=== PATIENT | male | born 1960 | race Caucasian/White ===

== ENCOUNTER 2020-10-23 11:50 | Emergency (ER) | payer OTHER, SELFPAY ==
--- NOTE | ~2020-10-23 | CT_ITS ---
EXAMINATION: CT ABDOMEN AND PELVIS WITH CONTRAST CLINICAL INFORMATION: Left lower quadrant pain. Trouble urinating. COMPARISON: None TECHNIQUE: Multidetector volumetric images were obtained from the superior aspect of the liver through the pubic symphysis following administration 85 mL of Omnipaque 350 intravenous contrast. Sagittal and coronal reformatted images were obtained on the technologist's workstation. Oral contrast: Yes This CT examination was performed using dose optimization techniques as appropriate, variously including the following: *Automated exposure control *Adjustment of mA and/or kV according to patient size (this includes techniques or standardized protocols for targeted exams where dose is matched to indication/reason for exam; i.e. extremities or head) *Use of iterative reconstruction technique DLP: 550 mGy-cm FINDINGS: LUNG BASES: The visualized lung bases are unremarkable. LIVER, GALLBLADDER, AND BILIARY TREE: There is a 1.6 cm low-attenuation lesion in the periphery of the medial segment of the left lobe of the liver. The appearance following contrast measure 50 not compatible with a simple cyst. The liver is otherwise unremarkable. The gallbladder is unremarkable. There is no biliary duct dilatation. PANCREAS: Unremarkable. SPLEEN: Unremarkable. ADRENAL GLANDS: The left adrenal gland is enlarged and low in attenuation probably representing adenomatous change. The right adrenal gland is normal-appearing. KIDNEYS AND URETERS:The right kidney is small with areas of renal cortical thinning or scarring. There is a small 1 to 2 mm stone in the upper pole of the right kidney. The left kidney is normal. BLADDER: There is mild wall thickening along the left bladder wall adjacent to the diverticular disease. No air in the bladder is seen. GASTROINTESTINAL TRACT: There is diverticulosis of the colon. There is a wall thickening and low attenuation in the wall of the proximal sigmoid colon. There is stranding of the adjacent fat and trace amount of adjacent fluid.. Findings are suggestive of acute diverticulitis. This abuts the left lateral bladder wall and there is focal mild bladder wall thickening, likely reactive. Small and large bowel is otherwise unremarkable. The appendix is normal. The stomach is normal. ABDOMINAL WALL: No significant hernia is appreciated. LYMPH NODES: There are no enlarged lymph nodes. There is no ascites. VASCULAR: There is evidence of mild atherosclerotic disease. PELVIC VISCERA: The prostate gland appears to have been removed. OSSEOUS STRUCTURES: There are degenerative changes of the spine. CT/CT abdomen pelvis w con IMPRESSION: Sigmoid diverticulitis. This abuts the bladder and there is a focal bladder wall thickening. No air in the bladder to suggest fistula is seen. Small right kidney with areas of renal cortical thinning or scarring. Small right upper pole renal stone. Enlarged left adrenal gland probably representing adenomatous change. 1.6 cm liver lesion not compatible with a simple cyst. Comparison with old outside exams if available is recommended. Otherwise this could be further evaluated with ultrasound or MRI.
[2020-10-23 12:08] VITALS: BP 180/82; PULSE 82; RESP 16; TEMP 37; O2SAT 99; BMI 24.3
--- NOTE | 2020-10-23 12:34 | ED_ITS ---
HPI - Abdominal Pain General Chief Complaint: Abdominal Pain Stated Complaint: low abd pain Time Seen by Provider: 10/23/20 12:17 Source: patient Mode of arrival: ambulatory Limitations: no limitations History of Present Illness HPI narrative: 60 yo male with past medical history of prostate cancer s/p TURP in 2016 here with complaints of lower abdominal pain with decreased urination for the last 2 days. Patient told me that he is only able to dribble a small amount of urine. No dysuria, hematuria, fevers, chills, nausea, vomiting, constipation. Related Data Previous Rx's Medication Instructions Recorded levofloxacin 750 mg PO DAILY 10 Days #10 tab 10/23/20 metronidazole [Flagyl] 500 mg PO TID #21 tab 10/23/20 oxycodone 5 mg PO Q6H PRN #10 tab 10/23/20 tamsulosin [Flomax] 0.4 mg PO DAILY #20 cap 10/23/20 Allergies Allergy/AdvReac Type Severity Reaction Status Date / Time No Known Allergies Allergy Unverified 02/16/20 15:20 [No Known Allergies*] Review of Systems Review of Systems Yes all other systems are reviewed and are negative Constitutional: Reports no additional constitutional complaints, Denies body ache(s), Denies chills, Denies fever(s), Denies headache(s) and Denies weakness Eyes: Reports no additional eye complaints and Denies change in vision Reports system reviewed and no additional complaints, except as documented, Denies dizziness, Denies headache(s), Denies nasal congestion, Denies nasal discharge and Denies neck pain Cardiovascular: Reports no additional cardiovascular complaints, Denies chest pain, Denies leg edema and Denies dyspnea Respiratory: Reports no additional respiratory complaints, Denies cough and Denies dyspnea Gastrointestinal: Reports no additional gastrointestinal complaints, Reports abdominal pain, Denies diarrhea, Denies nausea and Denies vomiting Genitourinary: Reports oliguria, Denies dysuria, Denies flank pain, Denies testicular pain, Denies urinary frequency, Reports urinary hesitancy, Denies urinary incontinence and Denies urinary urgency Musculoskeletal: Reports no additional musculoskeletal complaints, Denies back pain, Denies arthralgias, Denies joint swelling, Denies neck pain, Denies numbness and Denies tingling Skin/Breast: Reports system reviewed and no additional complaints, except as docu and Denies rash Reports system reviewed and no additional complaints, except as documented, Denies Abnormal speech present, Denies dizziness, Denies headache(s), Denies numbness, Denies tingling and Denies weakness Physical Exam Vital Signs: Vital Signs: Last Vital Signs Temp 98.6 F 10/23/20 12:08 Pulse 70 10/23/20 16:01 Resp 16 10/23/20 16:01 BP 149/85 H 10/23/20 16:01 Pulse Ox 96 10/23/20 16:01 Body Mass Index 24.3 Const: General: cooperative, healthy appearing, comfortable and no acute distress Orientation/consciousness: patient oriented x3 Limitations: no limitations HENMT: Head: Yes normal to inspection Ears: hearing grossly normal bilaterally General nose exam: Normal external nose present Face and sinus: Yes normal facial exam Mouth: Normal oral and palatal mucosa present Throat: Yes posterior oropharynx normal Eyes: General: appearance normal, both eyes and all related structures Pupils: Equal, round and reactive pupils present Neck: Neck: Yes normal visual inspection Chest: Chest palpation & inspection: normal inspection of the chest Resp: Effort & Inspection: normal respiratory effort Auscultation: clear to auscultation bilaterally Cardio: Rate: regular rate Rhythm: regular rhythm Peripheral pulses: Peripheral pulses 2+ throughout GI: Inspection: Yes normal to inspection Palpation (GI): Soft to palpation and Tenderness to palpation present (GI) (Suprapubic and left lower quadrant with rebound) Auscultation: normal bowel sounds : Other: Deferred exam Back/Spine/Pelvis: Thoracic/Lumbar Spine: thoracic and lumbar spine normal to inspection Skin: General skin exam: no rashes or lesions noted Neuro: General: patient oriented x3, no focal motor deficits and normal sensation to monofilament Cranial nerves: Yes Equal, round and reactive pupils present Cognition (Neuro): normal cognition Speech: No Abnormal speech present Gait exam (Neuro): Normal gait present Motor exam (neuro): 5/5 motor strength present throughout Extrem: General: Yes normal to inspection Course Course Course Narrative: 60-year-old male here with urinary dribbling/voiding small amounts, lower abdominal pain for 2 days. Will need postvoid residual, UA, labs, CT A/P 1555-Labs unremarkable. PVR 70ml. CT c/w with sigmoid diverticulitis. This abuts the bladder and there is a focal bladder wall thickening area. No air in the bladder to suggest a fistula. UA pending. Pain well controlled. No vom iting. Patient can likely be discharged home. 1630-UA is negative. Pain well controlled. Reviewed worrisome signs and symptoms when to return to the emergency department. Comfortable discharge ho me. MDM - Abdominal Pain Differential Diagnosis Differential diagnosis: Likely calculus of kidney, diverticulitis and renal colic Medical Records Attestation: I reviewed the patient's medical records. Lab Data Attestation: I reviewed the patient's lab results. Result diagrams: 10/23/20 13:47 10/23/20 13:47 Labs: Lab Results 10/23/20 10/23/20 10/23/20 Range/Units 13:47 13:47 13:47 WBC 10.3 (4.8-10.8) X10*3/uL RBC 4.84 (4.60-5.80) X10*6/uL Hgb 15.5 (14.0-18.0) g/dl Hct 45.2 (42-52) % MCV 93.4 (80-98) fL MCH 32.0 (27.0-33.0) pg MCHC 34.3 (31.0-36.0) g/dl RDW 12.7 (11.0-16.0) % Plt Count 208 (160-400) X10*3/uL MPV 9.4 (9.4-12.4) fL Immature Gran % (Auto) 0.4 (0.0-0.4) % Neut % (Auto) 76.5 H (45-73) % Lymph % (Auto) 13.4 L (20-40) % [place] % (Auto) 7.1 (2-11) % Eos % (Auto) 2.0 (0-4) % Baso % (Auto) 0.6 (0-2) % Lymph # (Auto) 1.4 (1.2-4.9) X10*3/uL [place] # (Auto) 0.7 (0.1-1.2) X10*3/uL Eos # (Auto) 0.2 (0.0-0.4) X10*3/uL Baso # (Auto) 0.1 (0.0-0.2) X10*3/uL Abs Immat Gran (auto) 0.04 H (0.00-0.03) X10*3/uL Absolute Neuts (auto) 7.9 (2.0-8.3) X10*3/uL Absolute Nucleated RBC 0.000 (0.0-0.012) X10*3/uL Nucleated RBC % (auto) 0.0 (0.0-0.2) /100WBC Hold Blue Top SEE NOTE Sodium 138 (135-145) mmol/L Potassium 4.2 (3.3-5.1) mmol/L Chloride 104 (96-108) mmol/L Carbon Dioxide 25 (22-29) mmol/L Anion Gap 13 (12-20) BUN 11 (9-16) mg/dL Creatinine 0.89 (0.5-1.4) mg/dL Estim Creat Clear Calc 83.2 Estimated GFR > 60 Random Glucose 89 (60-115) mg/dL Calcium 9.0 (8.4-10.2) mg/dL Total Bilirubin 0.3 (0.0-1.0) mg/dL Direct Bilirubin 0.2 (0.0-0.5) mg/dL AST 17 (5-37) U/L ALT 23 (0-40) U/L Alkaline Phosphatase 88 (39-117) U/L Total Protein 6.9 (6.5-8.0) g/dL Albumin 4.2 (3.5-5.0) g/dL Urine Color Urine Appearance Urine pH (5.0-8.0) Ur Specific [place] (1.005-1.025) Urine Protein (NEG-TRACE) MG/DL Urine Glucose (UA) (NEG) MG/DL Urine Ketones (NEG) MG/DL Urine Blood (NEG) Urine Nitrite (NEG) Ur Leukocyte Esterase (NEG) Urine RBC (0) /HPF Urine WBC (0-4) /HPF Ur Squamous Epith Cells /LPF Urine Bacteria /LPF 10/23/20 Range/Units 15:56 WBC (4.8-10.8) X10*3/uL RBC (4.60-5.80) X10*6/uL Hgb (14.0-18.0) g/dl Hct (42-52) % MCV (80-98) fL MCH (27.0-33.0) pg MCHC (31.0-36.0) g/dl RDW (11.0-16.0) % Plt Count (160-400) X10*3/uL MPV (9.4-12.4) fL Immature Gran % (Auto) (0.0-0.4) % Neut % (Auto) (45-73) % Lymph % (Auto) (20-40) % [place] % (Auto) (2-11) % Eos % (Auto) (0-4) % Baso % (Auto) (0-2) % Lymph # (Auto) (1.2-4.9) X10*3/uL [place] # (Auto) (0.1-1.2) X10*3/uL Eos # (Auto) (0.0-0.4) X10*3/uL Baso # (Auto) (0.0-0.2) X10*3/uL Abs Immat Gran (auto) (0.00-0.03) X10*3/uL Absolute Neuts (auto) (2.0-8.3) X10*3/uL Absolute Nucleated RBC (0.0-0.012) X10*3/uL Nucleated RBC % (auto) (0.0-0.2) /100WBC Hold Blue Top Sodium (135-145) mmol/L Potassium (3.3-5.1) mmol/L Chloride (96-108) mmol/L Carbon Dioxide (22-29) mmol/L Anion Gap (12-20) BUN (9-16) mg/dL Creatinine (0.5-1.4) mg/dL Estim Creat Clear Calc Estimated GFR Random Glucose (60-115) mg/dL Calcium (8.4-10.2) mg/dL Total Bilirubin (0.0-1.0) mg/dL Direct Bilirubin (0.0-0.5) mg/dL AST (5-37) U/L ALT (0-40) U/L Alkaline Phosphatase (39-117) U/L Total Protein (6.5-8.0) g/dL Albumin (3.5-5.0) g/dL Urine Color YELLOW Urine Appearance CLEAR Urine pH 6.0 (5.0-8.0) Ur Specific [place] <= 1.005 (1.005-1.025) Urine Protein NEG (NEG-TRACE) MG/DL Urine Glucose (UA) NEG (NEG) MG/DL Urine Ketones NEG (NEG) MG/DL Urine Blood TRACE (NEG) Urine Nitrite NEG (NEG) Ur Leukocyte Esterase NEG (NEG) Urine RBC 0-2 (0) /HPF Urine WBC 0 (0-4) /HPF Ur Squamous Epith Cells TRACE /LPF Urine Bacteria NONE /LPF Imaging Data CT scan - abdomen: Attestation: I personally reviewed and interpreted this imaging study as follows: Radiologist's impression: [facility] [place] [id number] Scan ReportSigned Patient: Prieto Singh JMR#: [id number]: 8Acct:[id number]/Sex: 60 / MADM Date: 10/23/20Loc: EDAttending Dr: Ordering Physician: DAVE GRANT NP Date of Service: 10/23/20 Procedure(s): CT abdomen pelvis w con Accession Number(s): [id number] cc: DAVE GRANT NP~ EXAMINATION: CT ABDOMEN AND PELVIS WITH CONTRAST CLINICAL INFORMATION: Left lower quadrant pain. Trouble urinating. COMPARISON: None TECHNIQUE: Multidetector volumetric images were obtained from the superior aspect of the liver through the pubic symphysis following administration 85 mL of Omnipaque 350 intravenous contrast. Sagittal and coronal reformatted images were obtained on the technologist's workstation. Oral contrast: Yes This CT examination was performed using dose optimization techniques as appropriate, variously including the following: *Automated exposure control *Adjustment of mA and/or kV according to patient size (this includes techniques or standardized protocols for targeted exams where dose is matched to indication/reason for exam; i.e. extremities or head) *Use of iterative reconstruction technique DLP: 550 mGy-cm FINDINGS: LUNG BASES: The visualized lung bases are unremarkable. LIVER, GALLBLADDER, AND BILIARY TREE: There is a 1.6 cm low-attenuation lesion in the periphery of the medial segment of the left lobe of the liver. The appearance following contrast measure 50 not compatible with a simple cyst. The liver is otherwise unremarkable. The gallbladder is unremarkable. There is no biliary duct dilatation. PANCREAS: Unremarkable. SPLEEN: Unremarkable. ADRENAL GLANDS: The left adrenal gland is enlarged and low in attenuation probably representing adenomatous change. The right adrenal gland is normal-appearing. KIDNEYS AND URETERS:The right kidney is small with areas of renal cortical thinning or scarring. There is a small 1 to 2 mm stone in the upper pole of the right kidney. The left kidney is normal. BLADDER: There is mild wall thickening along the left bladder wall adjacent to the diverticular disease. No air in the bladder is seen. GASTROINTESTINAL TRACT: There is diverticulosis of the colon. There is a wall thickening and low attenuation in the wall of the proximal sigmoid colon. There is stranding of the adjacent fat and trace amount of adjacent fluid.. Findings are suggestive of acute diverticulitis. This abuts the left lateral bladder wall and there is focal mild bladder wall thickening, likely reactive. Small and large bowel is otherwise unremarkable. The appendix is normal. The stomach is normal. ABDOMINAL WALL: No significant hernia is appreciated. LYMPH NODES: There are no enlarged lymph nodes. There is no ascites. VASCULAR: There is evidence of mild atherosclerotic disease. PELVIC VISCERA: The prostate gland appears to have been removed. OSSEOUS STRUCTURES: There are degenerative changes of the spine. CT/CT abdomen pelvis w con IMPRESSION: Sigmoid diverticulitis. This abuts the bladder and there is a focal bladder wall thickening. No air in the bladder to suggest fistula is seen. Small right kidney with areas of renal cortical thinning or scarring. Small right upper pole renal stone. Enlarged left adrenal gland probably representing adenomatous change. 1.6 cm liver lesion not compatible with a simple cyst. Comparison with old outside exams if available is recommended. Otherwise this could be further evaluated with ultrasound or MRI. Discharge Plan Discharge Clinical Impression: Diverticulitis Patient Disposition: Home, Self-Care Instructions: Diverticulitis (ED) Additional Instructions: Low residue diet Start your antibiotics as soon as possible Pain medications Return for severe pain, vomiting, fever Your CT showed multiple incidental findings. You were given a copy of your report. You can follow-up with your primary care doctor for this Prescriptions: New metronidazole [Flagyl] 500 mg tablet 500 mg PO TID Qty: 21 RF: 0 levofloxacin 750 mg tablet 750 mg PO DAILY 10 Days Qty: 10 RF: 0 oxycodone 5 mg tablet 5 mg PO Q6H PRN (Reason: pain) Qty: 10 RF: 0 tamsulosin [Flomax] 0.4 mg capsule 0.4 mg PO DAILY Qty: 20 RF: 0 Referrals: Sherron Claros MD [Primary Care Provider] - 2 days Discharge Date/Time: 10/23/20 16:43 [facility] Past Medical History Attestation statement: The following information was validated with the patient. Source: old records reviewed and nursing notes reviewed Medical History Myocardial infarct Prostate CA Social History Social History Alcohol intake: never Smoking Status: Current every day smoker Use of substances other than those prescribed or required for medical reasons: No Advance Directives: No Advance Directives Information Provided: No
[2020-10-23 13:51] LABS: MANUAL DIFF FLAG NO
[2020-10-23 13:54] LABS: Basophils Absolute Auto 0.1 X10*3/uL (0.0-0.2); Basophils Percent Auto 0.6 % (0-2); Eosinophils Absolute Auto 0.2 X10*3/uL (0.0-0.4); Hematocrit 45.2 % (42-52); Hemoglobin 15.5 g/dl (14.0-18.0); Imm Gran Abs Auto 0.04 X10*3/uL (0.00-0.03); Imm Gran Pct Auto 0.4 % (0.0-0.4); Lymphocytes Absolute Auto 1.4 X10*3/uL (1.2-4.9); Lymphocytes Percent Auto 13.4 % (20-40); Mean Corpuscular HGB Conc 34.3 g/dl (31.0-36.0); Mean Corpuscular Volume 93.4 fL (80-98); Mean Platelet Volume 9.4 fL (9.4-12.4); Monocytes Absolute Auto 0.7 X10*3/uL (0.1-1.2); Monocytes Percent Auto 7.1 % (2-11); Neutrophils Absolute Auto 7.9 X10*3/uL (2.0-8.3); Neutrophils Percent Auto 76.5 % (45-73); Platelet Count 208 X10*3/uL (160-400); Red Blood Count 4.84 X10*6/uL (4.60-5.80); Red Cell Distribution Width 12.7 % (11.0-16.0); White Blood Count 10.3 X10*3/uL (4.8-10.8)
[2020-10-23 14:21] LABS: Alanine Aminotransferase 23 U/L (0-40); Albumin Level 4.2 g/dL (3.5-5.0); Alkaline Phosphatase 88 U/L (39-117); Anion Gap 13 (12-20); Aspartate Amino Transferase 17 U/L (5-37); Bilirubin Direct 0.2 mg/dL (0.0-0.5); Bilirubin Total 0.3 mg/dL (0.0-1.0); Blood Urea Nitrogen 11 mg/dL (9-16); Carbon Dioxide 25 mmol/L (22-29); Chloride 104 mmol/L (96-108); Creatinine Clr Calc Pharmacy 83.2; Estimated Glomerular Filt Rate > 60; Glucose Random 89 mg/dL (60-115); Potassium 4.2 mmol/L (3.3-5.1); Sodium 138 mmol/L (135-145); Total Protein 6.9 g/dL (6.5-8.0)
[2020-10-23 16:01] VITALS: BP 149/85; PULSE 70; RESP 16; O2SAT 96
[2020-10-23 16:06] LABS: Glucose Urine UA NEG (NEG); Leukocyte Esterase Urine NEG (NEG); Nitrite Urine NEG (NEG); Specific Gravity - Urine <= 1.005 (1.005-1.025); Urine Blood TRACE (NEG); Urine Ketones NEG (NEG); Urine Protein NEG (NEG-TRACE)
[2020-10-23 16:07] LABS: Appearance Urine CLEAR; Color Urine YELLOW
[2020-10-23 16:14] LABS: RBC Urine 0-2 /HPF (0); Squamous Epithelial Cell Urine TRACE /LPF; WBC Urine 0 /HPF (0-4)
== END 2020-10-23 16:43 | disposition home or self-care (01) ==
PROVIDERS: Nurse Practitioner Family; Emergency Provider Emergency Medicine; PCP Internal Medicine Pulmonary Disease
DX: K57.32 Diverticulitis of large intestine without perforation or abscess without bleeding (principal); R10.30 Lower abdominal pain, unspecified; Z85.46 Personal history of malignant neoplasm of prostate; R93.2 Abnormal findings on diagnostic imaging of liver and biliary tract; K76.9 Liver disease, unspecified
CPT/HCPCS: 36415; 51798; 74177; 80048; 80076; 81001; 85025; 99284; 99285

== ENCOUNTER 2021-01-03 07:18 | Outpatient (REF) | payer OTHER, SELFPAY ==
[2021-01-03 08:31] LABS: MANUAL DIFF FLAG NO
[2021-01-03 08:34] LABS: Basophils Absolute Auto 0.1 X10*3/uL (0.0-0.2); Basophils Percent Auto 0.8 % (0-2); Eosinophils Absolute Auto 0.2 X10*3/uL (0.0-0.4); Eosinophils Percent Auto 3.1 % (0-4); Hematocrit 47.4 % (42-52); Hemoglobin 15.5 g/dl (14.0-18.0); Imm Gran Abs Auto 0.03 X10*3/uL (0.00-0.03); Imm Gran Pct Auto 0.4 % (0.0-0.4); Lymphocytes Absolute Auto 1.5 X10*3/uL (1.2-4.9); Lymphocytes Percent Auto 20.6 % (20-40); Mean Corpuscular HGB Conc 32.7 g/dl (31.0-36.0); Mean Corpuscular Hemoglobin 31.4 pg (27.0-33.0); Mean Platelet Volume 9.7 fL (9.4-12.4); Monocytes Absolute Auto 0.5 X10*3/uL (0.1-1.2); Monocytes Percent Auto 6.2 % (2-11); Neutrophils Absolute Auto 5.1 X10*3/uL (2.0-8.3); Neutrophils Percent Auto 68.9 % (45-73); Platelet Count 267 X10*3/uL (160-400); Red Blood Count 4.94 X10*6/uL (4.60-5.80); White Blood Count 7.5 X10*3/uL (4.8-10.8)
[2021-01-03 08:52] LABS: Glucose Urine UA NEG (NEG); Leukocyte Esterase Urine NEG (NEG); Nitrite Urine NEG (NEG); Specific Gravity - Urine 1.025 (1.005-1.025); Urine Blood 1+ (NEG); Urine Ketones NEG (NEG); Urine Protein NEG (NEG-TRACE)
[2021-01-03 08:54] LABS: Appearance Urine CLEAR; Color Urine YELLOW
[2021-01-03 09:28] LABS: Alanine Aminotransferase 32 U/L (0-40); Albumin Level 4.1 g/dL (3.5-5.0); Alkaline Phosphatase 91 U/L (39-117); Anion Gap 14 (12-20); Aspartate Amino Transferase 26 U/L (5-37); Bilirubin Total 0.3 mg/dL (0.0-1.0); Blood Urea Nitrogen 14 mg/dL (9-16); Calcium 9.1 mg/dL (8.4-10.2); Carbon Dioxide 27 mmol/L (22-29); Chloride 106 mmol/L (96-108); Cholesterol 183 mg/dL; Estimated Glomerular Filt Rate > 60; Glucose Random 89 mg/dL (60-115); HDL Cholesterol 39 mg/dL; LDL Cholesterol Calculated 120 mg/dl; Potassium 4.5 mmol/L (3.3-5.1); Sodium 142 mmol/L (135-145); Total Protein 6.6 g/dL (6.5-8.0); Triglycerides 120 mg/dL; Uric Acid 6.6 mg/dL (3.4-7.0)
[2021-01-03 09:35] LABS: Mucus Urine TRACE /LPF; Squamous Epithelial Cell Urine TRACE /LPF; WBC Urine 0 /HPF (0-4)
[2021-01-03 09:49] LABS: Free T4 (Free Thyroxine) 0.98 ng/dL (0.71-1.85); Prostate Specific Antigen < 0.05 ng/mL (<0.05-4.0); Thyroid Stimulating Hormone 1.32 uIU/mL (0.32-4.0); Vitamin D 25-OH Total 12.2 ng/mL (>30)
[2021-01-08 17:27] LABS: Testosterone, Total 339 ng/dL (250-1100)
== END 2021-01-03 07:19 | disposition home or self-care (01) ==
LOC: HO.LAB 07:18
PROVIDERS: PCP Internal Medicine Pulmonary Disease; Visit Provider Internal Medicine Pulmonary Disease
DX: C61 Malignant neoplasm of prostate (principal); I21.3 ST elevation (STEMI) myocardial infarction of unspecified site; E55.9 Vitamin D deficiency, unspecified; F17.200 Nicotine dependence, unspecified, uncomplicated; Z12.5 Encounter for screening for malignant neoplasm of prostate
CPT/HCPCS: 36415; 80053; 80061; 81001; 82306; 84153; 84402; 84403; 84439; 84443; 84550; 85025

== ENCOUNTER 2021-03-20 09:07 | Outpatient (REF) | payer OTHER, SELFPAY ==
--- NOTE | ~2021-03-20 | US_ITS ---
EXAMINATION: US ABDOMEN COMPLETE CLINICAL INFORMATION: Lesion of left lobe of liver. COMPARISON: CT abdomen and pelvis 10/23/2020. TECHNIQUE: Real-time imaging of the abdominal viscera. FINDINGS: PANCREAS: Normal. ABDOMINAL AORTA: The proximal, mid, and distal segments are normal in caliber. INFERIOR VENA CAVA: Visualized portions are normal. LIVER: The liver is normal in size. The liver contour is normal. Parenchymal echogenicity is normal. There are 2 adjacent cysts in the left lobe of the liver or a bilobed cyst. Measured as 2 adjacent cysts, these measure 2.2 x 1.8 x 1.8 cm and 1.1 x 0.7 x 1.3 cm. No other focal liver lesion is seen. There is no intrahepatic biliary duct dilatation seen. GALLBLADDER: Normal. The gallbladder is physiologically distended without evidence of stones, polyps, wall thickening or pericholecystic fluid. COMMON BILE DUCT: Normal in caliber measuring 0.3 cm in diameter. RIGHT KIDNEY: Normal. No hydronephrosis. No renal calculi or focal parenchymal lesions. The kidney measures 8.5 cm in maximum dimension. LEFT KIDNEY: Normal. No hydronephrosis. No renal calculi or focal parenchymal lesions. The kidney measures 11.3 cm in maximum dimension. SPLEEN: Normal. The spleen measures 9.4 cm in maximum dimension. FREE FLUID: None. US/US abdomen complete IMPRESSION: 2 adjacent cysts in the left lobe of the liver or a bilobed cyst accounting for abnormality on CT scan. By ultrasound, these appear to represent simple cysts.
== END 2021-03-20 09:08 | disposition home or self-care (01) ==
LOC: HO.US 09:07
PROVIDERS: PCP Internal Medicine; Visit Provider Internal Medicine
DX: K76.89 Other specified diseases of liver (principal)
CPT/HCPCS: 76700

== ENCOUNTER 2021-05-31 11:09 | Outpatient (REF) | payer OTHER, SELFPAY ==
[2021-05-31 11:22] LABS: MANUAL DIFF FLAG NO
[2021-05-31 11:48] LABS: Basophils Absolute Auto 0.1 X10*3/uL (0.0-0.2); Basophils Percent Auto 0.9 % (0-2); Eosinophils Absolute Auto 0.3 X10*3/uL (0.0-0.4); Eosinophils Percent Auto 3.2 % (0-4); Hematocrit 47.4 % (42.0-52.0); Hemoglobin 15.8 g/dl (14.0-18.0); Imm Gran Abs Auto 0.05 X10*3/uL (0.00-0.03); Imm Gran Pct Auto 0.6 % (0.0-0.4); Lymphocytes Absolute Auto 2.5 X10*3/uL (1.2-4.9); Lymphocytes Percent Auto 28.1 % (20-40); Mean Corpuscular HGB Conc 33.3 g/dl (31.0-36.0); Mean Corpuscular Hemoglobin 31.5 pg (27.0-33.0); Mean Corpuscular Volume 94.6 fL (80.0-98.0); Mean Platelet Volume 9.4 fL (9.4-12.4); Monocytes Absolute Auto 0.6 X10*3/uL (0.1-1.2); Monocytes Percent Auto 7.3 % (2-11); Neutrophils Absolute Auto 5.3 x10*3/uL (2.0-8.3); Neutrophils Percent Auto 59.9 % (45-73); Platelet Count 269 X10*3/uL (160-400); Red Blood Count 5.01 X10*6/uL (4.60-5.80); Red Cell Distribution Width 12.9 % (11.0-16.0); White Blood Count 8.8 X10*3/uL (4.8-10.8)
[2021-05-31 12:11] LABS: Alanine Aminotransferase 55 U/L (0-40); Albumin Level 4.3 g/dL (3.5-5.0); Alkaline Phosphatase 109 U/L (39-117); Anion Gap 10 (12-20); Aspartate Amino Transferase 38 U/L (5-37); Bilirubin Total 0.6 mg/dL (0.0-1.0); Blood Urea Nitrogen 10 mg/dL (9-16); Calcium 9.6 mg/dL (8.4-10.2); Carbon Dioxide 33 mmol/L (22-29); Chloride 102 mmol/L (96-108); Estimated Glomerular Filt Rate > 60; Glucose Random 88 mg/dL (60-115); Sodium 141 mmol/L (135-145); Total Protein 7.2 g/dL (6.5-8.0)
== END 2021-05-31 11:10 | disposition home or self-care (01) ==
LOC: HO.LAB 11:09
PROVIDERS: PCP Internal Medicine; Visit Provider Internal Medicine
DX: E78.00 Pure hypercholesterolemia, unspecified (principal); J44.9 Chronic obstructive pulmonary disease, unspecified
CPT/HCPCS: 36415; 80053; 85025

== ENCOUNTER 2021-06-20 15:00 | Outpatient (RCR) | payer OTHER, SELFPAY | END 2021-06-27 10:26 | disposition home or self-care (01) | LOC: HO.PT 15:00 | PROVIDERS: PCP Internal Medicine; Visit Provider Internal Medicine | DX: M46.1 Sacroiliitis, not elsewhere classified (principal) | CPT/HCPCS: 97110; 97162 ==

== ENCOUNTER 2021-11-18 10:25 | Outpatient (REF) | payer OTHER, SELFPAY ==
[2021-11-18 10:30] LABS: MANUAL DIFF FLAG NO
[2021-11-18 10:58] LABS: Basophils Absolute Auto 0.1 X10*3/uL (0.0-0.2); Basophils Percent Auto 1.2 % (0-2); Eosinophils Absolute Auto 0.2 X10*3/uL (0.0-0.4); Eosinophils Percent Auto 3.1 % (0-4); Hematocrit 46.7 % (42.0-52.0); Hemoglobin 15.4 g/dl (14.0-18.0); Imm Gran Abs Auto 0.03 X10*3/uL (0.00-0.03); Imm Gran Pct Auto 0.4 % (0.0-0.4); Lymphocytes Absolute Auto 1.9 X10*3/uL (1.2-4.9); Lymphocytes Percent Auto 24.4 % (20-40); Mean Corpuscular Hemoglobin 30.4 pg (27.0-33.0); Mean Corpuscular Volume 92.3 fL (80.0-98.0); Mean Platelet Volume 9.5 fL (9.4-12.4); Monocytes Absolute Auto 0.6 X10*3/uL (0.1-1.2); Neutrophils Percent Auto 63.9 % (45-73); Platelet Count 271 X10*3/uL (160-400); Red Blood Count 5.06 X10*6/uL (4.60-5.80); Red Cell Distribution Width 13.3 % (11.0-16.0); White Blood Count 7.8 X10*3/uL (4.8-10.8)
[2021-11-18 11:46] LABS: Alanine Aminotransferase 49 U/L (0-40); Albumin Level 4.4 g/dL (3.5-5.0); Alkaline Phosphatase 108 U/L (39-117); Anion Gap 13 (12-20); Aspartate Amino Transferase 28 U/L (5-37); Bilirubin Total 0.6 mg/dL (0.0-1.0); Blood Urea Nitrogen 12 mg/dL (9-16); Calcium 8.9 mg/dL (8.4-10.2); Carbon Dioxide 26 mmol/L (22-29); Chloride 106 mmol/L (96-108); Estimated Glomerular Filt Rate > 60; Glucose Random 84 mg/dL (60-115); Potassium 4.2 mmol/L (3.3-5.1); Sodium 141 mmol/L (135-145); Total Protein 7.1 g/dL (6.5-8.0)
[2021-11-18 12:09] LABS: Vitamin D 25-OH Total 12.8 ng/mL (>30)
== END 2021-11-18 10:26 | disposition home or self-care (01) ==
LOC: HO.LAB 10:25
PROVIDERS: PCP Internal Medicine; Visit Provider Internal Medicine
DX: E55.9 Vitamin D deficiency, unspecified (principal); E78.00 Pure hypercholesterolemia, unspecified; J44.9 Chronic obstructive pulmonary disease, unspecified; I10 Essential (primary) hypertension; I25.10 Atherosclerotic heart disease of native coronary artery without angina pectoris
CPT/HCPCS: 36415; 80053; 82306; 85025

== ENCOUNTER 2022-02-07 07:31 | Outpatient (REF) | payer OTHER, SELFPAY ==
[2022-02-07 07:40] LABS: MANUAL DIFF FLAG NO
[2022-02-07 07:50] LABS: Basophils Absolute Auto 0.1 X10*3/uL (0.0-0.2); Basophils Percent Auto 1.2 % (0-2); Eosinophils Absolute Auto 0.3 X10*3/uL (0.0-0.4); Eosinophils Percent Auto 3.3 % (0-4); Hematocrit 46.5 % (42.0-52.0); Hemoglobin 15.5 g/dl (14.0-18.0); Imm Gran Abs Auto 0.04 X10*3/uL (0.00-0.03); Imm Gran Pct Auto 0.5 % (0.0-0.4); Lymphocytes Absolute Auto 1.8 X10*3/uL (1.2-4.9); Lymphocytes Percent Auto 22.1 % (20-40); Mean Corpuscular HGB Conc 33.3 g/dl (31.0-36.0); Monocytes Absolute Auto 0.5 X10*3/uL (0.1-1.2); Monocytes Percent Auto 6.5 % (2-11); Neutrophils Absolute Auto 5.4 x10*3/uL (2.0-8.3); Neutrophils Percent Auto 66.4 % (45-73); Platelet Count 242 X10*3/uL (160-400); Red Cell Distribution Width 13.4 % (11.0-16.0); White Blood Count 8.1 X10*3/uL (4.8-10.8)
[2022-02-07 08:14] LABS: Alanine Aminotransferase 29 U/L (0-40); Albumin Level 4.3 g/dL (3.5-5.0); Alkaline Phosphatase 110 U/L (39-117); Anion Gap 16 (12-20); Aspartate Amino Transferase 20 U/L (5-37); Bilirubin Total 0.4 mg/dL (0.0-1.0); Blood Urea Nitrogen 10 mg/dL (9-16); Carbon Dioxide 25 mmol/L (22-29); Chloride 106 mmol/L (96-108); Cholesterol 146 mg/dL; Estimated Glomerular Filt Rate > 60; Glucose Random 90 mg/dL (60-115); HDL Cholesterol 38 mg/dL; LDL Cholesterol Calculated 82 mg/dl; Potassium 4.3 mmol/L (3.3-5.1); Sodium 143 mmol/L (135-145); Triglycerides 132 mg/dL
[2022-02-07 08:36] LABS: Vitamin D 25-OH Total 24.6 ng/mL (>30)
== END 2022-02-07 07:32 | disposition home or self-care (01) ==
LOC: HO.LAB 07:31
PROVIDERS: PCP Internal Medicine; Visit Provider Internal Medicine
DX: I25.10 Atherosclerotic heart disease of native coronary artery without angina pectoris (principal); E78.00 Pure hypercholesterolemia, unspecified; J44.9 Chronic obstructive pulmonary disease, unspecified; E55.9 Vitamin D deficiency, unspecified
CPT/HCPCS: 36415; 80053; 80061; 82306; 85025

== ENCOUNTER 2022-09-08 10:39 | Outpatient (REF) | payer OTHER, SELFPAY ==
[2022-09-08 10:49] LABS: MANUAL DIFF FLAG NO
[2022-09-08 11:44] LABS: Basophils Absolute Auto 0.1 X10*3/uL (0.0-0.2); Basophils Percent Auto 1.1 % (0-2); Eosinophils Absolute Auto 0.3 X10*3/uL (0.0-0.4); Eosinophils Percent Auto 3.4 % (0-4); Hematocrit 48.5 % (42.0-52.0); Hemoglobin 16.2 g/dl (14.0-18.0); Imm Gran Abs Auto 0.03 X10*3/uL (0.00-0.03); Imm Gran Pct Auto 0.4 % (0.0-0.4); Lymphocytes Absolute Auto 1.8 X10*3/uL (1.2-4.9); Lymphocytes Percent Auto 21.5 % (20-40); Mean Corpuscular HGB Conc 33.4 g/dl (31.0-36.0); Mean Corpuscular Hemoglobin 31.2 pg (27.0-33.0); Mean Corpuscular Volume 93.4 fL (80.0-98.0); Monocytes Absolute Auto 0.5 X10*3/uL (0.1-1.2); Monocytes Percent Auto 6.6 % (2-11); Neutrophils Absolute Auto 5.5 x10*3/uL (2.0-8.3); Platelet Count 286 X10*3/uL (160-400); Red Blood Count 5.19 X10*6/uL (4.60-5.80); Red Cell Distribution Width 13.1 % (11.0-16.0); White Blood Count 8.2 X10*3/uL (4.8-10.8)
[2022-09-08 12:18] LABS: Alanine Aminotransferase 22 U/L (0-40); Albumin Level 4.1 g/dL (3.5-5.0); Alkaline Phosphatase 102 U/L (39-117); Anion Gap 13 (12-20); Aspartate Amino Transferase 18 U/L (5-37); Bilirubin Total 0.5 mg/dL (0.0-1.0); Blood Urea Nitrogen 11 mg/dL (9-16); Calcium 9.2 mg/dL (8.4-10.2); Carbon Dioxide 27 mmol/L (22-29); Chloride 107 mmol/L (96-108); Estimated Glomerular Filt Rate > 60; Glucose Random 99 mg/dL (60-115); Potassium 4.3 mmol/L (3.3-5.1); Sodium 143 mmol/L (135-145); Total Protein 6.4 g/dL (6.5-8.0)
[2022-09-08 12:35] LABS: Vitamin D 25-OH Total 36.1 ng/mL (>30)
== END 2022-09-08 10:40 | disposition home or self-care (01) ==
LOC: HO.LAB 10:39
PROVIDERS: PCP Internal Medicine; Visit Provider Internal Medicine
DX: I25.10 Atherosclerotic heart disease of native coronary artery without angina pectoris (principal); I10 Essential (primary) hypertension; E55.9 Vitamin D deficiency, unspecified
CPT/HCPCS: 36415; 80053; 82306; 85025

== ENCOUNTER 2022-09-26 12:59 | Outpatient (REF) | payer OTHER, SELFPAY ==
--- NOTE | ~2022-09-26 | CT_ITS ---
EXAMINATION: CT CHEST SCREENING CLINICAL INFORMATION: Nicotine dependence. COMPARISON: None available. TECHNIQUE: Multidetector volumetric CT imaging of the chest is performed without contrast using low dose technique. Additional 2D coronal and sagittal reformatted images and axial 3D maximum intensity projection (MIP) images are generated on the CT workstation. This CT examination was performed using dose optimization techniques as appropriate, variously including the following: *Automated exposure control *Adjustment of mA and/or kV according to patient size (this includes techniques or standardized protocols for targeted exams where dose is matched to indication/reason for exam; i.e. extremities or head) *Use of iterative reconstruction technique DLP: 49 mGy-cm FINDINGS: LUNGS: The lungs are clear with no evidence of inflammation or nodules. MEDIASTINUM: The thyroid lobes are symmetric and normal. The central trachea and bronchi are widely patent. Heart size and the great vessels are normal caliber. There is no pericardial effusion. No abnormal-size mediastinal or hilar lymph nodes seen. CORONARY ARTERY CALCIFICATION: None visualized on this study. PLEURA: There is no pleural effusion. No pleural mass or thickening. AXILLA: No lymphadenopathy. UPPER ABDOMEN: Visualized liver, spleen, pancreas and bilateral adrenal glands are unremarkable. OSSEOUS STRUCTURES: There is moderate spondylosis mid dorsal spine. No aggressive lytic or sclerotic process seen. CT/CT lung screening IMPRESSION: No pulmonary nodule, mass or lymphadenopathy. ASSESSMENT: Lung-RADS category 1, benign. RECOMMENDATION: Low-dose annual CT chest.
== END 2022-09-26 13:00 | disposition home or self-care (01) ==
LOC: HO.CT 12:59
PROVIDERS: PCP Internal Medicine; Visit Provider Physician Assistant Medical
DX: Z12.2 Encounter for screening for malignant neoplasm of respiratory organs (principal); F17.210 Nicotine dependence, cigarettes, uncomplicated
CPT/HCPCS: 71271; G0296

== ENCOUNTER 2023-03-20 07:02 | Outpatient (REF) | payer MEDICARE, SELFPAY | END 2023-03-20 07:03 | disposition home or self-care (01) | LOC: HO.LAB 07:02 | PROVIDERS: PCP Internal Medicine; Visit Provider Internal Medicine | DX: Z13.89 Encounter for screening for other disorder (principal) ==

== ENCOUNTER 2023-04-27 14:26 | Outpatient (REF) | payer MEDICARE, OTHER, SELFPAY ==
--- NOTE | ~2023-04-27 | US_ITS ---
EXAMINATION: NONINVASIVE ASSESSMENT OF THE ARTERIES OF BOTH LOWER EXTREMITIES Harry Mcgee MD CLINICAL INFORMATION: PVD with leg pain. TECHNIQUE: Bilateral lower extremity duplex ultrasound was performed with velocity measurements and waveform analysis in the common femoral arteries, profunda femoris arteries, proximal mid and distal superficial femoral arteries, popliteal arteries and tibial vessels. This study was performed only at rest. COMPARISON: None available. FINDINGS: Velocities in cm/sec and phasicity as well as the presence of plaque are reported below. RIGHT LEG: Minimal plaque is seen and multiphasic flow is noted throughout. Common Femoral: 118 Profunda Femoris: 61 Proximal SFA: 104 Mid SFA: 96 Distal SFA: 83 Popliteal: 85 Posterior tibial: 92 Peroneal: 64 Anterior tibial: 52 Dorsalis pedis: 63 LEFT LEG: Minimal plaque is seen and multiphasic flow is noted throughout. Common Femoral: 79 Profunda Femoris: 50 Proximal SFA: 98 Mid SFA: 102 Distal SFA: 91 Popliteal: 74 Posterior tibial: 68 Peroneal: 49 Anterior tibial: 48 Dorsalis pedis: 42 US/US arterial duplex LE BI IMPRESSION: There is no evidence of any hemodynamically significant lower extremity arterial disease by pressure, waveform or duplex Doppler criteria at rest.
== END 2023-04-27 14:27 | disposition home or self-care (01) ==
LOC: HO.US 14:26
PROVIDERS: PCP Internal Medicine; Visit Provider Internal Medicine
DX: I73.9 Peripheral vascular disease, unspecified (principal); M79.604 Pain in right leg; M79.605 Pain in left leg
CPT/HCPCS: 93925

== ENCOUNTER 2023-05-11 07:25 | Outpatient (REF) | payer MEDICARE, SELFPAY ==
[2023-05-11 07:45] LABS: MANUAL DIFF FLAG NO
[2023-05-11 08:16] LABS: Appearance Urine Clear; Color Urine Yellow; Glucose Urine UA Negative (Negative); Leukocyte Esterase Urine Negative (Negative); Nitrite Urine Negative (Negative); PH 5.5 (5.0-9.0); UMIC TRIGGER UA YES; Urine Blood Moderate (2+) (Negative); Urine Ketones Negative (Negative); Urine Protein Negative (Neg-Trace)
[2023-05-11 08:19] LABS: Basophils Absolute Auto 0.1 X10*3/uL (0.0-0.2); Basophils Percent Auto 0.7 % (0-2); Eosinophils Absolute Auto 0.3 X10*3/uL (0.0-0.4); Eosinophils Percent Auto 3.1 % (0-4); Hematocrit 47.3 % (42.0-52.0); Hemoglobin 15.7 g/dl (14.0-18.0); Imm Gran Abs Auto 0.04 X10*3/uL (0.00-0.03); Imm Gran Pct Auto 0.5 % (0.0-0.4); Lymphocytes Absolute Auto 1.7 X10*3/uL (1.2-4.9); Lymphocytes Percent Auto 21.4 % (20-40); Mean Corpuscular HGB Conc 33.2 g/dl (31.0-36.0); Mean Corpuscular Hemoglobin 31.5 pg (27.0-33.0); Mean Corpuscular Volume 94.8 fL (80.0-98.0); Mean Platelet Volume 9.8 fL (9.4-12.4); Monocytes Absolute Auto 0.5 X10*3/uL (0.1-1.2); Monocytes Percent Auto 5.5 % (2-11); Neutrophils Absolute Auto 5.6 x10*3/uL (2.0-8.3); Neutrophils Percent Auto 68.8 % (45-73); Platelet Count 251 X10*3/uL (160-400); Red Blood Count 4.99 X10*6/uL (4.60-5.80); Red Cell Distribution Width 12.7 % (11.0-16.0); White Blood Count 8.1 X10*3/uL (4.8-10.8)
[2023-05-11 08:28] LABS: Bacteria Urine None Seen (None Seen); Hyaline Casts Urine 0-2 /LPF (0-2); Squamous Epithelial Cell Urine 0-2 /HPF (0-2); WBC Urine 0-5 /HPF (0-5)
[2023-05-11 08:50] LABS: Alanine Aminotransferase 19 U/L (0-40); Albumin Level 3.9 g/dL (3.5-5.0); Alkaline Phosphatase 91 U/L (39-117); Anion Gap 14 (12-20); Aspartate Amino Transferase 19 U/L (5-37); Bilirubin Total 0.4 mg/dL (0.0-1.0); Blood Urea Nitrogen 10 mg/dL (9-16); Calcium 9.1 mg/dL (8.4-10.2); Carbon Dioxide 27 mmol/L (22-29); Chloride 107 mmol/L (96-108); Cholesterol 147 mg/dL (<200); Estimated Glomerular Filt Rate > 60; Glucose Fasting 86 mg/dL (60-99); HDL Cholesterol 37 mg/dL (>40); LDL Cholesterol Calculated 73 mg/dL (<100); Sodium 144 mmol/L (135-145); Total Protein 6.7 g/dL (6.5-8.0); Triglycerides 189 mg/dL (<150)
== END 2023-05-11 07:26 | disposition home or self-care (01) ==
LOC: HO.LAB 07:25
PROVIDERS: PCP Internal Medicine; Visit Provider Internal Medicine
DX: I25.10 Atherosclerotic heart disease of native coronary artery without angina pectoris (principal); J44.9 Chronic obstructive pulmonary disease, unspecified; I10 Essential (primary) hypertension; E78.00 Pure hypercholesterolemia, unspecified
CPT/HCPCS: 36415; 80053; 80061; 81001; 85025

== ENCOUNTER 2023-08-06 09:10 | Outpatient (AMB) | payer MEDICARE, MEDICAID, SELFPAY ==
--- NOTE | 2023-08-06 09:14 | MHC.OFFVIS ---
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 It seems that he underwent cardiac catheterization around 2015 and possible PCI but details are not very clear. Then saw [facility] but nothing recently. Currently, he is describing some random chest pains on the right side of the chest but nothing clear-cut exertional angina. Chronic smoker and still smokes. Blood pressure also seems to be running on the higher side. He is here for cardiac evaluation. [facility] Medical History (Updated 08/06/23 @ 10:24 by Candelario Bal MD) Essential hypertension Atherosclerotic cardiovascular disease Liver cyst CAD (coronary artery disease) History of prostate cancer (~2015) History of [place] (myocardial infarction) (~2015) Nicotine dependence, cigarettes, uncomplicated Surgical History History of heart artery stent History of transurethral resection of prostate Family History (Updated 08/06/23 @ 09:57 by Candelario Bal MD) Father No problems noted. Mother No problems noted. Social History Alcohol intake: current Alcohol intake frequency: a few times a month Patient Tobacco Use Status: Current everyday Tobacco user Tobacco use type: Cigarette Cigarettes Per Day: 10 Years Smoked: (current smoker - onset 11yo, 1ppd x 51yrs, now 1/2ppd - 45+PYH) Review of Systems Const Denies weakness ENT Denies dizziness Card Reports chest pain, Denies syncope, Denies rapid heart rate, Denies pedal edema, Denies edema, Denies leg edema, Denies lightheadedness, Denies palpitations, Denies dyspnea, Denies dyspnea on exertion and Denies orthopnea Resp Denies cough, Denies dyspnea and Denies dyspnea on exertion GI Denies hematochezia and Denies change in stool character Musc Denies abnormal gait, Denies muscle cramps, Denies muscle weakness, Denies numbness, Denies radiating pain into limb and Denies tingling Neuro Denies abnormal gait, Denies dizziness, Denies syncope, Denies numbness, Denies tingling and Denies weakness Endo Denies palpitations Physical Exam Vital Signs: Last Vital Signs Pulse 62 08/06/23 09:16 BP 150/82 H 08/06/23 09:16 BMI result Body Mass Index 26.1 Const General: comfortable and no acute distress Orientation/consciousness: patient oriented x3 HEENT Other: Unremarkable Head: Yes normal to inspection Neck Neck: Yes normal visual inspection Chest Chest palpation & inspection: normal inspection of the chest Resp Auscultation: clear to auscultation bilaterally Cardio Palpation: normal PMI Heart sounds: S1 normal heart sound present, S2 normal heart sound present, no gallops, no murmurs and no rubs GI Palpation (GI): Soft to palpation Back/Spine/Pelvis Other: unremarkable Skin General skin exam: no rashes or lesions noted Neuro General: patient oriented x3 Extrem General: Yes normal to inspection Psych Mental Status: mental status grossly normal Office Procedures EKG Details: EKG with sinus rhythm at 62/Min; no significant ST-T changes; [place] [id number], Complete Assessment & Plan Assessment & Plan (1) Atherosclerotic cardiovascular disease: Code(s): I25.10 - Atherosclerotic heart disease of [place] coronary artery without angina pectoris (2) Precordial chest pain: Code(s): R07.2 - Precordial pain (3) Essential hypertension: Code(s): I10 - Essential (primary) hypertension Plan History of coronary disease and possible PCI 2015 but no details. Will need to get records of cardiac catheterization as well as any prior notes from [facility]. With regard to medications, not clear why he is on dual antiplatelet therapy. Once the above records reviewed, probably stop the Plavix and just keep him on aspirin. He is only on a small dose of beta-gregory and blood pressure is on the higher side. Again need to review records. We will start with an echocardiogram and exercise stress perfusion imaging study for further evaluation of underlying coronary disease/ischemia burden. Will follow-up in a few weeks' time. Orders: Orders CA echo transthoracic complete Today I25.10 - Atherosclerotic heart disease of [place] coronary artery without angina pectoris CA stress test Today I25.10 - Atherosclerotic heart disease of [place] coronary artery without angina pectoris, R07.2 - Precordial pain NM cardiolite stress test Today I25.10 - Atherosclerotic heart disease of [place] coronary artery without angina pectoris, R07.2 - Precordial pain Coding Level of Care Code New Pt Level 4 (93068) Diagnoses Atherosclerotic cardiovascular disease I25.10 Precordial chest pain R07.2 Essential hypertension I10 CPT Codes EKG - CPT: 57670-[id number], Complete ([id number])
[2023-08-06 09:16] VITALS: BP 150/82; PULSE 62; BMI 26.1
== END 2023-08-06 09:36 | disposition home or self-care (01) ==
PROVIDERS: PCP Internal Medicine; Visit Provider Internal Medicine
DX: I25.10 Atherosclerotic heart disease of native coronary artery without angina pectoris (principal); R07.2 Precordial pain; I10 Essential (primary) hypertension
CPT/HCPCS: 93010; 99204

== ENCOUNTER → 2023-08-06 09:10 | Outpatient (BNVA) | payer MEDICARE, MEDICAID, SELFPAY | PROVIDERS: PCP Internal Medicine; Visit Provider Internal Medicine | DX: I25.10 Atherosclerotic heart disease of native coronary artery without angina pectoris (principal); I10 Essential (primary) hypertension; R07.2 Precordial pain | CPT/HCPCS: 93005; 99202 ==

== ENCOUNTER 2023-09-09 16:45 | Inpatient (IN) | payer MEDICARE, SELFPAY ==
--- NOTE | ~2023-09-09 | CT_ITS ---
EXAMINATION: CT ABDOMEN AND PELVIS WITHOUT CONTRAST CLINICAL INFORMATION: Hematuria with question of renal calculus COMPARISON: Abdominal ultrasound 03/20/[address] abdomen pelvis 10/23/2020 TECHNIQUE: Multidetector volumetric imaging was performed from the superior aspect of the liver through the pubic symphysis. Sagittal and coronal reformatted images were obtained on the technologist's workstation. This CT examination was performed using dose optimization techniques as appropriate, variously including the following: *Automated exposure control *Adjustment of mA and/or kV according to patient size (this includes techniques or standardized protocols for targeted exams where dose is matched to indication/reason for exam; i.e. extremities or head) *Use of iterative reconstruction technique DLP: 525 mGy-cm FINDINGS: LUNG BASES: The visualized lung bases are unremarkable. LIVER, GALLBLADDER, AND BILIARY TREE: The liver is normal in size, shape, and attenuation. There is a 2.7 cm subcapsular mass in the liver which bulges the capsule and is not a simple cyst. This was similar in size on the 10/23/2020 study almost 3 years ago. No worrisome focal hepatic lesion or biliary ductal dilatation is present. The gallbladder is contracted. At the time of the prior study, a 8 mm nodular density at the fundus can be seen but a follow-up ultrasound on 03/20/2021 showed no abnormality in the gallbladder. PANCREAS: Unremarkable. SPLEEN: Unremarkable. ADRENAL GLANDS: Both adrenals are lobular with nodular densities, left greater than right. These measure fat density and are consistent with benign adenomas. Similar findings were present on the 10/23/2020 study. A worrisome adrenal mass is not seen. KIDNEYS AND URETERS: The right kidney is atrophic compared to the left with cortical thinning and areas of scarring. Right upper pole nonobstructing 3 mm calculus is present (6:61). Left kidney appears unremarkable. Calcification near the renal grace most likely is vascular BLADDER AND PROSTATE: Patient is status post prostatectomy. The bladder is only partially filled and contains a hyperdense 3.7 x 3.8 x 3.2. Cm dependent mass consistent with a large blood clot. Cystoscopy is recommended to exclude any underlying mass lesion. Bladder calculi seen. GASTROINTESTINAL TRACT: Extensive sigmoid diverticulosis is present without evidence of diverticulitis. The small and large bowel are otherwise unremarkable. The appendix is unremarkable. ABDOMINAL WALL: No significant hernia is appreciated. LYMPH NODES: No retroperitoneal lymphadenopathy. VASCULAR: Calcific atherosclerotic changes are present in the aorta and iliofemoral vessels. There is no evidence of an abdominal aortic aneurysm. PELVIC VISCERA: Status post prostatectomy as described above. An abnormal pelvic mass or free fluid is not seen. OSSEOUS STRUCTURES: Mild degenerative changes are present throughout the spine. CT/CT abdomen pelvis wo IV con IMPRESSION: 1. Small punctate nonobstructing right renal calculus.. 2. The bladder is only partially filled and contains a large blood clot. Cystoscopy is recommended to exclude any underlying mass lesion. 3. Non-water density liver mass is unchanged when compared with study from almost 3 years ago. On prior ultrasound this was shown to represent cysts, hence complicated. No further follow-up should be necessary. 4. Incidental note made of bilateral adrenal adenomatous enlargement begin (no follow-up needed), sigmoid diverticulosis and degenerative changes in the spine. Fleischner guidelines were followed.
[2023-09-09 17:00] VITALS: BP 158/84; PULSE 88; RESP 18; TEMP 37.1; O2SAT 96; BMI 26.3
--- NOTE | 2023-09-09 17:00 | ED_ITS ---
HPI - Male Genitourinary General Chief complaint: Urogenital-Male Stated complaint: hematuria Time Seen by Provider: 09/09/23 21:16 Source: patient Mode of arrival: ambulatory Limitations: no limitations History of Present Illness HPI Narrative: Patient is status post prostate surgery in 2016 was doing good for last 3 days noticed small amount of blood in the urine and today noticed blood clots and with intermittent urinary retention no fever no chills no nausea no vomiting no flank pain no recent prostate surgery or procedure no history of kidney stones Related Data Home Medications ?Medication ?Instructions ?Recorded ?Confirmed aspirin 81 mg tablet,delayed 81 mg PO DAILY 08/06/23 08/06/23 release (Adult Aspirin Regimen) atorvastatin 40 mg tablet 40 mg PO DAILY 08/06/23 08/06/23 cholecalciferol (vitamin D3) 25 25 mcg PO DAILY 08/06/23 08/06/23 mcg (1,000 unit) capsule clopidogrel 75 mg tablet 75 mg PO DAILY 08/06/23 08/06/23 metoprolol succinate 25 mg 12.5 mg PO DAILY 08/06/23 08/06/23 tablet,extended release 24 hr Allergies Allergy/AdvReac Type Severity Reaction Status Date / Time No Known Allergies Allergy Verified 09/09/23 17:04 [No Known Allergies*] Review of Systems 2 Review of Systems: Yes all other systems are reviewed and are negative [facility] Past Medical History Medical History Essential hypertension Atherosclerotic cardiovascular disease Liver cyst CAD (coronary artery disease) History of prostate cancer (~2015) History of [place] (myocardial infarction) (~2015) Nicotine dependence, cigarettes, uncomplicated Surgical History History of heart artery stent History of transurethral resection of prostate Family History Family History Father No problems noted. Mother No problems noted. Social History Social History Alcohol intake: current Alcohol intake frequency: a few times a month Patient Tobacco Use Status: Former Tobacco user Tobacco use type: Cigarette Cigarettes Per Day: 10 Years Smoked: (current smoker - onset 11yo, 1ppd x 51yrs, now 1/2ppd - 45+PYH) Smoked in Last 30 Days: Yes Advance Directives: No Advance Directives Information Provided: No Nutrition Risks: No Nutritional Risk Physical Exam 2 Vital Signs: Vital Signs: Last Vital Signs Temp 98.5 F 09/09/23 21:16 Pulse 74 09/09/23 21:16 Resp 18 09/09/23 21:16 BP 136/82 09/09/23 21:16 Pulse Ox 96 09/09/23 21:16 O2 Del Method Room Air 09/09/23 21:16 BMI result Body Mass Index 26.3 Appearance: Alert. Oriented X3. No acute distress. Eyes: PERRLA, No Nystagmus ENT: Pharynx normal. Oral Mucosa moist Neck: Normal inspection. Neck supple. CVS: Normal heart rate and rhythm. Pulses normal. Respiratory: No respiratory distress. Equal air entry bilateral, no wheezing/rales/rhonchi Abdomen: Soft , suprapubic discomfort++. Bowel sounds are present, no mass palpable, no CVA tenderness Skin: Skin warm and dry. Normal skin color. Normal skin turgor. Extremities: No lower extremity edema. No calf tenderness Neuro: Oriented X 3. No motor deficit. Course Course Course Narrative: RME:?63 yo male hx of HTN, [place], prostate cancer s/p prostatectomy in 2016 here w/ hematuria that began on Thursday, worsening today. endorses increased urinary frequency. current tobacco smoker, less than 1 pack a day. no hx of renal stones. hx of bladder leakage since 2016, wears adult diapers. denies abd pain, dysuria, flank pain, fever, n/v. labs, ua, ct scan ordered. Full HPI, ROS and PE to be performed by the primary ED provider. Medications Administered Discontinued Medications Generic Name Dose Route Start Last Admin Trade Name Freq PRN Reason Stop Dose Admin Sodium Chloride 1,000 mls @ 999 mls/hr 09/09/23 21:24 09/09/23 22:53 Ns IV 09/09/23 22:24 Infused .Q1H1M ONE Infusion Ceftriaxone Sodium 1 gm/ 50 mls @ 100 mls/hr 09/09/23 21:26 09/09/23 22:22 Sodium Chloride IV 09/09/23 21:55 Infused ONCE ONE Infusion Lidocaine HCl 10 ml 09/09/23 21:30 09/09/23 21:52 Lidocaine Hcl 2 % Urojet 10 Ml Jel.Pf.Rich TOPICAL 09/09/23 21:31 10 ml ONCE ONE Administration Medical Decision Making Medical Decision Making [facility] Narrative: Patient with gross hematuria UA showed nitrite positive but without any WBCs or bacteria in the urine likely hemorrhagic cystitis/bladder cancer CT scan showed possible bladder mass with blood will place [address] Bocanegra catheter bladder irrigation Three-week 22 Hebrew Bocanegra catheter was placed using the guidewire blood clots were removed by manual irrigation bladder irrigation started will admit patient for urologist evaluation start patient on Rocephin Differential Diagnosis Differential Diagnoses: The differential diagnosis associated with the presentation includes Hemorrhagic cystitis/bladder mass Admission/Observation Consideration of admission/observation: Escalation of care including admission/observation considered Consult Healthcare Provider Management of the patient was discussed with: Hospitalist Lab Data [facility] Lab Attestation statement: I reviewed the patient's lab results. 09/09/23 17:31 09/09/23 17:31 Labs: Lab Results 09/09/23 09/09/23 Range/Units 17:31 21:40 WBC 9.2 (4.8-10.8) X10*3/uL RBC 4.85 (4.60-5.80) X10*6/uL Hgb 15.4 (14.0-18.0) g/dl Hct 45.5 (42.0-52.0) % MCV 93.8 (80.0-98.0) fL MCH 31.8 (27.0-33.0) pg MCHC 33.8 (31.0-36.0) g/dl RDW 13.1 (11.0-16.0) % Plt Count 400 D (160-400) X10*3/uL MPV 9.3 L (9.4-12.4) fL Immature Gran % (Auto) 0.5 H (0.0-0.4) % Neut % (Auto) 63.6 (45-73) % Lymph % (Auto) 25.6 (20-40) % [place] % (Auto) 6.8 (2-11) % Eos % (Auto) 2.6 (0-4) % Baso % (Auto) 0.9 (0-2) % Lymph # (Auto) 2.4 (1.2-4.9) X10*3/uL [place] # (Auto) 0.6 (0.1-1.2) X10*3/uL Eos # (Auto) 0.2 (0.0-0.4) X10*3/uL Baso # (Auto) 0.1 (0.0-0.2) X10*3/uL Abs Immat Gran (auto) 0.05 H (0.00-0.03) X10*3/uL Absolute Neuts (auto) 5.9 (2.0-8.3) x10*3/uL Absolute Nucleated RBC 0.000 (0.0-0.012) X10*3/uL Nucleated RBC % (auto) 0.0 (0.0-0.2) /100WBC Sodium 144 (135-145) mmol/L Potassium 4.0 (3.3-5.1) mmol/L Chloride 107 (96-108) mmol/L Carbon Dioxide 26 (22-29) mmol/L Anion Gap 15 (12-20) BUN 9 (9-16) mg/dL Creatinine 0.85 (0.5-1.4) mg/dL Estim Creat Clear Calc 83.8 Estimated GFR > 60 Random Glucose 151 H (60-115) mg/dL Lactic Acid 2.3 H* (0.5-2.0) mmol/L Calcium 9.1 (8.4-10.2) mg/dL Magnesium 2.1 (1.6-2.6) mg/dL Total Bilirubin 0.3 (0.0-1.0) mg/dL AST 21 (5-37) U/L ALT 25 (0-40) U/L Alkaline Phosphatase 97 (39-117) U/L Total Protein 7.4 (6.5-8.0) g/dL Albumin 4.0 (3.5-5.0) g/dL Urine Color RED Urine Appearance Turbid Urine pH 7.5 (5.0-9.0) Ur Specific [place] 1.020 (1.005-1.025) Urine Protein 300 (3+) H (Neg-Trace) mg/dL Urine Glucose (UA) 250 H (Negative) mg/dL Urine Ketones 15 (Negative) mg/dL Urine Blood Large (3+) H (Negative) Urine Nitrite Positive H (Negative) Ur Leukocyte Esterase Moderate (2+) H (Negative) Urine RBC >20 H (0-2) /HPF Urine WBC 0-5 (0-5) /HPF Ur Squamous Epith Cells 0-2 (0-2) /HPF Urine Bacteria None Seen (None Seen) Hyaline Casts 0-2 (0-2) /LPF Discharge Plan Discharge Clinical Impression: Hematuria, Urinary tract infection Patient Disposition: Admitted As Inpatient
[2023-09-09 17:36] LABS: MANUAL DIFF FLAG NO
[2023-09-09 17:48] LABS: Appearance Urine Turbid; Glucose Urine UA 250 mg/dL (Negative); Leukocyte Esterase Urine Moderate (2+) (Negative); Nitrite Urine Positive (Negative); PH 7.5 (5.0-9.0); UMIC TRIGGER UACC YES; Urine Blood Large (3+) (Negative); Urine Ketones 15 mg/dL (Negative); Urine Protein 300 (3+) mg/dL (Neg-Trace)
[2023-09-09 17:49] LABS: Color Urine RED
[2023-09-09 17:51] LABS: Bacteria Urine None Seen (None Seen); Hyaline Casts Urine 0-2 /LPF (0-2); RBC Urine >20 /HPF (0-2); Squamous Epithelial Cell Urine 0-2 /HPF (0-2); UACC Culture Trigger YES; WBC Urine 0-5 /HPF (0-5)
[2023-09-09 17:52] LABS: Basophils Absolute Auto 0.1 X10*3/uL (0.0-0.2); Basophils Percent Auto 0.9 % (0-2); Eosinophils Absolute Auto 0.2 X10*3/uL (0.0-0.4); Eosinophils Percent Auto 2.6 % (0-4); Hematocrit 45.5 % (42.0-52.0); Hemoglobin 15.4 g/dl (14.0-18.0); Imm Gran Abs Auto 0.05 X10*3/uL (0.00-0.03); Imm Gran Pct Auto 0.5 % (0.0-0.4); Lymphocytes Absolute Auto 2.4 X10*3/uL (1.2-4.9); Lymphocytes Percent Auto 25.6 % (20-40); Mean Corpuscular HGB Conc 33.8 g/dl (31.0-36.0); Mean Corpuscular Hemoglobin 31.8 pg (27.0-33.0); Mean Corpuscular Volume 93.8 fL (80.0-98.0); Mean Platelet Volume 9.3 fL (9.4-12.4); Monocytes Absolute Auto 0.6 X10*3/uL (0.1-1.2); Monocytes Percent Auto 6.8 % (2-11); Neutrophils Absolute Auto 5.9 x10*3/uL (2.0-8.3); Neutrophils Percent Auto 63.6 % (45-73); Platelet Count 400 X10*3/uL (160-400); Red Blood Count 4.85 X10*6/uL (4.60-5.80); Red Cell Distribution Width 13.1 % (11.0-16.0); White Blood Count 9.2 X10*3/uL (4.8-10.8)
[2023-09-09 18:08] LABS: Alanine Aminotransferase 25 U/L (0-40); Alkaline Phosphatase 97 U/L (39-117); Anion Gap 15 (12-20); Aspartate Amino Transferase 21 U/L (5-37); Bilirubin Total 0.3 mg/dL (0.0-1.0); Blood Urea Nitrogen 9 mg/dL (9-16); Calcium 9.1 mg/dL (8.4-10.2); Carbon Dioxide 26 mmol/L (22-29); Chloride 107 mmol/L (96-108); Creatinine Clr Calc Pharmacy 83.8; Estimated Glomerular Filt Rate > 60; Glucose Random 151 mg/dL (60-115); Magnesium 2.1 mg/dL (1.6-2.6); Sodium 144 mmol/L (135-145); Total Protein 7.4 g/dL (6.5-8.0)
[2023-09-09 21:16] VITALS: BP 136/82; PULSE 74; RESP 18; TEMP 36.9; O2SAT 96
[2023-09-09] MEDS: 0.9 % Sodium Chloride 1,000 ML 999 ML IV (21:52)
[2023-09-09] MEDS: cefTRIAXone sodium 1 GM in 0.9 % Sodium Chloride 50 ML IV (21:52)
[2023-09-09] MEDS: Lidocaine HCl 2 % Urojet 10 ML JEL.PF.APP TOPICAL (21:52)
[2023-09-09 22:01] LABS: Lactic Acid 2.3 mmol/L (0.5-2.0)
[2023-09-09 23:44] LABS: Reflex Lactate? Lactic Acid Added
--- NOTE | 2023-09-10 00:21 | P.HPHOSP_ITS ---
History of Present Illness Date of Service: 09/10/23 Chief Complaint: Hematuria This is a 63-year-old male with pertinent history of CAD status post stent, tobacco use disorder, history of prostate cancer status post prostatectomy who presents to the emergency department for evaluation of blood in urine. Patient states he 1st noticed blood in urine 2 days prior to presentation. It initially stopped but returned on the day of presentation. It is painless and he is also passing blood clots. No abdominal discomfort. No fever, chills. He continues to smoke cigarettes. Patient is on aspirin and Plavix for CAD. Not on anticoagulation. No chest discomfort, palpitations, shortness of breath, changes in bowel habits. In the emergency department, imaging with large blood clot within the bladder. Patient was initiated on CBI Review of Systems 2 Constitutional: Constitutional: Reports no additional constitutional complaints Cardiovascular: Cardiovascular: Reports no additional cardiovascular complaints Respiratory: Respiratory: Reports no additional respiratory complaints Gastrointestinal: Gastrointestinal: Reports no additional gastrointestinal complaints Genitourinary: Genitourinary: Reports hematuria [facility] Medical History Essential hypertension Atherosclerotic cardiovascular disease Liver cyst CAD (coronary artery disease) History of prostate cancer (~2015) History of [place] (myocardial infarction) (~2015) Nicotine dependence, cigarettes, uncomplicated Family History Father No problems noted. Mother No problems noted. Surgical History History of heart artery stent History of transurethral resection of prostate Social History Alcohol intake: current Alcohol intake frequency: a few times a month Patient Tobacco Use Status: Current everyday Tobacco user Tobacco use type: Cigarette Cigarettes Per Day: 10 Years Smoked: (current smoker - onset 11yo, 1ppd x 51yrs, now 1/2ppd - 45+PYH) Smoked in Last 30 Days: Yes Advance Directives: No Advance Directives Information Provided: No Meds Allergies Allergy/AdvReac Type Severity Reaction Status Date / Time No Known Allergies Allergy Verified 09/09/23 17:04 [No Known Allergies*] Home Medications ?Medication ?Instructions ?Recorded ?Confirmed ?Last Taken ?Type aspirin 81 mg tablet,delayed 81 mg PO DAILY 08/06/23 08/06/23 Unknown History release (Adult Aspirin Regimen) atorvastatin 40 mg tablet 40 mg PO DAILY 08/06/23 08/06/23 Unknown History cholecalciferol (vitamin D3) 25 25 mcg PO DAILY 08/06/23 08/06/23 Unknown History mcg (1,000 unit) capsule clopidogrel 75 mg tablet 75 mg PO DAILY 08/06/23 08/06/23 Unknown History metoprolol succinate 25 mg 12.5 mg PO DAILY 08/06/23 08/06/23 Unknown History tablet,extended release 24 hr Physical Exam 2 Vital Signs and Narrative: Vital Signs: Last Vital Signs Temp 98.5 F 09/09/23 21:16 Pulse 74 09/09/23 21:16 Resp 18 09/09/23 21:16 BP 136/82 09/09/23 21:16 Pulse Ox 96 09/09/23 21:16 O2 Del Method Room Air 09/09/23 21:16 BMI result Body Mass Index 26.3 Middle-aged male lying in bed in no distress Neck supple, no JVD Regular rate and rhythm, S1-S2 heard Regular breath sounds bilaterally, no wheezing or crackles appreciated Abdomen soft nontender, no guarding, no rigidity, Bocanegra catheter in place Patient is awake, alert and oriented to self, place, time and person ; no focal motor deficit Psych: Normal mood No pedal edema Results Labs 09/09/23 17:31 09/09/23 17:31 Labs: Laboratory Results - last 24 hr 09/09/23 09/09/23 17:31 21:40 MCV 93.8 MCH 31.8 MCHC 33.8 RDW 13.1 Plt Count 400 D MPV 9.3 L Immature Gran % (Auto) 0.5 H Neut % (Auto) 63.6 Lymph % (Auto) 25.6 [place] % (Auto) 6.8 Eos % (Auto) 2.6 Baso % (Auto) 0.9 Lymph # (Auto) 2.4 [place] # (Auto) 0.6 Eos # (Auto) 0.2 Baso # (Auto) 0.1 Abs Immat Gran (auto) 0.05 H Absolute Neuts (auto) 5.9 Absolute Nucleated RBC 0.000 Nucleated RBC % (auto) 0.0 Anion Gap 15 Estim Creat Clear Calc 83.8 Estimated GFR > 60 Random Glucose 151 H Lactic Acid 2.3 H* Calcium 9.1 Magnesium 2.1 Total Bilirubin 0.3 AST 21 ALT 25 Alkaline Phosphatase 97 Total Protein 7.4 Albumin 4.0 Urine Color RED Urine Appearance Turbid Urine pH 7.5 Ur Specific [place] 1.020 Urine Protein 300 (3+) H Urine Glucose (UA) 250 H Urine Ketones 15 Urine Blood Large (3+) H Urine Nitrite Positive H Ur Leukocyte Esterase Moderate (2+) H Urine RBC >20 H Urine WBC 0-5 Ur Squamous Epith Cells 0-2 Urine Bacteria None Seen Hyaline Casts 0-2 Imaging Radiologist's Impressions: Impressions Abdomen/Pelvis CT 09/09/23 17:58 IMPRESSION: 1. Small punctate nonobstructing right renal calculus.. 2. The bladder is only partially filled and contains a large blood clot. Cystoscopy is recommended to exclude any underlying mass lesion. 3. Non-water density liver mass is unchanged when compared with study from almost 3 years ago. On prior ultrasound this was shown to represent cysts, hence complicated. No further follow-up should be necessary. 4. Incidental note made of bilateral adrenal adenomatous enlargement begin (no follow-up needed), sigmoid diverticulosis and degenerative changes in the spine. Fleischner guidelines were followed. Assessment and Plan (1) Hematuria: Status: Acute Plan This is a 63-year-old male with pertinent history of CAD status post stent, tobacco use disorder, history of prostate cancer status post prostatectomy who presents to the emergency department for evaluation of blood in urine. #. Hematuria, painless: Will admit patient and continue CBI. Consulted Urology, appreciate assistance. Hold aspirin and Plavix. Will keep patient NPO for possible urological procedure. Close monitoring of H&H #. Coronary artery disease status post stent: Hold antiplatelet agents in the setting of above. Continue beta-gregory and high-intensity statin #. Tobacco use disorder: Counseled regarding cessation. Refused nicotine patch Med rec pending DVT prophylaxis: Mechanical Full code Admit as inpatient and will require two night minimum hospital stay for evaluation of hematuria, close monitoring of H&H (as above), which is not possible in a lesser acute setting. Specialist consult pending Quality Stroke Does the patient have a stroke diagnosis?: No VTE Prior VTE?: No VTE Risk Level:: Medical - moderate - high VTE Device Contraindication: N/A - Device Ordered VTE Drug Contraindication: Treatment Not Indicated
[2023-09-10 00:48] LABS: ~Lactic Acid-LAB USE ONLY 1.9 mmol/L (0.5-2.0)
--- NOTE | 2023-09-10 02:09 | PC.NURSE ---
CBI inititated @ 7076. hematuria w/ clots noted. after 2 bags of irrigation fluid (5L) urine is now pinkish red w/ no clots noted. @ 0145 CBI slowed down. pt tolerating well. denies any discomfort.
[2023-09-10 02:12] VITALS: BP 150/93; PULSE 69; RESP 18; TEMP 36.8; O2SAT 97
[2023-09-10 05:08] LABS: MANUAL DIFF FLAG NO
[2023-09-10 05:12] LABS: Basophils Absolute Auto 0.1 X10*3/uL (0.0-0.2); Basophils Percent Auto 0.6 % (0-2); Eosinophils Absolute Auto 0.2 X10*3/uL (0.0-0.4); Eosinophils Percent Auto 2.7 % (0-4); Hematocrit 38.9 % (42.0-52.0); Hemoglobin 12.7 g/dl (14.0-18.0); Imm Gran Abs Auto 0.05 X10*3/uL (0.00-0.03); Imm Gran Pct Auto 0.6 % (0.0-0.4); Lymphocytes Absolute Auto 1.6 X10*3/uL (1.2-4.9); Lymphocytes Percent Auto 21.1 % (20-40); Mean Corpuscular HGB Conc 32.6 g/dl (31.0-36.0); Mean Corpuscular Volume 94.9 fL (80.0-98.0); Mean Platelet Volume 9.4 fL (9.4-12.4); Monocytes Absolute Auto 0.5 X10*3/uL (0.1-1.2); Monocytes Percent Auto 6.7 % (2-11); Neutrophils Absolute Auto 5.3 x10*3/uL (2.0-8.3); Neutrophils Percent Auto 68.3 % (45-73); Platelet Count 297 X10*3/uL (160-400); Red Cell Distribution Width 13.2 % (11.0-16.0); White Blood Count 7.8 X10*3/uL (4.8-10.8)
[2023-09-10 05:22] LABS: Anion Gap 10 (12-20); Blood Urea Nitrogen 8 mg/dL (9-16); Calcium 8.2 mg/dL (8.4-10.2); Carbon Dioxide 25 mmol/L (22-29); Chloride 113 mmol/L (96-108); Creatinine Clr Calc Pharmacy 91.3; Estimated Glomerular Filt Rate > 60; Glucose Random 90 mg/dL (60-115); Sodium 144 mmol/L (135-145)
[2023-09-10 06:20] VITALS: BP 126/69; PULSE 55; RESP 16; TEMP 36.6; O2SAT 95
[2023-09-10 08:11] VITALS: BP 127/63; PULSE 53; RESP 18; TEMP 36.7; O2SAT 95
--- NOTE | 2023-09-10 08:44 | PHA.MEDREC ---
Pharmacy Consult ? Medication Reconciliation Pharmacy has completed the medication reconciliation. Spoke to patient and confirmed medication list. Patient said he takes all of his medications daily at 1900.
[2023-09-10 08:47] VITALS: BMI 27.0
[2023-09-10 09:07] VITALS: BP 148/82; PULSE 60; RESP 17; TEMP 36.5; O2SAT 93
[2023-09-10] MEDS: 0.9 % Sodium Chloride Flush 3 ML SYRINGE IVFLUSH ×3 (09:14→23:49)
[2023-09-10 09:55] LABS: Hematocrit 39.7 % (42.0-52.0); Hemoglobin 13.1 g/dl (14.0-18.0)
--- NOTE | 2023-09-10 14:20 | P.EN_ITS ---
Event Note Date of Service: 09/10/23 Event Note: Patient seen and examined. Has hematuria-getting clearing most pinkish urine, no blood clots. Has CBI H&H:13.1 physical: similar as in h&p Assessment plan as inh&P moniter h/h, hold asa/plavix for now(patient has hx of cad& stent in 2016- currently denies any chest pain )until seen by urology. urology consult for hematuria Time Spent With Patient Time: Total time managing care of this patient today ____ minutes.
--- NOTE | 2023-09-10 14:24 | PM.UROCN ---
History of Present Illness Consult details Consult date: 09/10/23 Narrative: CC: Hematuria 63-year-old male Prior history of prostate procedure Presents through emergency room for hematuria Prior history of CAD with stent On aspirin and Plavix CT scan shows large blood clot within bladder Recommend conservative therapy. Hold Plavix until clear from hematuria for 48 hours. Follow outpatient cystoscopy Review of Systems Constitutional: Constitutional: Denies chills and Denies fever(s) Cardiovascular: Cardiovascular: Reports no additional cardiovascular complaints and Denies syncope Respiratory: Respiratory: Denies cough Gastrointestinal: Gastrointestinal: Denies abdominal pain and Denies heartburn Genitourinary: Genitourinary: Reports as per HPI and Denies change in libido Neurologic: Denies syncope Psychiatric: Psychiatric: Denies change in libido Endocrine: Endocrine: Denies change in libido [facility] Past Medical History Medical History Essential hypertension Atherosclerotic cardiovascular disease Liver cyst CAD (coronary artery disease) History of prostate cancer (~2015) History of SC (myocardial infarction) (~2015) Nicotine dependence, cigarettes, uncomplicated Family History Family History Father No problems noted. Mother No problems noted. Surgical History Surgical History History of heart artery stent History of transurethral resection of prostate Social History Social History Household Members: Spouse Do you presently have visiting nurse or other home services: No Alcohol intake: current Alcohol intake frequency: a few times a month Patient Tobacco Use Status: Current everyday Tobacco user Tobacco use type: Cigarette Cigarettes Per Day: 15 Years Smoked: (current smoker - onset 11yo, 1ppd x 51yrs, now 1/2ppd - 45+PYH) Meds Allergies Allergy/AdvReac Type Severity Reaction Status Date / Time No Known Allergies Allergy Verified 09/09/23 17:04 [No Known Allergies*] Active Medications: Current Medications Acetaminophen (Acetaminophen 325 Mg Tablet) 650 mg PO Q6H PRN PRN Reason: Pain, Mild (Pain Scale 1-3) Acetaminophen (Acetaminophen Supp 650 Mg Supp.Rect) 650 mg [place] Q6H PRN PRN Reason: Pain, Mild (Pain Scale 1-3) Melatonin (Melatonin 3 Mg Tablet) 6 mg PO BEDTIME PRN PRN Reason: Insomnia Ondansetron HCl (Ondansetron Hcl 4 Mg/2 Ml Vial) 4 mg IVPUSH Q8H PRN PRN Reason: Nausea and Vomiting Sodium Chloride (0.9 % Sodium Chloride Flush 3 Ml Syringe) [facility] Last Admin: 09/10/23 09:14 Dose: 3 ml Home Medications ?Medication ?Instructions ?Recorded ?Confirmed ?Last Taken ?Type aspirin 81 mg tablet,delayed 81 mg PO DAILY@189908/06/23 09/10/23 09/08/23 History release (Adult Aspirin Regimen) atorvastatin 40 mg tablet 40 mg PO DAILY@189908/06/23 09/10/23 09/08/23 History cholecalciferol (vitamin D3) 25 25 mcg PO DAILY@189908/06/23 09/10/23 09/08/23 History mcg (1,000 unit) capsule clopidogrel 75 mg tablet 75 mg PO DAILY@189908/06/23 09/10/23 09/08/23 History metoprolol succinate 25 mg 12.5 mg PO DAILY@189908/06/23 09/10/23 09/08/23 History tablet,extended release 24 hr Physical Exam Vital Signs: Vital Signs: Last Vital Signs Temp 97.7 F 09/10/23 09:07 Pulse 60 09/10/23 09:07 Resp 17 09/10/23 09:07 BP 148/82 H 09/10/23 09:07 Pulse Ox 93 09/10/23 09:07 O2 Del Method Room Air 09/10/23 09:07 BMI result Body Mass Index 27.0 Const: General: cooperative, healthy appearing, comfortable and no acute distress Orientation/consciousness: patient oriented x3 HEENT: Face and sinus: Yes normal facial exam Mouth: moist mucous membranes Neck: Neck: Yes normal visual inspection, Yes full ROM and Yes trachea midline Chest: Chest palpation & inspection: normal inspection of the chest Resp: Effort & Inspection: normal respiratory effort, able to speak in complete sentences and no respiratory distress GI: Inspection: Yes normal to inspection Back/Spine/Pelvis: Cervical Spine: normal cervical lordosis Thoracic/Lumbar Spine: thoracic and lumbar spine normal to inspection Skin: General skin exam: no rashes or lesions noted Neuro: General: patient oriented x3, gait normal, tone normal and moves all extremities Extrem: General: Yes normal to inspection and Yes capillary refill normal Results Labs 09/10/23 09:32 09/10/23 04:25 Labs: Abnormal lab results 09/09/23 09/09/23 09/10/23 Range/Units 17:31 21:40 04:25 RBC 4.10 L (4.60-5.80) X10*6/uL Hgb 12.7 L (14.0-18.0) g/dl Hct 38.9 L (42.0-52.0) % MPV 9.3 L (9.4-12.4) fL Immature Gran % (Auto) 0.5 H 0.6 H (0.0-0.4) % Abs Immat Gran (auto) 0.05 H 0.05 H (0.00-0.03) X10*3/uL Chloride 113 H (96-108) mmol/L Anion Gap 10 L (12-20) BUN 8 L (9-16) mg/dL Random Glucose 151 H (60-115) mg/dL Lactic Acid 2.3 H* (0.5-2.0) mmol/L Calcium 8.2 L D (8.4-10.2) mg/dL Urine Protein 300 (3+) H (Neg-Trace) mg/dL Urine Glucose (UA) 250 H (Negative) mg/dL Urine Blood Large (3+) H (Negative) Urine Nitrite Positive H (Negative) Ur Leukocyte Esterase Moderate (2+) H (Negative) Urine RBC >20 H (0-2) /HPF 09/10/23 Range/Units 09:32 RBC (4.60-5.80) X10*6/uL Hgb 13.1 L (14.0-18.0) g/dl Hct 39.7 L (42.0-52.0) % MPV (9.4-12.4) fL Immature Gran % (Auto) (0.0-0.4) % Abs Immat Gran (auto) (0.00-0.03) X10*3/uL Chloride (96-108) mmol/L Anion Gap (12-20) BUN (9-16) mg/dL Random Glucose (60-115) mg/dL Lactic Acid (0.5-2.0) mmol/L Calcium (8.4-10.2) mg/dL Urine Protein (Neg-Trace) mg/dL Urine Glucose (UA) (Negative) mg/dL Urine Blood (Negative) Urine Nitrite (Negative) Ur Leukocyte Esterase (Negative) Urine RBC (0-2) /HPF Short CBC 09/09/23 09/10/23 09/10/23 Range/Units 17:31 04:25 09:32 WBC 9.2 7.8 (4.8-10.8) X10*3/uL Hgb 15.4 12.7 L 13.1 L (14.0-18.0) g/dl Hct 45.5 38.9 L 39.7 L (42.0-52.0) % Plt Count 400 D 297 D (160-400) X10*3/uL BMP 09/09/23 09/10/23 17:31 04:25 Sodium 144 144 Potassium 4.0 4.0 Chloride 107 113 H Carbon Dioxide 26 25 BUN 9 8 L Creatinine 0.85 0.78 Calcium 9.1 8.2 L D Liver Function 09/09/23 Range/Units 17:31 Total Bilirubin 0.3 (0.0-1.0) mg/dL AST 21 (5-37) U/L ALT 25 (0-40) U/L Alkaline Phosphatase 97 (39-117) U/L Albumin 4.0 (3.5-5.0) g/dL Urine 09/09/23 Range/Units 17:31 Urine Color RED Urine Appearance Turbid Urine pH 7.5 (5.0-9.0) Ur Specific [place] 1.020 (1.005-1.025) Urine Protein 300 (3+) H (Neg-Trace) mg/dL Urine Glucose (UA) 250 H (Negative) mg/dL All other labs normal. Assessment and Plan (1) Gross hematuria: Status: Acute Plan Hold Plavix and aspirin Outpatient follow-up cystoscopy Procedures Date of Service Date of Service: 09/10/23
[2023-09-10 15:01] VITALS: BP 136/79; PULSE 62; RESP 16; TEMP 36.4; O2SAT 96
--- NOTE | 2023-09-10 16:25 | MHC.CM.PN ---
PT REPORTS HE LIVES WITH HIS AND IS INDEPENDENT WITH CARE HE HAS NO DME AND NO SERVICES HE REPORTS HIS IS HIS HCP, COPY REQUESTED PCP: SHILOH CESAR IMM DELIVERED DCP: HOME NO SERVICES VIA PRIVATE TRANSPORT
[2023-09-10 19:27] VITALS: BP 119/65; PULSE 66; RESP 20; TEMP 36; O2SAT 92
[2023-09-10] MEDS: Metoprolol Succinate ER 12.5 MG HALFTAB.ER.24H PO (19:44)
[2023-09-10] MEDS: Cholecalciferol (Vitamin D3) 25 MCG TABLET PO (19:44)
[2023-09-10] MEDS: Atorvastatin Calcium 40 MG TABLET PO (19:44)
--- NOTE | 2023-09-10 22:56 | PC.NURSE ---
patient developed pain,CBI draining but leakage noted around catheter,hand irrigated marcial muliple times ,small clots obtained,patient comfortable at present,CBI draining clear ,CBI wide open,will monitor
--- NOTE | 2023-09-11 02:56 | PC.NURSE ---
Around 02:30AM pt. noticed that he was feeling wet. Some leaking noted at marcial site. Hand irrigated and multiple small clots came out. CBI running wide open with red/punch colored urine draining. Pt. has no complaints of pain. He did however ask for his sequentials to be removed as he felt that it was keeping him awake. Educated on reason for sequentials. Pt. understands. Will continue to monitor.
[2023-09-11 03:07] VITALS: BP 132/72; PULSE 60; RESP 16; TEMP 36.7; O2SAT 93
[2023-09-11] MEDS: Acetaminophen 325 MG TABLET 650 MG PO (03:48)
[2023-09-11 07:41] VITALS: BP 139/79; PULSE 68; RESP 12; TEMP 36.3; O2SAT 94
[2023-09-11] MEDS: 0.9 % Sodium Chloride Flush 3 ML SYRINGE IVFLUSH ×2 (10:38→16:07)
--- NOTE | 2023-09-11 11:30 | HO.PM.IMPN ---
Subjective Subjective Date of Service: 09/11/23 Interval History: Intermittently having urinary clots that are then irrigated out. When this happens, he has bladder pain. Tolerating diet. No chest pain. Review of Systems Review of Systems: Yes all other systems are reviewed and are negative Physical Exam Vital Signs: Vital Signs: Last Vital Signs Temp 97.4 F 09/11/23 07:41 Pulse 68 09/11/23 07:41 Resp 12 09/11/23 07:41 BP 139/79 09/11/23 07:41 Pulse Ox 94 09/11/23 07:41 O2 Del Method Room Air 09/11/23 07:41 BMI result Body Mass Index 27.0 Gen: in no acute distress HEENT: sclera anicteric, moist mucus membranes Neck: supple Lungs: clear to auscultation bilaterally Heart: regular rate and rhythm, no murmurs Abd: soft, non-tender, non-distended : CBI currently clear Ext: no edema Skin: warm/well-perfused Neuro: alert and oriented x3, no focal findings Psych: appropriate affect Objective Data Active Medications Acetaminophen (Acetaminophen 325 Mg Tablet) 650 mg PO Q6H PRN PRN Reason: Pain, Mild (Pain Scale 1-3) Last Admin: 09/11/23 03:48 Dose: 650 mg Documented By: ANTOIC Acetaminophen (Acetaminophen Supp 650 Mg Supp.Rect) 650 mg [place] Q6H PRN PRN Reason: Pain, Mild (Pain Scale 1-3) Atorvastatin Calcium (Atorvastatin Calcium 40 Mg Tablet) 40 mg PO DAILY@1900 [facility] Last Admin: 09/10/23 19:44 Dose: 40 mg Documented By: EDISON Melatonin (Melatonin 3 Mg Tablet) 6 mg PO BEDTIME PRN PRN Reason: Insomnia Metoprolol Succinate (Metoprolol Succinate Er 12.5 Mg Halftab.Er.24h) 12.5 mg PO DAILY@1900 [facility]; Protocol Last Admin: 09/10/23 19:44 Dose: 12.5 mg Documented By: EDISON Ondansetron HCl (Ondansetron Hcl 4 Mg/2 Ml Vial) 4 mg IVPUSH Q8H PRN PRN Reason: Nausea and Vomiting Sodium Chloride (0.9 % Sodium Chloride Flush 3 Ml Syringe) 3 ml IVFLUSH [facility] Last Admin: 09/11/23 10:38 Dose: 3 ml Documented By: MIRELLA Vitamin D (Cholecalciferol (Vitamin D3) 25 Mcg Tablet) 25 mcg PO DAILY@1900 [facility] Last Admin: 09/10/23 19:44 Dose: 25 mcg Documented By: EDISON Labs 09/10/23 09:32 09/10/23 04:25 Microbiology Microbiology Results: Microbiology 09/09/23 17:51 Urine Culture - Final Urine clean catch - Urine conti top 09/09/23 21:40 Blood Culture - Preliminary Blood - Venous No growth after 24 hours. 09/09/23 21:30 Blood Culture - Preliminary Blood - Venous No growth after 24 hours. Assessment and Plan (1) Gross hematuria: Status: Acute Plan d2 63yo M with CAD on DAPT s/p PCI, tobacco abuse disorder, hx prostate CA s/p prostatectomy presenting with painless hematuria hematuria - continue CBI, hold DAPT, Urology consulted and recommends outpt cystoscopy CAD - hold DAPT until OK with Urology; continue atorvastatin + metoprolol succinate tobacco abuse - refused NRT; counseling VTE ppx - SCDs dispo - eventually home In my clinical judgment, the patient requires continued inpatient hospitalization for the following reasons: CBI Total time managing care of this patient today: 35 minutes. Quality Stroke Does the patient have a stroke diagnosis?: No VTE Prior VTE?: No VTE Risk Level:: Medical - moderate - high VTE Device Contraindication: N/A - Device Ordered VTE Drug Contraindication: Treatment Not Indicated
[2023-09-11 15:12] VITALS: BP 122/62; PULSE 59; RESP 12; TEMP 36.4; O2SAT 95
--- NOTE | 2023-09-11 15:54 | PC.NURSE ---
Patient reporting leaking around catheter and burning and pain. Cath manually irrigated for large amount of clots. CBI running clear through day. @2pm reporting a little leaking and burning again. Manually irrigated for specks of clots and reattached to CBI. Very pale pink urine returned.
--- NOTE | 2023-09-11 16:00 | MHC.CM.NN ---
pt getting cbi possible dc home sat with no servies
[2023-09-11] MEDS: Atorvastatin Calcium 40 MG TABLET PO (18:24)
[2023-09-11] MEDS: Cholecalciferol (Vitamin D3) 25 MCG TABLET PO (18:24)
[2023-09-11] MEDS: Metoprolol Succinate ER 12.5 MG HALFTAB.ER.24H PO (18:24)
[2023-09-11 19:09] VITALS: BP 108/68; PULSE 63; RESP 17; TEMP 36.7; O2SAT 94
[2023-09-12] MEDS: 0.9 % Sodium Chloride Flush 3 ML SYRINGE IVFLUSH ×3 (01:41→19:42)
[2023-09-12 03:31] VITALS: BP 101/56; PULSE 54; RESP 17; TEMP 36.4; O2SAT 94
[2023-09-12 07:13] VITALS: BP 111/56; PULSE 52; RESP 14; TEMP 36.6; O2SAT 93
--- NOTE | 2023-09-12 11:45 | HO.PM.IMPN ---
Subjective Subjective Date of Service: 09/12/23 Interval History: No acute issues overnight. Continues with CBI ... urine clear Review of Systems Denies chest pain Denies shortness of breath Denies nausea vomiting diarrhea Denies fever chills Physical Exam Vital Signs: Vital Signs: Last Vital Signs Temp 97.8 F 09/12/23 07:13 Pulse 52 09/12/23 07:13 Resp 14 09/12/23 07:13 BP 111/56 L 09/12/23 07:13 Pulse Ox 93 09/12/23 07:13 O2 Del Method Room Air 09/12/23 07:13 BMI result Body Mass Index 27.0 Const: Other: Awake alert oriented x3 no acute distress Resp: Other: Clear to auscultation bilaterally no rales rhonchi or wheezes Cardio: Other: No S4; positive S1-S2; no S3 murmurs rubs or gallops GI: Other: Soft nontender nondistended normoactive bowel sounds : Other: 3 way catheter in place Extrem: Other: No edema bilaterally Objective Data Active Medications Acetaminophen (Acetaminophen 325 Mg Tablet) 650 mg PO Q6H PRN PRN Reason: Pain, Mild (Pain Scale 1-3) Last Admin: 09/11/23 03:48 Dose: 650 mg Documented By: ANTOIC Acetaminophen (Acetaminophen Supp 650 Mg Supp.Rect) 650 mg [place] Q6H PRN PRN Reason: Pain, Mild (Pain Scale 1-3) Atorvastatin Calcium (Atorvastatin Calcium 40 Mg Tablet) 40 mg PO DAILY@1900 [facility] Last Admin: 09/11/23 18:24 Dose: 40 mg Documented By: HOMER Melatonin (Melatonin 3 Mg Tablet) 6 mg PO BEDTIME PRN PRN Reason: Insomnia Metoprolol Succinate (Metoprolol Succinate Er 12.5 Mg Halftab.Er.24h) 12.5 mg PO DAILY@1900 [facility]; Protocol Last Admin: 09/11/23 18:24 Dose: 12.5 mg Documented By: HOMER Ondansetron HCl (Ondansetron Hcl 4 Mg/2 Ml Vial) 4 mg IVPUSH Q8H PRN PRN Reason: Nausea and Vomiting Sodium Chloride (0.9 % Sodium Chloride Flush 3 Ml Syringe) [facility] Last Admin: 09/12/23 09:09 Dose: Not Given Documented By: BRANDON Non-Admin Reason: Previously Administered Vitamin D (Cholecalciferol (Vitamin D3) 25 Mcg Tablet) 25 mcg PO DAILY@1900 [facility] Last Admin: 09/11/23 18:24 Dose: 25 mcg Documented By: HOMER Labs 09/10/23 09:32 09/10/23 04:25 Microbiology Microbiology Results: Microbiology 09/09/23 21:40 Blood Culture - Preliminary Blood - Venous No growth after 48 hours. 09/09/23 21:30 Blood Culture - Preliminary Blood - Venous No growth after 48 hours. 09/09/23 17:51 Urine Culture - Final Urine clean catch - Urine conti top Assessment and Plan (1) Gross hematuria: Status: Acute (2) CAD (coronary artery disease): Status: Acute Plan 63yo M with CAD on DAPT s/p PCI, tobacco abuse disorder, hx prostate CA s/p prostatectomy presenting with painless hematuria. Has responded well to continuous bladder irrigation. Urine now clear 1.Hematuria -CBI now clear. -DC Bocanegra and follow clinically -restart DA PT as outpatient 2.CAD -hold DAPT until OK with Urology -continue statin/beta-gregory 3.Tobacco abuse - refused NRT; counseling SCDs Full code Patient requires ongoing hospitalization to observe for [address] catheter removed to assess that hematuria has resolved. High risk for outpatient failure Quality Stroke Does the patient have a stroke diagnosis?: No VTE Prior VTE?: No VTE Risk Level:: Medical - moderate - high VTE Device Contraindication: N/A - Device Ordered VTE Drug Contraindication: Treatment Not Indicated
--- NOTE | 2023-09-12 12:45 | PC.NURSE ---
3-way indwelling urinary catheter used for CBI removed at 1220. Device intact. Patient tolerated well with moderate amount of discomfort upon removal. Per protocol- patient due to void by 1820. Patient voided into toilet within 5 minutes of removal. Unable to measure first void. Patient given urinal for next void. Patient verbalizes understanding.
[2023-09-12 16:00] VITALS: BP 110/60; PULSE 62; RESP 18; TEMP 36.7; O2SAT 96
[2023-09-12] MEDS: Cholecalciferol (Vitamin D3) 25 MCG TABLET PO (18:22)
[2023-09-12] MEDS: Atorvastatin Calcium 40 MG TABLET PO (18:23)
[2023-09-12 19:31] VITALS: BP 124/58; PULSE 68; RESP 20; TEMP 36.8; O2SAT 96
[2023-09-12] MEDS: Metoprolol Succinate ER 12.5 MG HALFTAB.ER.24H PO (19:41)
[2023-09-13 03:24] VITALS: BP 108/60; PULSE 63; RESP 16; TEMP 36.1; O2SAT 94
[2023-09-13 06:04] LABS: MANUAL DIFF FLAG NO
[2023-09-13 06:16] LABS: Basophils Absolute Auto 0.1 X10*3/uL (0.0-0.2); Basophils Percent Auto 0.7 % (0-2); Eosinophils Absolute Auto 0.2 X10*3/uL (0.0-0.4); Eosinophils Percent Auto 2.3 % (0-4); Hematocrit 37.4 % (42.0-52.0); Hemoglobin 12.6 g/dl (14.0-18.0); Imm Gran Abs Auto 0.01 X10*3/uL (0.00-0.03); Imm Gran Pct Auto 0.1 % (0.0-0.4); Lymphocytes Absolute Auto 1.5 X10*3/uL (1.2-4.9); Lymphocytes Percent Auto 21.8 % (20-40); Mean Corpuscular HGB Conc 33.7 g/dl (31.0-36.0); Mean Corpuscular Hemoglobin 31.8 pg (27.0-33.0); Mean Corpuscular Volume 94.4 fL (80.0-98.0); Mean Platelet Volume 9.8 fL (9.4-12.4); Monocytes Absolute Auto 0.5 X10*3/uL (0.1-1.2); Monocytes Percent Auto 7.6 % (2-11); Neutrophils Absolute Auto 4.7 x10*3/uL (2.0-8.3); Neutrophils Percent Auto 67.5 % (45-73); Platelet Count 251 X10*3/uL (160-400); Red Blood Count 3.96 X10*6/uL (4.60-5.80)
[2023-09-13 06:46] LABS: Alanine Aminotransferase 16 U/L (0-40); Albumin Level 3.4 g/dL (3.5-5.0); Alkaline Phosphatase 72 U/L (39-117); Anion Gap 11 (12-20); Aspartate Amino Transferase 16 U/L (5-37); Bilirubin Total 0.5 mg/dL (0.0-1.0); Blood Urea Nitrogen 12 mg/dL (9-16); Calcium 8.7 mg/dL (8.4-10.2); Carbon Dioxide 27 mmol/L (22-29); Chloride 108 mmol/L (96-108); Creatinine Clr Calc Pharmacy 84.8; Estimated Glomerular Filt Rate > 60; Glucose Fasting 84 mg/dL (60-99); Potassium 3.9 mmol/L (3.3-5.1); Sodium 142 mmol/L (135-145); Total Protein 5.8 g/dL (6.5-8.0)
[2023-09-13 07:28] VITALS: BP 108/56; PULSE 62; RESP 20; TEMP 36.4; O2SAT 95
--- NOTE | 2023-09-13 09:56 | PM.DS ---
DS: Providers Provider Date of Service: 09/13/23 Date of admission: 09/10/23 00:20 Date of discharge: 09/13/23 Primary care physician: Simon Varela MD Consults: 09/10/23 00:20 Consult to Urology Routine Consulting Provider: David Cornell Reason for consultation: hematuria DS: Diagnosis Discharge Diagnosis (1) Gross hematuria: Status: Acute (2) CAD (coronary artery disease): Status: Acute DS: Summary Hospital Course Hospital Course: 63-year-old male with pertinent history of CAD status post stent, tobacco use disorder, history of prostate cancer status post prostatectomy who presents to the emergency department for evaluation of blood in urine. Patient states he 1st noticed blood in urine 2 days prior to presentation. It initially stopped but returned on the day of presentation. It is painless and he is also passing blood clots. No abdominal discomfort. No fever, chills. He continues to smoke cigarettes. Patient is on aspirin and Plavix for CAD. Not on anticoagulation. No chest discomfort, palpitations, shortness of breath, changes in bowel habits. Initial CT of abdomen pelvis done in the emergency room demonstrated partially filled bladder with large blood clot. Patient was seen in consultation by Urology who recommended implementation of a 3 way Bocanegra with continuous bladder irrigation. Over the next 72 hours his urine cleared with irrigation. Urine culture has remained negative as well as blood cultures. On the day before discharge Bocanegra was removed and patient has been able to void without signs of hematuria over the last 24 hours. At this point in time, he is medically acceptable to be discharged and resume his Plavix and aspirin and all meds taken prior to hospital. He states he has a follow up with Dr. Varela in the near future and will keep it. Dr. Llamas's office will call and arrange outpatient cystoscopy Time Attestation Discharge Coordination Time (in mins): 35 Quality: Safe Use of Opioids Does Pt have an Active Cancer Diagnosis on the Problem List?: No Quality: Stroke Does the patient have a stroke diagnosis?: No Physical Exam Vital Signs: Vital Signs: Last Vital Signs Temp 97.6 F 09/13/23 07:28 Pulse 62 09/13/23 07:28 Resp 20 09/13/23 07:28 BP 108/56 L 09/13/23 07:28 Pulse Ox 95 09/13/23 07:28 O2 Del Method Room Air 09/13/23 07:28 BMI result Body Mass Index 27.0 Const: Other: Awake alert oriented x3 no acute distress Resp: Other: Clear to auscultation bilaterally no rales rhonchi or wheezes Cardio: Other: No S4; positive S1-S2; no S3 murmurs rubs or gallops GI: Other: Soft nontender nondistended normoactive bowel sounds : Other: 3 way catheter in place Extrem: Other: No edema bilaterally DS: Data Data Completed and Pending Labs on day of discharge: Laboratory Results - last 24 hr 09/13/23 05:28 WBC 7.0 RBC 3.96 L Hgb 12.6 L Hct 37.4 L MCV 94.4 MCH 31.8 MCHC 33.7 RDW 13.0 Plt Count 251 MPV 9.8 Immature Gran % (Auto) 0.1 Neut % (Auto) 67.5 Lymph % (Auto) 21.8 [place] % (Auto) 7.6 Eos % (Auto) 2.3 Baso % (Auto) 0.7 Lymph # (Auto) 1.5 [place] # (Auto) 0.5 Eos # (Auto) 0.2 Baso # (Auto) 0.1 Abs Immat Gran (auto) 0.01 Absolute Neuts (auto) 4.7 Absolute Nucleated RBC 0.000 Nucleated RBC % (auto) 0.0 Sodium 142 Potassium 3.9 Chloride 108 Carbon Dioxide 27 Anion Gap 11 L BUN 12 Creatinine 0.84 Estim Creat Clear Calc 84.8 Estimated GFR > 60 Fasting Glucose 84 Calcium 8.7 D Total Bilirubin 0.5 AST 16 ALT 16 Alkaline Phosphatase 72 Total Protein 5.8 L Albumin 3.4 L Preliminary micro results at discharge 09/09/23 21:40 Blood Culture - Preliminary Blood - Venous No growth after 48 hours. 09/09/23 21:30 Blood Culture - Preliminary Blood - Venous No growth after 48 hours. Discharge Plan Discharge Anticipated Discharge Date/Time: 09/13/23 09:54 Patient Disposition: Home, Self-Care Discharge Diagnosis: Gross hematuria Referrals: Simon Varela MD [Primary Care Provider] - 1 Week Discharge Medications: Continued metoprolol succinate 25 mg tablet extended release 24 hr 12.5 mg PO DAILY@1900 clopidogrel 75 mg tablet 75 mg PO DAILY@1900 atorvastatin 40 mg tablet 40 mg PO DAILY@1900 aspirin [Adult Aspirin Regimen] 81 mg tablet,delayed release (DR/EC) 81 mg PO DAILY@1900 cholecalciferol (vitamin D3) 25 mcg (1,000 unit) capsule 25 mcg PO DAILY@1900 Discharge Orders: Discharge Order (Routine); Ordered 09/13/23 Ordered By: Ozzy Bonilla Diet: Advance to usual diet Activity on Discharge: As tolerated Stand Alone Forms: Patient Portal Discharge page Print Language: [place] Care Plan Goals: Resume all medicines as taken before hospitalization Health Concerns: Dr. Llamas (urologist)'s office will call you with an appointment. You will need a cystoscopy as an outpatient Plan of Treatment: Follow-up with Dr. Varela as scheduled Assessment: See discharge summary
--- NOTE | 2023-09-13 11:06 | MHC.CM.PN ---
PT WILL DC HOME TODAY WITH NO SERVICES VIA PRIVATE TRANSPORT
== END 2023-09-13 10:40 | disposition home or self-care (01) | DRG 696 ==
LOC: HO.ED 21:50 → HO.EDOVER 09-10 00:24 → HO.S3 09-10 07:31
PROVIDERS: Internal Medicine; Physician Assistant Medical; Admitting Provider Student in an Organized Health Care Education/Training Program; Emergency Provider Internal Medicine; PCP Internal Medicine; Visit Provider Hospitalist
DX: R31.0 Gross hematuria (principal); I25.10 Atherosclerotic heart disease of native coronary artery without angina pectoris; F17.210 Nicotine dependence, cigarettes, uncomplicated; Z71.6 Tobacco abuse counseling; Z95.5 Presence of coronary angioplasty implant and graft; Z85.46 Personal history of malignant neoplasm of prostate; Z90.79 Acquired absence of other genital organ(s); Z79.02 Long term (current) use of antithrombotics/antiplatelets; Z79.82 Long term (current) use of aspirin; Z79.899 Other long term (current) drug therapy
CPT/HCPCS: 36415; 74176; 80048; 80053; 81001; 83605; 83735; 85014; 85018; 85025; 87040; 87086; 99285; C1758; J0696

== ENCOUNTER → 2023-09-10 00:20 | Outpatient (BNV) | payer MEDICARE, SELFPAY | PROVIDERS: Admitting Provider Student in an Organized Health Care Education/Training Program; Emergency Provider Internal Medicine; PCP Internal Medicine; Visit Provider Urology | DX: R31.0 Gross hematuria (principal) | CPT/HCPCS: 99222 ==

== ENCOUNTER → 2023-09-10 00:20 | Outpatient (BNV) | payer MEDICARE, SELFPAY | PROVIDERS: Admitting Provider Student in an Organized Health Care Education/Training Program; Emergency Provider Internal Medicine; PCP Internal Medicine; Visit Provider Student in an Organized Health Care Education/Training Program | DX: R31.0 Gross hematuria (principal); I25.10 Atherosclerotic heart disease of native coronary artery without angina pectoris | CPT/HCPCS: 99222; 99232; 99233; 99239; 99499 ==

== ENCOUNTER 2023-09-23 10:33 | Outpatient (AMB) | payer MEDICARE, SELFPAY ==
--- NOTE | 2023-09-23 10:47 | A.OFFVIS_ITS ---
Intake Visit Reasons: cysto Intake Note: Patient is Present for Cystoscopy Urology Med: Antibiotic Allergy: None Blood Thinner: Aspirin, Clopidogrel URO- G Disposable Cystoscope lot: [id number] exp:04/09/2026 Allergies No Known Allergies [No Known Allergies*] Allergy (Verified 09/23/23 10:52) HPI Comments Details: Prieto is a pleasant male. He is a patient of Dr. Varela. He is seen for the following urologic conditions - gross hematuria - radiation cystitis - prostate cancer Here for office cystoscopy Cystoscopy shows radiation cystitis 12 month follow-up PSA Gross hematuria On aspirin and clopidogrel Episode of gross hematuria in hospital CT scan with large blood clot versus mass in bladder Prostate cancer Robotic prostatectomy 2016 [facility] Urology Salvage radiation [facility] Medical History Essential hypertension Atherosclerotic cardiovascular disease Liver cyst CAD (coronary artery disease) History of prostate cancer (~2015) History of [place] (myocardial infarction) (~2015) Nicotine dependence, cigarettes, uncomplicated Surgical History History of heart artery stent History of transurethral resection of prostate Family History Father No problems noted. Mother No problems noted. Social History Household Members: Spouse Do you presently have visiting nurse or other home services: No Alcohol intake: current Alcohol intake frequency: a few times a month Patient Tobacco Use Status: Current everyday Tobacco user Tobacco use type: Cigarette Cigarettes Per Day: 15 Years Smoked: (current smoker - onset 11yo, 1ppd x 51yrs, now 1/2ppd - 45+PYH) service: Yes Review of Systems Const Denies chills and Denies fever(s) Card Reports no additional complaints and Denies syncope Resp Denies cough GI Denies abdominal pain and Denies heartburn Reports as per HPI and Denies change in libido Neuro Denies syncope Psych Denies change in libido Endo Denies change in libido Physical Exam Const General: cooperative, healthy appearing, comfortable and no acute distress Orientation/consciousness: patient oriented x3 HEENT Face and sinus: Yes normal facial exam Mouth: moist mucous membranes Neck Neck: Yes normal visual inspection, Yes full ROM and Yes trachea midline Chest Chest palpation & inspection: normal inspection of the chest Resp Effort & Inspection: normal respiratory effort, able to speak in complete sentences and no respiratory distress GI Inspection: Yes normal to inspection Back/Spine/Pelvis Cervical Spine: normal cervical lordosis Thoracic/Lumbar Spine: thoracic and lumbar spine normal to inspection Skin General skin exam: no rashes or lesions noted Neuro General: patient oriented x3, gait normal, tone normal and moves all extremities Extrem General: Yes normal to inspection and Yes capillary refill normal Office Procedures Cystoscopy Consent Discussed risk and benefit or proposed procedure with the patient. Information consent for procedure given to the patient. Discussed technical aspects, risks, benefits and alternatives in full. Addressed all of the patient's questions and concerns regarding the procedure. The patient demonstrated knowledge and understanding. They wish to proceed with this procedure. Preparation The patient was prepped in the usual manner. A ferryboat operator helper was present and in the room. Genitalia was prepped with betadine solution in a sterile manner. Lidocaine Jelly 2% was placed into the urethra and 16Fr flexible Olympus cystoscope was inserted into the meatus after adequate lubrication. Procedure Cystoscopy performed using a disposable Urovue digital 16 Barbadian cystoscope. Meatus circumcised Urethra anterior and posterior urethra normal Prostatic Urethra absent prostate Bladder examination with retroflexion of cystoscope Bladder Orifices normal shape and position Bladder Capacity normal Trabeculations grade 2 Cellule Formation yes Diverticulum Formation - Mucosal Erythema radiation cystitis Bladder Tumor - 69720-[id number] DISPOSABLE SCOPE URO-G FLEXIBLE SCOPE Procedure code (CPT) selection complete Office Meds lidocaine HCl 2 % mucosal jelly in applicator Performing Provider: David Cornell MD [facility] Administered by: Karis Diehl RN on 09/23/23 11:05 Dose Route Admin Location Dispensed Lot Number Expiration Date [facility] Safety Admin Assistant 10 mL intra-urethral 10 mL nitrofurantoin monohydrate/macrocrystals 100 mg capsule Performing Provider: David Cornell MD Performing Location[facility] Administered by: Karis Diehl RN on 09/23/23 11:05 Dose Route Admin Location Dispensed Lot Number Expiration Date [facility] Safety Admin Assistant 100 mg PO 1 cap naproxen 500 mg tablet Performing Provider: David Cornell MD Performing Location[facility] Administered by: Karis Diehl RN on 09/23/23 11:05 Dose Route Admin Location Dispensed Lot Number Expiration Date [facility] Safety Admin Assistant 500 mg PO 1 tab Results AMB Urinalysis, Automated UA Leukoctes 0 Yahaira/uL Last Edit by Rhonda Feldman A on 09/23/23 11:00 UA Nitrite Negative Last Edit by Rhonda Feldman A on 09/23/23 11:00 UA Urobilinogen 0.2 mg/dL Last Edit by Rhonda Feldman A on 09/23/23 11:0 0 UA Protein 0 mg/dL Last Edit by Rhonda Feldman A on 09/23/23 11:00 UA pH 6.0 Last Edit by Rhonda Feldman A on 09/23/23 11:00 UA Blood 0 Tomas/uL Last Edit by Rhonda Feldman A on 09/23/23 11:00 UA Specific Crawford 1.015 Last Edit by Rhonda Feldman A on 09/23/23 11: 00 UA Ketone Negative Last Edit by Rhonda Feldman A on 09/23/23 11:00 UA Bilirubin 0 mg/dL Last Edit by Rhonda Feldman A on 09/23/23 11:00 UA Glucose 0 mg/dL Last Edit by Rhonda Feldman A on 09/23/23 11:00 Results Reviewed Results Reviewed: Laboratory Last Values Urine pH (Auto) 6.0 09/23/23 10:53 Specific Crawford (Auto) 1.015 09/23/23 10:53 Urine Protein (Auto) 0 mg/dL 09/23/23 10:53 Glucose (UA)(Auto) 0 mg/dL 09/23/23 10:53 Urine Ketones (Auto) Negative 09/23/23 10:53 Urine Blood (Auto) 0 Tomas/uL 09/23/23 10:53 Urine Nitrite (Auto) Negative 09/23/23 10:53 Urine Bilirubin (Auto) 0 mg/dL 09/23/23 10:53 Urine Urobilinogen (Auto) 0.2 mg/dL 09/23/23 10:53 Leukocyte Esterase (Auto) 0 Yahaira/uL 09/23/23 10:53 Assessment & Plan Assessment & Plan (1) Gross hematuria: Code(s): R31.0 - Gross hematuria Category: Medical (2) Prostate cancer: Code(s): C61 - Malignant neoplasm of prostate Category: Medical (3) Radiation cystitis: Code(s): N30.40 - Irradiation cystitis without hematuria Category: Medical Plan Twelve month follow-up PSA Orders: Orders AMB Cystoscopy Today R31.29 - Other microscopic hematuria AMB Urinalysis Automated Today R31.29 - Other microscopic hematuria, Z13.9 - Encounter for screening, unspecified Prostate Specific Antigen 364 Days C61 - Malignant neoplasm of prostate Patient Instructions: Imaging studies, laboratory and physical exam results were discussed and reviewed in detail. No major barriers to patient understanding were identified. An opportunity to ask questions regarding the treatment plan was provided. All questions were answered. The patient expressed understanding and agreement with the above treatment plan. The patient is aware they should contact our office by phone for worsening of their current condition or the appearance of new urologic symptoms. Compliance is encouraged with any medications and followup testing that is ordered. It is a privilege to participate in the urologic care of your patient. If you have any questions or concerns regarding treatment for the above conditions, or other urologic issues, please do not hesitate to contact me. The office telephone contact is [phone]. This note is constructed using voice recognition software. While every effort has been made to ensure accuracy pump oiler errors may have been included. Yours sincerely, Dr David Cornell MD, [facility] - Urology Providers of Expert, Compassionate Care for the Genitourinary System Coding Level of Care Code Est Pt Level 4 (90963) Diagnoses Gross hematuria R31.0 Prostate cancer C61 Radiation cystitis N30.40 CPT Codes Cystoscopy - CPT: 85963-[id number] ([id number])
== END 2023-09-23 11:19 | disposition home or self-care (01) ==
PROVIDERS: PCP Internal Medicine; Visit Provider Urology
DX: R31.0 Gross hematuria (principal); C61 Malignant neoplasm of prostate; N30.40 Irradiation cystitis without hematuria; Z13.9 Encounter for screening, unspecified; R31.29 Other microscopic hematuria
CPT/HCPCS: 52000; 99214

== ENCOUNTER → 2023-09-23 10:33 | Outpatient (BNVA) | payer MEDICARE, SELFPAY | PROVIDERS: PCP Internal Medicine; Visit Provider Urology | DX: R31.0 Gross hematuria (principal); N30.40 Irradiation cystitis without hematuria; C61 Malignant neoplasm of prostate | CPT/HCPCS: 52000; 81003; 99212 ==

== ENCOUNTER 2023-09-29 15:54 | Outpatient (REF) | payer MEDICARE, MEDICAID, SELFPAY ==
--- NOTE | ~2023-09-29 | CT_ITS ---
EXAMINATION: CT CHEST SCREENING CLINICAL INFORMATION: Nicotine dependence, cigarettes, uncomplicated. The patient is a current smoker with a 50 pack-year history of smoking. COMPARISON: CT chest 09/26/2022. TECHNIQUE: Multidetector volumetric CT imaging of the chest is performed on a Siemens SOMATOM Definition scanner without contrast using low dose technique. Additional 2D coronal and sagittal reformatted images and axial 3D maximum intensity projection (MIP) images are generated on the CT workstation. This CT examination was performed using dose optimization techniques as appropriate, variously including the following: *Automated exposure control *Adjustment of mA and/or kV according to patient size (this includes techniques or standardized protocols for targeted exams where dose is matched to indication/reason for exam; i.e. extremities or head) *Use of iterative reconstruction technique DLP: 49 mGy-cm FINDINGS: LUNGS: Mild emphysematous changes and bronchial thickening are noted. A 2 mm nodule is present in the right lower lobe in the azygoesophageal recess abutting the pleura and is unchanged (5:201 compare prior 5:10). There is a new 3 mm nodule seen in the left lower lobe (5:212). MEDIASTINUM: The mediastinum is normal. CORONARY ARTERY CALCIFICATION: [id number]. PLEURA: There is no pleural effusion. No pleural mass or thickening. AXILLA: No lymphadenopathy. UPPER ABDOMEN: There is an unchanged 1.8 cm left adrenal nodule measuring -15 Hounsfield units consistent with a benign adenoma. The right kidney is atrophic as seen in the past. OSSEOUS STRUCTURES: Unremarkable. CT/CT lung screening IMPRESSION: There is a new 3 mm left lower lobe pulmonary nodule. There is no evidence of malignancy. Incidental findings as described above. ASSESSMENT: Lung-RADS category 3: Probably Benign. RECOMMENDATION: Routine annual low-dose CT screening in 12 months.
== END 2023-09-29 15:55 | disposition home or self-care (01) ==
LOC: HO.CT 15:54
PROVIDERS: PCP Internal Medicine; Visit Provider Nurse Practitioner Family
DX: Z12.2 Encounter for screening for malignant neoplasm of respiratory organs (principal); F17.210 Nicotine dependence, cigarettes, uncomplicated
CPT/HCPCS: 71271

== ENCOUNTER → 2023-10-22 07:36 | Outpatient (REF) | payer MEDICARE, OTHER, SELFPAY ==
--- NOTE | ~2023-10-22 | NM_ITS ---
EXERCISE MYOCARDIAL PERFUSION STUDY INDICATION: Chest pain, assess for coronary disease and ischemia TECHNIQUE: The patient was brought in for an exercise perfusion study on 10/21/2022. Patient performed exercise as per Jeffrey protocol and was injected 25 mCi of sestamibi once target heart rate was achieved. Images were obtained using the SPECT gamma camera interlaced with the gating device. Images were obtained in supine position. Resting perfusion study was performed on 10/27/2023. Patient was administered 25 mCi of sestamibi intravenously at rest. Images were then obtained in supine position. Images were processed with the software and compared side to side in short axis, horizontal long axis and vertical long axis views. Total DLP 73mGy-cm. FINDINGS: Raw images were reviewed. The stress perfusion study showed diminished tracer uptake along the inferior wall. Absent tracer uptake in the apex. With CT attenuation correction, there is improvement in inferior wall uptake. However, inferior apex still with absent tracer uptake. The gated study shows normal LV systolic function with calculated LVEF of 55%. LV cavity is normal in size. The gated study shows absent contractility at the inferior apex. Resting study shows reduced tracer uptake along the inferior wall. Absent tracer uptake in the inferior apex. Gating at rest reveals mostly normal contractility except at the inferior apex] is reduced. Gated LVEF 52%. The findings are consistent with fixed apical inferior defect with absent uptake. Fixed reduced uptake along the inferior wall elsewhere, related to diaphragmatic attenuation artifact. NM/NM cardiolite stress test IMPRESSION: 1. Myocardial perfusion imaging study shows apical inferior infarction without any ischemia. 2. Gated LVEF is 55% during stress and 52% during rest but visually appears normal. Both. 3. Transient ischemic dilatation not present. EKG component of the test reported separately.
--- NOTE | 2023-10-22 07:41 | CA_ITS ---
Acquisition Time: 2023-10-22 09:11:20 Total Exercise Time: 00:07:00 Test Indications: CP Medications: SEE H Protocol: SERENA Max HR: 144 BPM 92% of Pred: 155 BPM Max BP: 158/072 mmHG Max Work Load: 8.5 METS Exercise stress test exercise 7 min of Serena protocol achieving 92% MPHR, without chest discomforts, with mild SOB, with isolated PVCs, and venticular cuplets, with normotensive resposne to exercise, without EKG changes. Nuclear images pending. Test reviewed with Dr. Flowers. Referred By: Candelario Bal Overread By: Christi Edmond
--- NOTE | 2023-10-22 07:41 | CA_ITS ---
Transthoracic Echocardiogram Patient (Last, First, Middle): Prieto Singh J Gender: Male Date of : 1960 Age: 63 Procedure Date: 10/22/2023 Procedure Type: Transthoracic Echocardiogram Location: OP Height: 172.72 cm Weight: 77.11 kg BSA: 1.91 m2 Heart Rate: 67 bpm BP: 120 / 68 mmHg Char Conveyor Tender Cellar: SB Referring MD: Candelario Bal MD Sr. Logistics Analyst: Carlos Garcia MD Symptoms: I25.10 - Atherosclerotic heart disease of [place] coronary artery without... Study Quality: Fair apical window despite contrast ECG Rhythm: Sinus Conclusions: - 1. Low normal LV ejection fraction 50-55% with underlying wall motion abnormality consistent with coronary artery disease with impaired relaxation filling pattern 2. Cardiac valvular Dopplers within normal limits 3. No gross pericardial effusion Findings Procedure Information Contrast agent, definity, is being given per protocol without apparent complications. The quality of the study was technically difficult. The study quality is limited by lung artifact. Left Ventricle Normal left ventricular cavity size. There is normal left ventricular wall thickness. The left ventricular systolic function is low normal. The visually estimated ejection fraction is between 50-55%. There is evidence of regional wall motion abnormalities. Spectral Doppler is indicative of an impaired relaxation filling pattern. E/E prime ratio is between 8 and 15 consistent with indeterminate filling pressures. Wall Motion Rest Echo Findings The apex and apical inferior segments are dyskinetic. All other scored wall segments showed normal motion. Right Ventricle Normal right ventricular cavity size and systolic function. Atria The left atrium is normal in size. Interatrial shunt cannot be excluded. The right atrium was not well visualized. Aortic Valve There is mild calcification of the aortic valve. There is mild thickening of the aortic valve. There is no aortic valve stenosis. There is no aortic valve regurgitation. Mitral Valve Likely normal mitral valve structure and function. There is trace mitral valve regurgitation. There is no mitral valve stenosis. Pulmonic Valve The pulmonic valve was not well visualized. Tricuspid Valve The tricuspid valve was not well visualized. Tricuspid regurgitation envelope is inadequate for calculation of right ventricular systolic pressure. Normal right atrial pressure. Great Vessels The pulmonary artery was not well visualized. There is no dilatation of the ascending aorta measuring 3.40 cm. Venous The inferior vena cava is normal in size and collapses greater than 50% with inspiration. Pericardium/Pleural There is no evidence of pericardial effusion. Prior Study Comparison No prior study available for comparison. Measurements 2D Linear Measurements IVSd: 1.09 0.6-0.9/0.6-1.0 cm LVIDd: 4.52 3.9-5.3/4.2-5.9 cm LVIDd Index: 2.37 2.4-3.2/2.2-3.1 cm/m2 LVIDs: 3.42 2.0-3.6 cm LVPWd: 0.68 0.7-1.1 cm LA Diam: 3.30 2.7-3.8/3.0-4.0 cm LAIDs Index: 1.73 1.5-2.3 cm/m2 LV Mass: 162.28 67-162/88-224 g LV Mass Index: 84.96 43-95/49-115 g/m2 LVOT Diam: 1.90 3.0+(-)1.3 cm 2D Systolic Function EF 4C: 57.00 >55% EF 2C: 48.50 >55% EF BiP: 50.30 >55% Mitral Valve MV Pk E: 0.71 MV PK A: 0.69 MV Decel Time: 186.00 E/A: 1.00 E'Lateral: 9.03 E'Medial: 7.40 E/E' Med: 9.60 E/E' Lat: 7.90 PHT: 55.00 MVA PHT: 4.00 Decel [place]: 3.81 Aortic Valve AoV Pk Gurmeet: 1.23 AoV Pk Grad: 6.00 EVAN: 3.00 LVOT LVOT Pk Gurmeet: 1.20 LVOT Mn Gurmeet: 0.77 LVOT VTI: 0.26 LVOT Pk Grad: 6.00 LVOT Mn Grad: 3.00 LVOT Diam: 1.90 LVOT Area: 2.84 Diastolic Function MV Pk E: 0.71 MV Pk A: 0.69 E/A: 1.00 E'Medial: 7.40 E/E' Med: 9.60 E' Laterial: 9.03 E/E' Lat: 7.90 Right Ventricle TAPSE (mm): 15.10 TVS' Gurmeet: 8.92 Tricuspid Valve RA Press: 3.00 Great Vessels Aorta Sinus of Valsalva: 3.00 2.0-3.5 cm Ao Asc: 3.40 2.1-3.4 cm Pulmonary Valve PV Pk Gurmeet: 0.72 Peak PV Grad: 2.00 Updated in Other Vendor System with Status of Final Carlos Garcia MD electronically signed on 10/22/2023 1:57:00 PM with status of Final
== END ==
LOC: HO.CARD 07:36
PROVIDERS: PCP Internal Medicine; Visit Provider Internal Medicine
DX: R07.2 Precordial pain (principal); I25.10 Atherosclerotic heart disease of native coronary artery without angina pectoris
CPT/HCPCS: 78452; 93017; 93306; A9500; Q9957

== ENCOUNTER → 2023-10-22 07:41 | Outpatient (BNV) | payer MEDICARE, MEDICAID, SELFPAY | PROVIDERS: PCP Internal Medicine; Visit Provider Internal Medicine Cardiovascular Disease | DX: R07.9 Chest pain, unspecified (principal) | CPT/HCPCS: 78452; 93016; 93018; 93320; 93325; 93350; 93352 ==

== ENCOUNTER 2023-11-17 08:04 | Outpatient (AMB) | payer MEDICARE, SELFPAY ==
[2023-11-17 08:18] VITALS: BP 104/62; PULSE 60; BMI 25.4
--- NOTE | 2023-11-17 08:18 | A.OFFVIS_ITS ---
Vital Signs 11/17/23 08:18 Height 5 ft 8 in Weight 167 lb 1.766 oz BMI 25.4 BP 104/62 Blood Pressure Location Rt brachial Position Sitting Pulse 60 Pulse Source Pulse Oximeter Intake Visit Reasons: r/s 09/21/23 6 wks f/u after echo/mibi [employer] Teacher Required: No Allergies No Known Allergies [No Known Allergies*] Allergy (Verified 11/17/23 08:19) Medication List - Last Reconciled 11/17/23 by Candelario Bal MD aspirin (Adult Aspirin Regimen) 81 mg PO DAILY@1900 atorvastatin 40 mg PO DAILY@1900 cholecalciferol (vitamin D3) 25 mcg PO DAILY@1900 metoprolol succinate ER 12.5 mg PO DAILY@1900 HPI Comments Details: Prieto returns for follow-up. Recently seen in consultation regarding coronary disease. He underwent cardiac catheterization in 2016 and LAD PCI. Has seen [facility] according to him but nothing recently. No clear-cut anginal-type complaints. Chronic smoker and still smokes. Otherwise, feels okay. [facility] Medical History (Updated 10/08/23 @ 15:16 by Liss Pelaez PA-C) CAD (coronary artery disease) Atherosclerotic cardiovascular disease History of [place] (myocardial infarction) (~2015) Essential hypertension Liver cyst History of prostate cancer (~2015) Radiation cystitis Nicotine dependence, cigarettes, uncomplicated Surgical History History of heart artery stent History of transurethral resection of prostate Family History Father No problems noted. Mother No problems noted. Social History Household Members: Spouse Do you presently have visiting nurse or other home services: No Alcohol intake: current Alcohol intake frequency: a few times a month Patient Tobacco Use Status: Current everyday Tobacco user Tobacco use type: Cigarette Cigarettes Per Day: 15 Years Smoked: (current smoker - onset 11yo, 1ppd x 51yrs, now 1/2ppd - 45+PYH) service: Yes Review of Systems ENT Reports dizziness Card Denies chest pain, Denies chest pain at rest, Denies chest pain with activity, Denies rapid heart rate, Denies pedal edema, Denies edema, Denies leg edema, D enies lightheadedness, Denies palpitations, Denies dyspnea, Denies dyspnea on exertion and Denies orthopnea Resp Denies cough, Denies dyspnea and Denies dyspnea on exertion GI Denies hematochezia and Denies change in stool character Musc Denies abnormal gait, Reports limited range of motion, Reports muscle cramps, Denies muscle weakness, Denies numbness, Denies radiating pain into limb, Denies stiffness and Denies tingling Neuro Denies abnormal gait, Reports dizziness, Denies numbness and Denies tingling Endo Denies palpitations Physical Exam Vital Signs: Last Vital Signs Pulse 60 11/17/23 08:18 BP 104/62 11/17/23 08:18 BMI result Body Mass Index 25.4 Const General: comfortable and no acute distress Orientation/consciousness: patient oriented x3 HEENT Other: Unremarkable Head: Yes normal to inspection Neck Neck: Yes normal visual inspection Chest Chest palpation & inspection: normal inspection of the chest Resp Auscultation: clear to auscultation bilaterally Cardio Palpation: normal PMI Heart sounds: S1 normal heart sound present, S2 normal heart sound present, no gallops, no murmurs and no rubs GI Palpation (GI): Soft to palpation Back/Spine/Pelvis Other: unremarkable Skin General skin exam: no rashes or lesions noted Neuro General: patient oriented x3 Extrem General: Yes normal to inspection Psych Mental Status: mental status grossly normal Assessment & Plan Assessment & Plan (1) Atherosclerotic cardiovascular disease: Code(s): I25.10 - Atherosclerotic heart disease of [place] coronary artery without angina pectoris Category: Medical (2) Essential hypertension: Code(s): I10 - Essential (primary) hypertension Category: Medical (3) Smoking: Code(s): F17.200 - Nicotine dependence, unspecified, uncomplicated Category: Social Hx Plan Cardiac studies reviewed. Cardiac catheterization 2016-underwent LAD PCI. Moderate disease in the circumflex and RCA. In the recent echocardiogram, LVEF is 50-55%. Apical inferior/apex dyskinetic. In the perfusion imaging, apical inferior infarction without any ischemia. In the exercise stress test part, attained 8.5 METS, no chest discomfort and no EKG evidence of ischemia. Overall, treat for stable CAD. Clinically, no overt symptoms. Continue aspirin. Stop Plavix. He is on small dose of beta-blockers and can be continued. Continue statins. Discussed about smoking cessation but not clear if he actually stopped. Follow-up in 6 months. Coding Level of Care Code Est Pt Level 4 (06553) Diagnoses Atherosclerotic cardiovascular disease I25.10 Essential hypertension I10 Smoking F17.200
== END 2023-11-17 08:29 | disposition home or self-care (01) ==
PROVIDERS: PCP Internal Medicine; Visit Provider Internal Medicine
DX: I25.10 Atherosclerotic heart disease of native coronary artery without angina pectoris (principal); I10 Essential (primary) hypertension; F17.200 Nicotine dependence, unspecified, uncomplicated
CPT/HCPCS: 99214

== ENCOUNTER → 2023-11-17 08:04 | Outpatient (BNVA) | payer MEDICARE, SELFPAY | PROVIDERS: PCP Internal Medicine; Visit Provider Internal Medicine | DX: I25.10 Atherosclerotic heart disease of native coronary artery without angina pectoris (principal); I10 Essential (primary) hypertension; F17.200 Nicotine dependence, unspecified, uncomplicated; Z79.82 Long term (current) use of aspirin; Z79.899 Other long term (current) drug therapy | CPT/HCPCS: 99212 ==

== ENCOUNTER 2024-04-22 07:00 | Outpatient (REF) | payer MEDICARE, SELFPAY ==
[2024-04-22 07:12] LABS: MANUAL DIFF FLAG NO
[2024-04-22 07:38] LABS: Basophils Absolute Auto 0.1 X10*3/uL (0.0-0.2); Basophils Percent Auto 1.3 % (0-2); Eosinophils Absolute Auto 0.2 X10*3/uL (0.0-0.4); Eosinophils Percent Auto 3.3 % (0-4); Hematocrit 46.9 % (42.0-52.0); Hemoglobin 15.7 g/dl (14.0-18.0); Imm Gran Abs Auto 0.03 X10*3/uL (0.00-0.03); Imm Gran Pct Auto 0.5 % (0.0-0.4); Lymphocytes Absolute Auto 1.5 X10*3/uL (1.2-4.9); Lymphocytes Percent Auto 24.4 % (20-40); Mean Corpuscular HGB Conc 33.5 g/dl (31.0-36.0); Mean Corpuscular Hemoglobin 31.8 pg (27.0-33.0); Mean Corpuscular Volume 94.9 fL (80.0-98.0); Mean Platelet Volume 9.7 fL (9.4-12.4); Monocytes Absolute Auto 0.6 X10*3/uL (0.1-1.2); Neutrophils Absolute Auto 3.7 x10*3/uL (2.0-8.3); Neutrophils Percent Auto 60.5 % (45-73); Platelet Count 231 X10*3/uL (160-400); Red Blood Count 4.94 X10*6/uL (4.60-5.80); Red Cell Distribution Width 13.2 % (11.0-16.0); White Blood Count 6.1 X10*3/uL (4.8-10.8)
[2024-04-22 08:09] LABS: Alanine Aminotransferase 22 U/L (0-40); Albumin Level 4.1 g/dL (3.5-5.0); Alkaline Phosphatase 108 U/L (39-117); Anion Gap 14 (12-20); Aspartate Amino Transferase 25 U/L (5-37); Bilirubin Total 0.5 mg/dL (0.0-1.0); Blood Urea Nitrogen 11 mg/dL (9-16); Calcium 9.4 mg/dL (8.4-10.2); Carbon Dioxide 25 mmol/L (22-29); Chloride 106 mmol/L (96-108); Cholesterol 143 mg/dL (<200); Estimated Glomerular Filt Rate > 60; Glucose Fasting 86 mg/dL (60-99); HDL Cholesterol 40 mg/dL (>40); LDL Cholesterol Calculated 75 mg/dL (<100); Sodium 141 mmol/L (135-145); Triglycerides 142 mg/dL (<150)
[2024-04-22 08:35] LABS: Prostate Specific Antigen < 0.10 ng/mL (<0.05-4.0)
[2024-04-22 09:06] LABS: Appearance Urine Clear; Color Urine Yellow; Glucose Urine UA Negative (Negative); Leukocyte Esterase Urine Negative (Negative); Nitrite Urine Negative (Negative); PH 5.5 (5.0-9.0); UMIC TRIGGER UA YES; Urine Blood Small (1+) (Negative); Urine Ketones Negative (Negative); Urine Protein Negative (Neg-Trace)
[2024-04-22 09:19] LABS: Bacteria Urine None Seen (None Seen); Hyaline Casts Urine 0-2 /LPF (0-2); RBC Urine 0-2 /HPF (0-2); Squamous Epithelial Cell Urine 0-2 /HPF (0-2); WBC Urine 0-5 /HPF (0-5)
== END 2024-04-22 07:01 | disposition home or self-care (01) ==
LOC: HO.LAB 07:00
PROVIDERS: PCP Internal Medicine; Visit Provider Internal Medicine
DX: J44.9 Chronic obstructive pulmonary disease, unspecified (principal); I25.10 Atherosclerotic heart disease of native coronary artery without angina pectoris; I10 Essential (primary) hypertension; E78.00 Pure hypercholesterolemia, unspecified; Z87.442 Personal history of urinary calculi; Z12.5 Encounter for screening for malignant neoplasm of prostate
CPT/HCPCS: 36415; 80053; 80061; 81001; 81003; 84153; 85025

== ENCOUNTER 2024-05-23 09:46 | Outpatient (REF) | payer MEDICARE, MEDICAID, SELFPAY ==
[2024-05-23 11:15] LABS: Hemoglobin 16.3 g/dl (14.0-18.0); Mean Corpuscular HGB Conc 33.3 g/dl (31.0-36.0); Mean Corpuscular Hemoglobin 31.5 pg (27.0-33.0); Mean Corpuscular Volume 94.8 fL (80.0-98.0); Mean Platelet Volume 9.8 fL (9.4-12.4); Platelet Count 255 X10*3/uL (160-400); Red Blood Count 5.17 X10*6/uL (4.60-5.80)
[2024-05-23 11:24] LABS: Prothrombin Time 11.3 SEC (10.9-12.4)
[2024-05-23 11:51] LABS: Anion Gap 10 (12-20); Blood Urea Nitrogen 10 mg/dL (9-16); Calcium 9.1 mg/dL (8.4-10.2); Carbon Dioxide 31 mmol/L (22-29); Chloride 105 mmol/L (96-108); Estimated Glomerular Filt Rate > 60; Glucose Random 87 mg/dL (60-115); Potassium 4.3 mmol/L (3.3-5.1); Sodium 142 mmol/L (135-145); Troponin-I High Sensitivity 3.6 ng/L (<3.5-35.0)
== END 2024-05-23 09:47 | disposition home or self-care (01) ==
LOC: HO.LAB 09:46
PROVIDERS: PCP Internal Medicine; Visit Provider Internal Medicine
DX: R07.2 Precordial pain (principal); I25.10 Atherosclerotic heart disease of native coronary artery without angina pectoris
CPT/HCPCS: 36415; 80048; 84484; 85027; 85610; 93005; 99212

== ENCOUNTER 2024-05-23 09:46 | Outpatient (AMB) | payer MEDICARE, SELFPAY ==
--- OUTSIDE RECORDS SUMMARY | 2024-05-23 09:49 | XMS_ITS ---
Author Organization [facility] Address [address] [facility] [address] [place] [phone] Care Team Providers Care Store Consultant Name Role Phone Simon Varela MD Primary Care Provider Ivan Walsh [phone] MEDICATIONS Medication SIG (Take, Route, Frequency, Duration) Notes Start Date End Date Status Dulcolax (colon prep) 5 MG take at 3:00 p.m and 7:00p.m. Orally two tablets twice a day for one day for 1 day 08/02/2023 Active MiraLax (colon prep) 17 GM/SCOOP 1 238 Gm bottle mixed with Gatorade or Crystal Light Orally begin at 5:00 p.m. the day before the procedure for 1 day 08/02/2023 Active Encounters Encounter Location Date Provider Diagnosis [facility] [address] [address] 07/29/2023 Ivan Roberto PLAN OF TREATMENT Medication Medication Name Sig Start Date Stop Date Notes Dulcolax (colon prep) 5 MG take at 3:00 p.m and 7:00p.m. Orally two tablets twice a day for one day for 1 day 08/02/2023 MiraLax (colon prep) 17 GM/SCOOP 1 238 Gm bottle mixed with Gatorade or Crystal Light Orally begin at 5:00 p.m. the day before the procedure for 1 day 08/02/2023
--- OUTSIDE RECORDS SUMMARY | 2024-05-23 09:49 | XMS_ITS ---
Author Organization [facility] Address [address] [place] [address] Care Team Providers Care Ground Instructor Basic Name Role Phone Simon Varela MD Primary Care Provider Ivan Walsh [phone] REASON FOR VISIT colon screening Encounters Encounter Location Date Provider Diagnosis [facility] [address] [place], [place] [phone] 10/28/2023 Ivan Roberto PLAN OF TREATMENT No Information
--- OUTSIDE RECORDS SUMMARY | 2024-05-23 09:49 | XMS_ITS ---
Author Organization [facility] Address [address] [place] [phone] Care Team Providers Care Shell Trim Operator Name Role Phone Simon Varela MD Primary Care Provider Ivan Walsh [phone] REASON FOR VISIT cardiac clearance Encounters Encounter Location Date Provider Diagnosis [facility] [address] [place] [phone] 08/17/2023 Ivan Roberto PLAN OF TREATMENT No Information
--- OUTSIDE RECORDS SUMMARY | 2024-05-23 09:50 | XMS_ITS | Patient Health Record ---
Author Organization [facility] Address [address] [place] [address] Care Team Providers Care Treating Engineer Helper Name Role Phone Simon Varela MD Primary Care Provider Ivan Walsh [phone] ALLERGIES No Known Allergies REASON FOR REFERRAL No Information MEDICATIONS Medication SIG (Take, Route, Frequency, Duration) Notes Start Date End Date Status Metoprolol Succinate ER 25 MG TAKE 1/2 TABLET BY MOUTH EVERY DAY Oral for 90 Active Clopidogrel Bisulfate 75 MG TAKE 1 TABLE T BY MOUTH EVERY DAY Oral for 90 Active Atorvastatin Calcium 40 MG TAKE 1 TABLET BY MOUTH EVERY NIGHT Oral for 90 Active Dulcolax (colon prep) 5 MG take at 3:00 p.m and 7:00p.m. Orally two tablets twice a day for one day for 1 day 08/02/2023 Active Aspirin 81 81 MG 1 tablet Orally Once a day for 30 day(s) Active Vitamin D-3 125 MCG (5000 UT) 1 tablet Orally Once a day for 30 day(s) Active MiraLax (colon prep) 17 GM/SCOOP 1 238 Gm bottle mixed with Gatorade or Crystal Light Orally begin at 5:00 p.m. the day before the procedure for 1 day 08/02/2023 Active IMMUNIZATIONS Vaccine Route Administration Date Status Comme nts Influenza Unknown 02/17/2023 Administered SOCIAL HISTORY Tobacco Use: Social History Observation Description Date Details (start date - stop date) Current Smoker NA - NA Sex Assigned At : Social History Observation Description Sex Assigned At Unknown Tobacco Use/Smoking Question Answer Notes Patient is a current smoker Alcohol Screen Question Answer Notes Did you have a drink contain ing alcohol in the past year? Yes How often did you have a dri nk containing alcohol in the past year? 2 to 4 times a month (2 points) How many drinks did you have on a typical day when you were drinking in the past year? 3 or 4 drinks (1 point) How often did you have 6 or more drinks on one occasion in the past year? 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 (Z79.02) Active confirmed Long-term current use of antiplatelet drug (situation) (796671516266274 ) VITAL SIGNS Temperature 98.9 degrees Fahrenheit 07/29/2023 Blood pressure diastolic 00 mm Hg 07/29/2023 Height 5 ft 8 in in 07/29/2023 Blood pressure systolic 000 mm Hg 07/29/2023 Weight 176 lb 4 oz lbs 07/29/2023 BMI 26.80 kg/m2 07/29/2023 Encounters Encounter Location Date Provider Diagnosis [facility] [place] [address] [place] [id number] 10/28/2023 Ivan Roberto [facility] [address] [place] [phone] 07/29/2023 Ivan Roberto Colon cancer screeni ng Z12.11 and 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 antiplatelet drug Z79.02 [facility] [address] [place] [phone] 06/08/2023 Ivan Roberto [facility] [address] [place] [phone] 07/29/2023 Ivan Roberto [facility] [address] [place] [phone] 08/17/2023 Ivan Roberto ASSESSMENTS Encounter Date Diagnosis Assessment Notes Treatment Notes Treatment Clinical Notes 07/29/2023 Colon cancer screening (ICD-10 - Z12.11) Do not take the aspirin on the morning of the colonoscopy Stop Clopidogrel for 5 days before the colonoscopy We will get a clearance letter from [facility] [place] after your 08/06/23 appointment 07/29/2023 Encounter for current residential use of antiplatelet drug (ICD-10 - Z79.02) PLAN OF TREATMENT Future Test Test Name Order Date COLONOSCOPY 07/29/2023 Insurance Providers Payer Name Payer Address Payer Phone Subscriber Number Group Number Insured Name Patient Relationship to Insured Coverage Start Date Coverage End Date [facility] [address] [address] [place] [address] [phone] [id number] ROXANNJAYON Self - patient is the insured MEDICAID [facility] [address] [place] [address] [phone] [id number] ROXANN ISH Self - patient is the insured MEDICARE OF [place] [address] [place] [phone] [id number] ROXANNJAYON Self - patient is the insured MEDICAL (GENERAL) HISTORY Medical History History ICD Code Prostate cancer 2016--surgery and then X RT 2016 [place]--has 1 stent in. Neovince bueno to be seeing [facility] [place] [facility] on 08/06/23 for his first OV with them Denies DM,CVA,Lung disease,renal disease Hyperlipidemia Liver cysts seen on ultrasound and CT mo an 2020 Surgical History Surgery Date(Month/Year) Prostatectomy for cancer 2016
[2024-05-23 09:56] VITALS: BP 150/60; PULSE 57; BMI 26.1
--- NOTE | 2024-05-23 09:56 | MHC.OFFVIS ---
Vital Signs 05/23/24 09:56 Height 5 ft 8 in Weight 171 lb 15.369 oz BMI 26.1 BP 150/60 H Blood Pressure Location Lt brachial Position Sitting Pulse 57 Intake Visit Reasons: 6 mth f/up Business Unit Manager Required: No Accompanied by: self Allergies No Known Allergies [No Known Allergies*] Allergy (Verified 11/17/23 08:19) Medication List - Last Reconciled 05/23/24 by Candelario Bal MD aspirin (Adult Aspirin Regimen) 81 mg PO DAILY@1900 atorvastatin 40 mg PO DAILY@1900 cholecalciferol (vitamin D3) 25 mcg PO DAILY@1900 metoprolol succinate ER 12.5 mg PO DAILY@1900 HPI Comments Details: Prieto returns for follow-up. Recently seen in consultation regarding coronary disease. He underwent cardiac catheterization in 2016 and LAD PCI. Has seen [facility] according to him but nothing recently. During the last visit, he states that he is feeling fine. However, today he states that he has had 3 episodes of chest pain in the last month. Each time, it feels like substernal discomfort radiating down both arms. This appears like angina. Today, he states he feels fine. [facility] Medical History (Updated 10/08/23 @ 15:16 by Liss Pelaez PA-C) CAD (coronary artery disease) Atherosclerotic cardiovascular disease History of RI (myocardial infarction) (~2015) Essential hypertension Liver cyst History of prostate cancer (~2015) Radiation cystitis Nicotine dependence, cigarettes, uncomplicated Surgical History History of heart artery stent History of transurethral resection of prostate Family History Father No problems noted. Mother No problems noted. Social History Household Members: Spouse Do you presently have visiting nurse or other home services: No Alcohol intake: current Alcohol intake frequency: a few times a month Patient Tobacco Use Status: Current everyday Tobacco user Tobacco use type: Cigarette Cigarettes Per Day: 15 Years Smoked: (current smoker - onset 11yo, 1ppd x 51yrs, now 1/2ppd - 45+PYH) service: Yes Review of Systems Const Denies chills, Denies fatigue, Denies fever(s), Denies weight gain and Denies weight loss ENT Denies dizziness Card Denies chest pain, Denies leg edema, Denies lightheadedness, Denies palpitations, Denies dyspnea on exertion, Denies orthopnea and Denies other Resp Denies cough and Denies dyspnea on exertion GI Denies hematochezia and Denies change in stool character Musc Denies abnormal gait, Denies muscle weakness, Denies numbness, Denies radiating pain into limb and Denies tingling Neuro Denies abnormal gait, Denies dizziness, Denies numbness and Denies tingling Endo Denies fatigue and Denies palpitations Physical Exam Vital Signs: Last Vital Signs Pulse 57 05/23/24 09:56 BP 150/60 H 05/23/24 09:56 BMI result Body Mass Index 26.1 Const General: comfortable and no acute distress Orientation/consciousness: patient oriented x3 HEENT Other: Unremarkable Head: Yes normal to inspection Neck Neck: Yes normal visual inspection Chest Chest palpation & inspection: normal inspection of the chest Resp Auscultation: clear to auscultation bilaterally Cardio Palpation: normal PMI Heart sounds: S1 normal heart sound present, S2 normal heart sound present, no gallops, no murmurs and no rubs GI Palpation (GI): Soft to palpation Back/Spine/Pelvis Other: unremarkable Skin General skin exam: no rashes or lesions noted Neuro General: patient oriented x3 Extrem General: Yes normal to inspection Psych Mental Status: mental status grossly normal Office Procedures EKG Details: EKG with underlying sinus bradycardia at 57/Min; no significant ST-T changes; [place]. [id number]-[id number], Complete Assessment & Plan Assessment & Plan (1) Atherosclerotic cardiovascular disease: Code(s): I25.10 - Atherosclerotic heart disease of [place] coronary artery without angina pectoris Category: Medical (2) Essential hypertension: Code(s): I10 - Essential (primary) hypertension Category: Medical (3) Smoking: Code(s): F17.200 - Nicotine dependence, unspecified, uncomplicated Category: Social Hx Plan Cardiac studies reviewed. Cardiac catheterization 2015-underwent LAD PCI. Moderate disease in the circumflex and RCA. In the echocardiogram 09/2023, LVEF is 50-55%. Apical inferior/apex dyskinetic. In the perfusion imaging 09/2023, apical inferior infarction without any ischemia. In the exercise stress test part, attained 8.5 METS, no chest discomfort and no EKG evidence of ischemia. Due to recent chest pain episodes, we will plan to do a diagnostic catheterization. We will schedule this for tomorrow. In the interim, continue aspirin. Increase beta-gregory dosing. Add long-acting nitrates. Continue statins. Obtain labs today. Also check troponin. Advised to just rest at home. If any recurrence of pain, advised to come to the ER. Avoid any physical activity for now. Discussed about these today. He understands. Orders: Orders Complete Blood Count no Diff Today I25.10 - Atherosclerotic heart disease of [place] coronary artery without angina pectoris Cardiac Cath LT w PCI Today I25.10 - Atherosclerotic heart disease of [place] coronary artery without angina pectoris Basic Metabolic Panel Today I25.10 - Atherosclerotic heart disease of [place] coronary artery without angina pectoris Prothrombin Time INR Today I25.10 - Atherosclerotic heart disease of [place] coronary artery without angina pectoris Troponin-I High Sensitivity Today R07.2 - Precordial pain Medications: New isosorbide mononitrate ER 30 mg PO DAILY 90 tabs 1RF nitroglycerin do not exceed 3 doses per episode 0.4 mg sublingual Q5M PRN 30 tabs 5RF chest pain R07.2 - Precordial pain metoprolol succinate ER (Toprol XL) 25 mg PO DAILY 90 tabs 1RF Coding Level of Care Code Est Pt Level 5 (30097) Diagnoses Atherosclerotic cardiovascular disease I25.10 Essential hypertension I10 Smoking F17.200 CPT Codes EKG - CPT: 36937-[id number], Complete ([id number])
== END 2024-05-23 10:24 | disposition home or self-care (01) ==
PROVIDERS: PCP Internal Medicine; Visit Provider Internal Medicine
DX: I11.9 Hypertensive heart disease without heart failure (principal); I25.10 Atherosclerotic heart disease of native coronary artery without angina pectoris; F17.200 Nicotine dependence, unspecified, uncomplicated; R00.1 Bradycardia, unspecified
CPT/HCPCS: 93010; 99215

== ENCOUNTER → 2024-05-24 23:59 | Outpatient (BNV) | payer MEDICARE, MEDICAID, SELFPAY | PROVIDERS: PCP Internal Medicine; Visit Provider Internal Medicine Cardiovascular Disease | DX: I20.0 Unstable angina (principal) | CPT/HCPCS: 92928; 93458; 99152 ==

== ENCOUNTER 2024-06-07 13:31 | Outpatient (AMB) | payer MEDICARE, SELFPAY ==
[2024-06-07 14:03] VITALS: BP 118/60; PULSE 76; BMI 25.5
--- NOTE | 2024-06-07 14:03 | MHC.OFFVIS ---
Vital Signs 06/07/24 14:03 Height 5 ft 8 in Weight 167 lb 8.821 oz BMI 25.5 BP 118/60 Blood Pressure Location Lt brachial Position Sitting Pulse 76 Pulse Source Pulse Oximeter Intake Visit Reasons: 2 wk f/up after cath HS Allergies No Known Allergies [No Known Allergies*] Allergy (Verified 06/07/24 14:20) Medication List - Last Reconciled 06/07/24 by Deshaun Rene NP aspirin (Adult Aspirin Regimen) 81 mg PO DAILY@1900 atorvastatin 40 mg PO DAILY@1900 cholecalciferol (vitamin D3) 25 mcg PO DAILY@1900 isosorbide mononitrate ER 30 mg PO DAILY metoprolol succinate ER (Toprol XL) 25 mg PO DAILY nitroglycerin 0.4 mg sublingual Q5M PRN ticagrelor (Brilinta) 90 mg PO Q12H HPI Comments Details: This is a 64-year-old male patient who presents for a follow-up after recent cardiac catheterization. His medical history includes coronary artery disease, previous cardiac catheterization in 2016 with LAD PCI, hypertension, and smoking. He was recently evaluated for chest pain, underwent diagnostic catheterization and a status post stent placement. The patient today reports feeling significantly better and denies any chest pain, shortness of breath, fatigue, dizziness, palpitations, presyncope or syncope. [facility] Medical History CAD (coronary artery disease) Atherosclerotic cardiovascular disease History of [place] (myocardial infarction) (~2015) Essential hypertension Liver cyst History of prostate cancer (~2015) Radiation cystitis Nicotine dependence, cigarettes, uncomplicated Surgical History Status post coronary artery stent placement History of heart artery stent History of transurethral resection of prostate Family History Father No problems noted. Mother No problems noted. Social History Household Members: Spouse Do you presently have visiting nurse or other home services: No Alcohol intake: current Alcohol intake frequency: a few times a month Patient Tobacco Use Status: Current everyday Tobacco user Tobacco use type: Cigarette Cigarettes Per Day: 15 Years Smoked: (current smoker - onset 11yo, 1ppd x 51yrs, now 1/2ppd - 45+PYH) service: Yes Review of Systems Const Denies weakness ENT Denies dizziness Card Denies chest pain, Denies chest pain with activity, Denies syncope, Denies rapid heart rate, Denies pedal edema, Denies edema, Denies leg edema, Denies lightheadedness, Denies palpitations, Denies dyspnea, Denies dyspnea on exertion and Denies orthopnea Resp Denies cough, Denies dyspnea and Denies dyspnea on exertion GI Denies hematochezia and Denies change in stool character Musc Denies abnormal gait, Denies muscle cramps, Denies muscle weakness, Denies numbness, Denies radiating pain into limb and Denies tingling Neuro Denies abnormal gait, Denies dizziness, Denies syncope, Denies numbness, Denies tingling and Denies weakness Endo Denies palpitations Physical Exam Vital Signs: Last Vital Signs Pulse 76 06/07/24 14:03 BP 118/60 06/07/24 14:03 BMI result Body Mass Index 25.5 Const General: cooperative, healthy appearing, comfortable and no acute distress Orientation/consciousness: patient oriented x3 HEENT Head: Yes normal to inspection Neck Neck: Yes normal visual inspection, Yes trachea midline and Yes supple Chest Chest palpation & inspection: normal inspection of the chest Resp Effort & Inspection: normal respiratory effort Auscultation: clear to auscultation bilaterally, no crackles, no rales, no rhonchi and no wheezes Cardio Jugular venous distension: no JVD Palpation: normal PMI Rate: regular rate Rhythm: regular rhythm Heart sounds: S1 normal heart sound present, S2 normal heart sound present, no click, no gallops, no murmurs and no rubs Peripheral pulses: Peripheral pulses 2+ throughout GI Inspection: Yes normal to inspection Palpation (GI): Soft to palpation Auscultation: normal bowel sounds Skin General skin exam: no rashes or lesions noted Neuro General: patient oriented x3 Extrem General: Yes normal to inspection, No no pedal edema and No calf tenderness Psych Appearance: grossly normal Mental Status: mental status grossly normal Speech and movement: Normal speech and movement present Assessment & Plan Assessment & Plan (1) Atherosclerotic cardiovascular disease: Code(s): I25.10 - Atherosclerotic heart disease of [place] coronary artery without angina pectoris Category: Medical (2) Status post coronary artery stent placement: Code(s): Z95.5 - Presence of coronary angioplasty implant and graft Category: Medical (3) Essential hypertension: Code(s): I10 - Essential (primary) hypertension Category: Medical (4) Smoking: Code(s): F17.200 - Nicotine dependence, unspecified, uncomplicated Category: Social Hx Plan 05/24/2024-underwent cardiac catheterization and LCX PCI. Showed patent LAD PCI and moderate disease in RCA. 10/22/2023-echo showed low-normal EF 50-55% with underlying wall motion abnormality consistent with coronary artery disease and impaired relaxation filling pattern 10/27/2023-myocardial perfusion imaging study showed apical inferior infarction without any ischemia. In the exercise stress test part, attained 8.5 METS, no chest discomfort and no EKG evidence of ischemia. His right radial catheterization access site is healing well. Continue lifelong aspirin therapy. Continue Brilinta for 12 months uninterrupted. Continue the isosorbide, metoprolol, atorvastatin. Start cardiac rehab. Strongly and repeatedly emphasized to the patient to stop smoking, verbalizes understanding. Follow-up in 3 months. In the interim, patient will call us with any concerns. This note was generated using voice recognition software. While every effort has been made to ensure accuracy and proper compress machine operator, there may be occasional errors that could affect the content or meaning of the described symptoms. Orders: Orders Cardiac Rehab Today Z95.5 - Presence of coronary angioplasty implant and graft Coding Level of Care Code Est Pt Level 4 (72577) Diagnoses Atherosclerotic cardiovascular disease I25.10 Status post coronary artery stent placement Z95.5 Essential hypertension I10 Smoking F17.200 Time Spent (min) 31 Comment Time spent in reviewing the chart, test results, assessment, counseling and documentation.
--- OUTSIDE RECORDS SUMMARY | 2024-06-07 16:11 | XMS_ITS ---
Author Organization [facility] Address [address] [facility] [address] [place] [phone] Care Team Providers Care Radio Maintainer Name Role Phone Simon Varela MD Primary Care Provider Ivan Walsh [phone] MEDICATIONS Medication SIG (Take, Route, Frequency, Duration) [...] Active Encounters Encounter Location Date Provider Diagnosis [facility] [address] [address] 07/29/2023 Ivan Roberto PLAN OF TREATMENT Medication [...]
--- OUTSIDE RECORDS SUMMARY | 2024-06-07 16:11 | XMS_ITS | Patient Health Record ---
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 use of antiplatelet drug (Z79.02) Active confirmed Long-term current use of antiplatelet drug (situation) (079411998930800 ) VITAL SIGNS Temperature 98.9 degrees Fahrenheit 07/29/2023 Blood pressure diastolic 00 mm Hg 07/29/2023 Height 5 ft 8 in in 07/29/2023 Blood pressure systolic 000 mm Hg 07/29/2023 Weight 176 lb 4 oz lbs 07/29/2023 BMI 26.80 kg/m2 07/29/2023 Encounters Encounter Location Date Provider Diagnosis [facility] [place] [address] [place] [id number] 10/28/2023 Ivan Roberto [facility] [address] [place] [phone] 07/29/2023 Ivan Roberto Colon cancer screeni ng Z12.11 and 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 Z79.02 [facility] [address] [place] [phone] 06/08/2023 Ivan Roberto [facility] [address] [place] [phone] 07/29/2023 Ivan Roberto [facility] [address] [place] [phone] 08/17/2023 Ivan Roberto ASSESSMENTS Encounter Date Diagnosis Assessment Notes Treatment Notes Treatment Clinical Notes 07/29/2023 Colon cancer screening (ICD-10 - Z12.11) Do not take the aspirin on the morning of the colonoscopy Stop Clopidogrel for 5 days before the colonoscopy We will get a clearance letter from [facility] [place] after your 08/06/23 appointment 07/29/2023 Encounter for current skilled nursing use of antiplatelet drug (ICD-10 - Z79.02) PLAN OF TREATMENT Future Test Test Name Order Date COLONOSCOPY 07/29/2023 Insurance Providers Payer Name Payer Address Payer Phone Subscriber Number Group Number Insured Name Patient Relationship to Insured Coverage Start Date Coverage End Date [facility] [address] [address] [place] [address] [phone] [id number] ROXANNJAYON Self - patient is the insured MEDICAID OF [facility] [address] [place] [address] [phone] [id number] ROXANN ISH Self - patient is the insured MEDICARE OF [place] [address] [place] [id number] [phone] [id number] ROXANNJAYON Self - patient is the insured MEDICAL (GENERAL) HISTORY Medical History History ICD Code Prostate cancer 2016--surgery and then X RT 2016 [place]--has 1 stent in. Neovince bueno to be seeing [facility] [place]iology on 08/06/23 for his first OV with them Denies DM,CVA,Lung disease,renal disease Hyperlipidemia Liver cysts seen on ultrasound and CT [place] an 2020 Surgical History Surgery Date(Month/Year) Prostatectomy for cancer 2016
--- OUTSIDE RECORDS SUMMARY | 2024-06-07 16:11 | XMS_ITS ---
Author Organization [facility] Address [address] [place] [phone] Care Team Providers Care Composition Floor Setter Name Role Phone Simon Varela MD Primary Care Provider Ivan Walsh [phone] REASON FOR VISIT cardiac clearance Encounters Encounter Location Date Provider Diagnosis [facility] [address] [place] [phone] 08/17/2023 Ivan Roberto PLAN OF TREATMENT No Information
== END 2024-06-07 14:21 | disposition home or self-care (01) ==
PROVIDERS: PCP Internal Medicine
DX: I25.10 Atherosclerotic heart disease of native coronary artery without angina pectoris (principal); Z95.5 Presence of coronary angioplasty implant and graft; I10 Essential (primary) hypertension; F17.200 Nicotine dependence, unspecified, uncomplicated
CPT/HCPCS: 99214

== ENCOUNTER → 2024-06-07 13:31 | Outpatient (BNVA) | payer MEDICARE, SELFPAY | PROVIDERS: PCP Internal Medicine | DX: I25.10 Atherosclerotic heart disease of native coronary artery without angina pectoris (principal); I10 Essential (primary) hypertension; F17.210 Nicotine dependence, cigarettes, uncomplicated; Z95.5 Presence of coronary angioplasty implant and graft | CPT/HCPCS: 99212 ==

== ENCOUNTER 2024-09-13 13:14 | Outpatient (AMB) | payer MEDICARE, SELFPAY ==
--- NOTE | 2024-09-13 13:44 | MHC.OFFVIS ---
Vital Signs 09/13/24 13:45 Height 5 ft 8 in Weight 169 lb 12.095 oz BMI 25.8 BP 118/60 Blood Pressure Location Lt brachial Position Sitting Pulse 72 Pulse Source Pulse Oximeter Intake Visit Reasons: follow up Allergies No Known Allergies [No Known Allergies*] Allergy (Verified 06/07/24 14:20) Medication List - Last Reconciled 09/13/24 by Deshaun Rene NP aspirin (Adult Aspirin Regimen) 81 mg PO DAILY@1900 atorvastatin 40 mg PO DAILY@1900 cholecalciferol (vitamin D3) 25 mcg PO DAILY@1900 isosorbide mononitrate ER 30 mg PO DAILY metoprolol succinate ER (Toprol XL) 25 mg PO DAILY nitroglycerin 0.4 mg sublingual Q5M PRN ticagrelor (Brilinta) 90 mg PO Q12H HPI Comments Details: This is a 64-year-old male patient coming in for a follow-up visit. Patient with a history of hypertension, tobacco use, and coronary artery disease status post LAD stenting in 2015 and LCX stenting in 2023. The patient reports feeling well overall and denies any current cardiac symptoms including exertional chest pain, shortness of breath, fatigue, orthopnea, PND, leg edema, dizziness, palpitations, presyncope, or syncope. Patient states that he has been compliant with all his medications. Although he did not initiate his cardiac rehabilitation due to financial constraints, he reports attempting to stay physically active on his own. Notably, he has significantly reduced his tobacco use cutting back from 1 pack daily to approximately 1 pack every 3-4 days. [facility] Medical History Status post coronary artery stent placement CAD (coronary artery disease) Atherosclerotic cardiovascular disease History of AL (myocardial infarction) (~2015) Essential hypertension Liver cyst History of prostate cancer (~2015) Radiation cystitis Nicotine dependence, cigarettes, uncomplicated Surgical History History of heart artery stent History of transurethral resection of prostate Family History Father No problems noted. Mother No problems noted. Social History Household Members: Spouse Do you presently have visiting nurse or other home services: No Alcohol intake: current Alcohol intake frequency: a few times a month Patient Tobacco Use Status: Current everyday Tobacco user Tobacco use type: Cigarette Cigarettes Per Day: 15 Years Smoked: (current smoker - onset 11yo, 1ppd x 51yrs, now 1/2ppd - 45+PYH) service: Yes Review of Systems Const Denies weakness ENT Denies dizziness Card Denies chest pain, Denies chest pain with activity, Denies syncope, Denies rapid heart rate, Denies pedal edema, Denies edema, Denies leg edema, Denies lightheadedness, Denies palpitations, Denies dyspnea, Denies dyspnea on exertion and Denies orthopnea Resp Denies cough, Denies dyspnea and Denies dyspnea on exertion GI Denies hematochezia and Denies change in stool character Musc Denies abnormal gait, Denies muscle cramps, Denies muscle weakness, Denies numbness, Denies radiating pain into limb and Denies tingling Neuro Denies abnormal gait, Denies dizziness, Denies syncope, Denies numbness, Denies tingling and Denies weakness Endo Denies palpitations Physical Exam Vital Signs: Last Vital Signs Pulse 72 09/13/24 13:45 BP 118/60 09/13/24 13:45 BMI result Body Mass Index 25.8 Const General: cooperative, healthy appearing, comfortable and no acute distress Orientation/consciousness: patient oriented x3 HEENT Head: Yes normal to inspection Neck Neck: Yes normal visual inspection, Yes trachea midline and Yes supple Chest Chest palpation & inspection: normal inspection of the chest Resp Effort & Inspection: normal respiratory effort Auscultation: clear to auscultation bilaterally, no crackles, no rales, no rhonchi and no wheezes Cardio Jugular venous distension: no JVD Palpation: normal PMI Rate: regular rate Rhythm: regular rhythm Heart sounds: S1 normal heart sound present, S2 normal heart sound present, no click, no gallops, no murmurs and no rubs Peripheral pulses: Peripheral pulses 2+ throughout GI Inspection: Yes normal to inspection Palpation (GI): Soft to palpation Auscultation: normal bowel sounds Skin General skin exam: no rashes or lesions noted Neuro General: patient oriented x3 Extrem General: Yes normal to inspection, No no pedal edema and No calf tenderness Psych Appearance: grossly normal Mental Status: mental status grossly normal Speech and movement: Normal speech and movement present Assessment & Plan Assessment & Plan (1) Atherosclerotic cardiovascular disease: Code(s): I25.10 - Atherosclerotic heart disease of [place] coronary artery without angina pectoris Category: Medical (2) Status post coronary artery stent placement: Code(s): Z95.5 - Presence of coronary angioplasty implant and graft Category: Medical (3) Essential hypertension: Code(s): I10 - Essential (primary) hypertension Category: Medical (4) Smoking: Code(s): F17.200 - Nicotine dependence, unspecified, uncomplicated Category: Social Hx Plan 05/24/2024-underwent cardiac catheterization and LCX PCI. Showed patent LAD PCI and moderate disease in RCA. 10/22/2023-echo showed low-normal EF 50-55% with underlying wall motion abnormality consistent with coronary artery disease and impaired relaxation filling pattern 10/27/2023-myocardial perfusion imaging study showed apical inferior infarction without any ischemia. In the exercise stress test part, attained 8.5 METS, no chest discomfort and no EKG evidence of ischemia. Clinically stable. Continue lifelong aspirin therapy. Continue uninterrupted Brilinta therapy for 12 months at least. No reported signs of bleeding. Blood pressure today within goal and states it is stable at home as well. Continue isosorbide and metoprolol therapy. Advised continuing to monitor blood pressures at home. Ideally, blood pressure goal less than 130/80. Most recent LDL at 75. Continue statin therapy. We will repeat lipid panel. Ideally, goal for LDL less than 70. Advised heart healthy diet, med compliance, regular exercise, and discussed smoking cessation in detail. Follow-up in 6 months. In the interim, patient will call the office with any concerns or change in symptoms. This note was generated using voice recognition software. While every effort has been made to ensure accuracy and proper excellence leader, there may be occasional errors that could affect the content or meaning of the described symptoms. Orders: Orders Basic Metabolic Panel 5 Months I25.10 - Atherosclerotic heart disease of [place] coronary artery without angina pectoris Lipid Panel 5 Months I25.10 - Atherosclerotic heart disease of [place] coronary artery without angina pectoris Coding Level of Care Code Est Pt Level 4 (52039) Complex EM visit Add On G2211 Diagnoses Atherosclerotic cardiovascular disease I25.10 Status post coronary artery stent placement Z95.5 Essential hypertension I10 Smoking F17.200 Time Spent (min) 34 Comment Time spent in reviewing the chart, test results, assessment, counseling and documentation.
[2024-09-13 13:45] VITALS: BP 118/60; PULSE 72; BMI 25.8
--- OUTSIDE RECORDS SUMMARY | 2024-09-13 16:09 | XMS_ITS ---
Author Organization [facility] Address [address] [address] Care Team Providers Care Archeologist Name Role Phone Simon Varela MD Primary Care Provider Ivan Walsh [phone] Medications Medication SIG (Take, Route, Frequency, Duration) Notes [...] Active Encounters Encounter Location Date Provider Diagnosis [facility] [address] 07/29/2023 Ivan Roberto Plan Of Treatment Medication Medication Name Sig Start Date Stop Date Notes Dulcolax (colon prep) 5 MG take at 3:00 p.m and 7:00p.m. Orally two tablets twice a day for one day for 1 day 08/02/2023 MiraLax (colon prep) 17 GM/SCOOP 1 238 Gm bottle mixed with Gatorade or Crystal Light Orally begin at 5:00 p.m. the day before the procedure for 1 day 08/02/2023 Progress Notes * SANTA HACKETTOB:1960 (63 yo M)Acc No.[id number]:07/29/2023 Patient:?ISH HACKETT :1960???Age:63 Y???Sex:Male Address:[address] [place] [address], [place] [address] * Refills? Start MiraLax (colon prep) Powder, 17 GM/SCOOP, Orally, 1, 1 238 Gm bottle mixed with Gatorade or Crystal Light, begin at 5:00 p.m. the day before the procedure, 1 day, Refills=0 Start Dulcolax (colon prep) Tablet Delayed Release, 5 MG, Orally, 4, take at 3:00 p.m and 7:00p.m., two tablets twice a day for one day, 1 day, Refills=0 * true * Date:? Generated for Susan bueno/Mg/Lizzieitting on:?09/13/2024 04:09 PM EDT
--- OUTSIDE RECORDS SUMMARY | 2024-09-13 16:09 | XMS_ITS | Patient Health Record ---
Author Organization [facility] Address [address] [place] [address] Care Team Providers Care Flight Tower Dispatcher Name Role Phone Simon Varela MD Primary Care Provider Ivan Walsh Unavailable [phone] Allergies No Known Allergies Reason For Referral No Information Medications Medication SIG (Take, Route, Frequency, Duration) [...] the procedure for 1 day 08/02/2023 Active Immunizations Vaccine Route Administration Date Status Comme nts Influenza Unknown 02/17/2023 Administered Social History Tobacco Use: Social History Observation Description Date Details (start date - stop date) Current Smoker NA - NA Tobacco Use/Smoking Question Answer Notes Patient is [...] Never (0 point) Points 3 Interpretation Negative Section Notes: Smoker 1ppd, no sig alcohol Problems Problem Type SNOMED Code ICD Code Onset Dates Problem Status W/U Status Risk Notes Problem Colon cancer screening (183303761) Colon cancer screening (Z12.11) Active confirmed Problem Long-term current use of antiplatelet drug (situation) (564450138674528 ) Encounter for current senior living use of antiplatelet drug (Z79.02) Active confirmed Plan Of Treatment Future Test Test Name Order Date COLONOSCOPY 07/29/2023 Insurance Providers Payer Name Payer Address Payer Phone Subscriber Number Group Number Insured Name Patient Relationship to Insured Coverage Start Date Coverage End Date [facility] [address] [address] [place] [address] [id number] ISH HACKETT Self - patient is the insured MEDICAID OF [facility] [address] [place] [address] [id number] ISH HACKETT Self - patient is the insured MED[place]ARE OF [place] [address] [place] [id number] ISH HACKETT Self - patient is the insured Medical (General) History Medical History History ICD Code Prostate cancer 2016--surgery and then X RT 2016 [place]--has 1 stent in. Neovince bueno to be seeing [facility] on 08/06/23 for his first OV with them Denies DM,CVA,Lung disease,renal disease Hyperlipidemia Liver cysts seen on ultrasound and CT il an 2020 Surgical History Surgery Date(Month/Year) Prostatectomy for cancer 2015
--- OUTSIDE RECORDS SUMMARY | 2024-09-13 16:09 | XMS_ITS ---
Author Organization [facility] Address [address] [place] [phone] Care Team Providers Care Fireworks Assembly Supervisor Name Role Phone Simon Varela MD Primary Care Provider Ivan Walsh [phone] REASON FOR VISIT cardiac clearance Encounters Encounter Location Date Provider Diagnosis [facility] [address] [place] [phone] 08/17/2023 Ivan Roberto Plan Of Treatment No Information Progress Notes * SANTA HACKETTOB:1960 (63 yo M)Acc No.[id number]:08/17/2023 Patient:?ISH HACKETT :1960???Age:63 Y???Sex:Male Address:[address] [place] [address], [address] * true * Date:? Generated for Lului ximena/Mg/eTransmitting on:?09/13/2024 04:09 PM EDT
--- OUTSIDE RECORDS SUMMARY | 2024-09-13 16:09 | XMS_ITS ---
Author Organization [facility] Address [address] [place] [address] Care Team Providers Care Poultry Packer Name Role Phone Simon Varela MD Primary Care Provider Ivan Walsh [phone] REASON FOR VISIT colon screening Encounters Encounter Location Date Provider Diagnosis [facility] [address] [place] [phone] 10/28/2023 Ivan Roberto Plan Of Treatment No Information Progress Notes * JAY HACKETTONDOB:1960 (64 yo M)Acc No.[id number]:10/28/2023 COLON WITH MAC Patient:?ISH HACKETT Provider:?Ivan Roberto MD :1960???Age:63 Y???Sex:Male Will e:10/28/2023 Address:[address] [place], [place] [id number] Pcp:Simon Varela MD Subjective: * Chief Complaints: * ???1. Colon screening. * Medical History:? Objective: * Vitals:? Assessment: Plan: * Treatment: * * The named appointment provid er may or may not be the originator of this progress note, and it is not deemed complete until electronically signed by the appointment provider. Sign off status: Pending * Provider:?Ivan Roberto MD Date:? 024 Generated for Printi ng/Faxing/eTransmitting on:?09/13/2024 04:09 PM EDT
== END 2024-09-13 13:59 | disposition home or self-care (01) ==
LOC: HO.HCS 13:14
PROVIDERS: PCP Internal Medicine
DX: I25.10 Atherosclerotic heart disease of native coronary artery without angina pectoris (principal); Z95.5 Presence of coronary angioplasty implant and graft; I10 Essential (primary) hypertension; F17.200 Nicotine dependence, unspecified, uncomplicated
CPT/HCPCS: 99214; G2211

== ENCOUNTER → 2024-09-13 13:14 | Outpatient (BNVA) | payer MEDICARE, SELFPAY | PROVIDERS: PCP Internal Medicine | DX: I25.10 Atherosclerotic heart disease of native coronary artery without angina pectoris (principal); I10 Essential (primary) hypertension; F17.210 Nicotine dependence, cigarettes, uncomplicated; Z95.5 Presence of coronary angioplasty implant and graft | CPT/HCPCS: 99212 ==

== ENCOUNTER 2024-09-28 09:56 | Outpatient (AMB) | payer MEDICARE, SELFPAY ==
[2024-09-28 10:38] VITALS: BP 116/60; PULSE 54; TEMP 36.4; O2SAT 95; BMI 26.0
--- NOTE | 2024-09-28 10:38 | MHC.PC.OV ---
Vital Signs 09/28/24 10:38 Height 5 ft 8 in Weight 171 lb BMI 26.0 BP 116/60 Blood Pressure Location Lt brachial Position Sitting Pulse 54 Pulse Source Pulse Oximeter Temp 97.6 F Temp Source Axillary Pulse Oximetry (%) 95 Oxygen Delivery Method Room Air Intake Visit Reasons: Routine - see comments Allergies No Known Allergies [No Known Allergies*] Allergy (Verified 09/28/24 13:31) Medication List - Last Reconciled 09/28/24 by Rey Johansen MD aspirin (Adult Aspirin Regimen) 81 mg PO DAILY@1900 atorvastatin 40 mg PO DAILY@1900 cholecalciferol (vitamin D3) 25 mcg PO DAILY@1900 isosorbide mononitrate ER 30 mg PO DAILY metoprolol succinate ER (Toprol XL) 25 mg PO DAILY nitroglycerin 0.4 mg sublingual Q5M PRN ticagrelor (Brilinta) 90 mg PO Q12H Tobacco use date assessed: 09/28/24 Fall risk assessment: No Falls in past year Last assessed Fall Risk: 09/28/24 Dental Screening Dental Screen Date: 09/28/24 Did you have a dental visit in the last 12 months?: Yes Did you have a dental problem in the last 6 months where you did not have access to dental care?: No PFSH Medical History Status post coronary artery stent placement CAD (coronary artery disease) Atherosclerotic cardiovascular disease History of [place] (myocardial infarction) (~2015) Essential hypertension Liver cyst History of prostate cancer (~2015) Radiation cystitis Nicotine dependence, cigarettes, uncomplicated Surgical History History of heart artery stent (~2015) History of transurethral resection of prostate (~2016) Family History Father No problems noted. Mother No problems noted. Social History Household Members: Spouse Housing: House Do you presently have visiting nurse or other home services: No Alcohol intake: current Alcohol intake frequency: a few times a month Patient Tobacco Use Status: Current everyday Tobacco user Tobacco use type: Cigarette Cigarettes Per Day: 15 Years Smoked: (current smoker - onset 11yo, 1ppd x 51yrs, now 1/2ppd - 45+PYH) e-Cigarette/Vaping Use: Currently Using service: Yes Current occupational status: retired Cognitive needs: No Hearing needs: No Vision needs: Yes (rx glasses) Questionnaire PHQ-9 Over the last 2 weeks, how often have you been bothered by any of the following problems? 1. Little interest or pleasure in doing things: not at all 2. Feeling down, depressed, or hopeless: not at all 3. Trouble falling or staying asleep, or sleeping too much: not at all 4. Feeling tired or having little energy: not at all 5. Poor appetite or overeating: not at all 6. Feeling bad about yourself - or that you are a failure or have let yourself or your family down: not at all 7. Trouble concentrating on things, such as reading the newspaper or watching television: not at all 8. Moving or speaking so slowly that other people could have noticed. Or the opposite - being so fidgety or restless that you have been moving around a lot more than usual: not at all 9. Thoughts that you would be better off or of hurting yourself in some way: not at all Total score: 0 Source: Developed by Drs. Ivan Ruiz, Muna Renee, Vince Spivey and colleagues, with an educational cristian from [employer]. Thrive Questionnaire Date Thrive assessed: 09/10/23 I am a: Patient Within the past 12 months, did the food you bought not last and you didn't have the money to get more?: Never true Within the past 12 months, did you worry whether your food would run out before you got money to buy more?: Never true Do you have trouble paying for medicines?: No Do you have trouble getting transportation to medical appointments?: No Do you have trouble paying your heating and electricity bill?: No Do you have trouble taking care of your child, family member or friend?: No Do you have trouble with day-to-day activities such as bathing, preparing meals, shopping, managing finances, etc.?: No Are you currently unemployed and looking for a job?: No Are you interested in more education?: No THRIVE Score: 0 AUDIT C Alcohol Use Questionnaire (AUDIT-C) 1. How often do you have a drink containing alcohol?: Never 3. How often do you have six or more drinks on one occasion?: Never Total Score: 0 CHUCHO-7 AMB Questionnaire CHUCHO-7 Date CHUCHO - 7 assessed: 09/28/24 Feeling nervous, anxious, or on edge: 0 = Not at all Not being able to stop or control worryin = Not at all Worrying too much about different things: 0 = Not at all Trouble relaxin = Not at all Being so restless that it is hard to sit still: 0 = Not at all Becoming easily annoyed or irritable: 0 = Not at all Feeling afraid as if something awful might happen: 0 = Not at all Total CHUCHO-7 score (0-4 normal; 5-9 mild; 10-14 moderate; 15-21 severe): 0 Source: Developed by Drs. Ivan Ruiz, Muna Renee, Vince Spivey and colleagues, with an educational cristian from [employer]. Physical exam (Primary Care) Vital Signs: Last Vital Signs Temp 97.6 F 09/28/24 10:38 Pulse 54 09/28/24 10:38 BP 116/60 09/28/24 10:38 Pulse Ox 95 09/28/24 10:38 Oxygen Delivery Method Room Air 09/28/24 10:38 BMI result Body Mass Index 26.0 Tobacco/Smoking Status: Tobacco use Status Tobacco use date assessed 09/28/24 09/28/24 11:03 Patient Tobacco Use Status Current everyday Tobacco 09/28/24 10:41 Tobacco use type Cigarette 09/28/24 10:41 e-Cigarette/Vaping Use Currently Using 09/28/24 11:03 PHQ-9: PHQ-9 Score PHQ-9: Total score 0 09/28/24 11:03 Thrive Assessment: Date of Thrive Assessment Date Thrive assessed 09/10/23 09/28/24 10:41 Coding Level of Care Code New Pt Level 4 (83429) Complex EM visit Add On G2211 Diagnoses Essential hypertension I10 Nicotine dependence, cigarettes, uncomplicated F17.210 Assessment & Plan Assessment & Plan (1) Essential hypertension: Code(s): I10 - Essential (primary) hypertension Category: Medical Plan: BP is stable, continue current meds (2) Nicotine dependence, cigarettes, uncomplicated: Comment: (current smoker - onset 11yo, 1ppd x 52yrs, now 1/2ppd - 45+PYH) Code(s): F17.210 - Nicotine dependence, cigarettes, uncomplicated Category: Medical Plan: Counselled to quit smoking. Plan History of Present Illness The patient is a 64-year-old male presenting with a wellness visit. The patient has a history of tobacco use, smoking a pack every four days. 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 The patient lives with his and stays active by walking to the store. He mentioned being under the care of a industrial technology education teacher and is currently on two new medications. The patient has not reported any acute health concerns and expresses the ability to perform daily activities without pain or breathing issues. 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 - Living situation: Resides with his - Exercise: Engages in walking - Activities: Enjoys using the computer and playing games Review of Systems - General: Denies pain - Respiratory: Denies breathing difficulties Physical Exam General: Cooperative and healthy appearing Nutritional Appearance: Well nourished Orientation/consciousness: Patient oriented x3 Limitations: No limitations Head: Normal to inspection General: Appearance normal, both eyes and all related structures Neck: Normal visual inspection Chest: Normal palpation of entire chest wall Respiratory: Breathe no pains here ormal respiratory effort Neurology: Patient oriented x3 Results Plan - Continue current industrial technology education teacher-prescribed medication regimen. - Offer tobacco cessation support including counseling and potential pharmacotherapy. - Routine blood work to be conducted before the next visit for health monitoring. Patient was informed and verbally consented to the use of an ambient scribe for clinic note documentation during this visit. Discussion Notes During the visit, I discussed with the patient the importance of maintaining regular follow-ups with his industrial technology education teacher to monitor the impact of his new medications. We conversed about tobacco cessation strategies, highlighting the health benefits of reducing smoking further or quitting altogether. The patient is encouraged to participate in routine exercise as part of his health maintenance. It was agreed to schedule routine blood work before the next appointment to ensure ongoing health monitoring. Patient Instructions - Continue taking your medications as directed by your industrial technology education teacher. - Try to reduce your smoking further; consider options for quitting. - Keep doing physical activity, such as walking. - Get your blood tests done before your next visit for us to review. - Call the pharmacy if you need medication refills.
== END 2024-09-28 11:04 | disposition home or self-care (01) ==
LOC: HO.HMCHD 09:57
PROVIDERS: PCP Internal Medicine; Visit Provider Internal Medicine
DX: I10 Essential (primary) hypertension (principal); F17.210 Nicotine dependence, cigarettes, uncomplicated

== ENCOUNTER → 2024-09-28 09:56 | Outpatient (BNVA) | payer MEDICARE, SELFPAY | PROVIDERS: PCP Internal Medicine; Visit Provider Internal Medicine | DX: I10 Essential (primary) hypertension (principal); F17.210 Nicotine dependence, cigarettes, uncomplicated; Z71.6 Tobacco abuse counseling | CPT/HCPCS: 99202 ==

== ENCOUNTER 2024-10-11 06:54 | Outpatient (REF) | payer MEDICARE, SELFPAY ==
[2024-10-11 07:35] LABS: Hematocrit 45.5 % (42.0-52.0); Hemoglobin 15.1 g/dl (14.0-18.0); Mean Corpuscular HGB Conc 33.2 g/dl (31.0-36.0); Mean Corpuscular Hemoglobin 31.5 pg (27.0-33.0); Mean Corpuscular Volume 94.8 fL (80.0-98.0); Mean Platelet Volume 9.6 fL (9.4-12.4); Platelet Count 251 X10*3/uL (160-400); Red Cell Distribution Width 13.2 % (11.0-16.0)
[2024-10-11 08:03] LABS: Alanine Aminotransferase 22 U/L (0-40); Albumin Level 4.1 g/dL (3.5-5.0); Alkaline Phosphatase 105 U/L (39-117); Anion Gap 12 (12-20); Aspartate Amino Transferase 20 U/L (5-37); Bilirubin Direct 0.1 mg/dL (0.0-0.5); Bilirubin Total 0.4 mg/dL (0.0-1.0); Blood Urea Nitrogen 10 mg/dL (9-16); Calcium 9.1 mg/dL (8.4-10.2); Carbon Dioxide 27 mmol/L (22-29); Chloride 107 mmol/L (96-108); Cholesterol 138 mg/dL (<200); Estimated Glomerular Filt Rate > 60; Glucose Random 91 mg/dL (60-115); HDL Cholesterol 34 mg/dL (>40); LDL Cholesterol Calculated 56 mg/dL (<100); Potassium 4.2 mmol/L (3.3-5.1); Sodium 142 mmol/L (135-145); Total Protein 6.9 g/dL (6.5-8.0); Triglycerides 241 mg/dL (<150)
[2024-10-11 08:07] LABS: Appearance Urine Clear; Color Urine Dark Yellow; Glucose Urine UA Negative (Negative); Leukocyte Esterase Urine Negative (Negative); Nitrite Urine Negative (Negative); PH 5.5 (5.0-9.0); Specific Gravity - Urine 1.025 (1.005-1.025); UMIC TRIGGER UA YES; Urine Blood Small (1+) (Negative); Urine Ketones Trace mg/dL (Negative); Urine Protein 30 (1+) mg/dL (Neg-Trace)
[2024-10-11 08:19] LABS: Thyroid Stimulating Hormone 3.02 uIU/mL (0.32-4.0)
[2024-10-11 08:21] LABS: Bacteria Urine Trace (None Seen); Hyaline Casts Urine 0-2 /LPF (0-2); Squamous Epithelial Cell Urine 0-2 /HPF (0-2); WBC Urine 0-5 /HPF (0-5)
[2024-10-11 08:26] LABS: Prostate Specific Antigen < 0.10 ng/mL (<0.05-4.0)
== END 2024-10-11 06:55 | disposition home or self-care (01) ==
LOC: HO.LAB 06:54
PROVIDERS: Absent Provider Internal Medicine; PCP Internal Medicine; Visit Provider Urology
DX: I10 Essential (primary) hypertension (principal); C61 Malignant neoplasm of prostate; Z12.5 Encounter for screening for malignant neoplasm of prostate
CPT/HCPCS: 36415; 80048; 80061; 80076; 81001; 81003; 84153; 84443; 85027

== ENCOUNTER 2024-10-13 08:24 | Outpatient (AMB) | payer MEDICARE, MEDICAID, SELFPAY ==
--- NOTE | 2024-10-13 08:27 | A.OFFVIS_ITS ---
Intake Visit Reasons: 1y/PSA Intake Note: Pt presents to the office today for a 1 year follow up/PSA. Urology Med:None Antibiotic Allergy: None Blood Thinner: Aspirin Allergies No Known Allergies [No Known Allergies*] Allergy (Verified 10/13/24 08:27) HPI Comments Details: Prieto is a pleasant male. He is a patient of Dr. Varela. He is seen for the following urologic conditions - gross hematuria - radiation cystitis - prostate cancer - male stress incontinence Male stress incontinence 2-3 pads per day Discussed pelvic floor exercises Options such as male advanced sling Will try exercises Radiation cystitis PSA well-controlled Continue yearly surveillance Gross hematuria On aspirin and clopidogrel Episode of gross hematuria in hospital CT scan with large blood clot versus mass in bladder Prostate cancer Robotic prostatectomy 2015 [facility] Salvage radiation PSA 10/23 <0.1 PFSH Medical History Status post coronary artery stent placement CAD (coronary artery disease) Atherosclerotic cardiovascular disease History of [place] (myocardial infarction) (~2015) Essential hypertension Liver cyst History of prostate cancer (~2015) Radiation cystitis Nicotine dependence, cigarettes, uncomplicated Surgical History History of heart artery stent (~2015) History of transurethral resection of prostate (~2015) Family History Father No problems noted. Mother No problems noted. Social History Household Members: Spouse Housing: House Do you presently have visiting nurse or other home services: No Alcohol intake: current Alcohol intake frequency: a few times a month Patient Tobacco Use Status: Current everyday Tobacco user Tobacco use type: Cigarette Cigarettes Per Day: 15 Years Smoked: (current smoker - onset 11yo, 1ppd x 51yrs, now 1/2ppd - 45+PYH) e-Cigarette/Vaping Use: Currently Using service: Yes Current occupational status: retired Cognitive needs: No Hearing needs: No Vision needs: Yes (rx glasses) Review of Systems Const Denies chills and Denies fever(s) Card Reports no additional complaints and Denies syncope Resp Denies cough GI Denies abdominal pain and Denies heartburn Reports as per HPI and Denies change in libido Neuro Denies syncope Psych Denies change in libido Endo Denies change in libido Physical Exam Const General: cooperative, healthy appearing, comfortable and no acute distress Orientation/consciousness: patient oriented x3 HEENT Face and sinus: Yes normal facial exam Mouth: moist mucous membranes Neck Neck: Yes normal visual inspection, Yes full ROM and Yes trachea midline Chest Chest palpation & inspection: normal inspection of the chest Resp Effort & Inspection: normal respiratory effort, able to speak in complete sentences and no respiratory distress GI Inspection: Yes normal to inspection Back/Spine/Pelvis Cervical Spine: normal cervical lordosis Thoracic/Lumbar Spine: thoracic and lumbar spine normal to inspection Skin General skin exam: no rashes or lesions noted Neuro General: patient oriented x3, gait normal, tone normal and moves all extremities Extrem General: Yes normal to inspection and Yes capillary refill normal Results AMB Urinalysis, Automated UA Leukoctes 0 Yahaira/uL Last Edit by Shima Lopez CMA on 10/13/24 08:40 UA Nitrite Negative Last Edit by Shima Lopez CMA on 10/13/24 08:40 UA Urobilinogen 0.2 mg/dL Last Edit by Shima Lopez CMA on 10/13/24 08:40 UA Protein 0 mg/dL Last Edit by Shima Lopez CMA on 10/13/24 08:40 UA pH 6.0 Last Edit by Shima Lopez CMA on 10/13/24 08:40 UA Blood 10 Tomas/uL Last Edit by Shima Lopez CMA on 10/13/24 08:40 UA Specific [place] 1.010 Last Edit by Shima Lopez CMA on 10/13/24 08:40 UA Ketone Negative Last Edit by Shima Lopez CMA on 10/13/24 08:40 UA Bilirubin 0 mg/dL Last Edit by Shima Lopez CMA on 10/13/24 08:40 UA Glucose 0 mg/dL Last Edit by Shima Lopez CMA on 10/13/24 08:40 Results Reviewed Results Reviewed: Laboratory Last Values Urine pH (Auto) 6.0 10/13/24 08:35 Specific [place] (Auto) 1.010 10/13/24 08:35 Urine Protein (Auto) 0 mg/dL 10/13/24 08:35 Glucose (UA)(Auto) 0 mg/dL 10/13/24 08:35 Urine Ketones (Auto) Negative 10/13/24 08:35 Urine Blood (Auto) 10 Tomas/uL 10/13/24 08:35 Urine Nitrite (Auto) Negative 10/13/24 08:35 Urine Bilirubin (Auto) 0 mg/dL 10/13/24 08:35 Urine Urobilinogen (Auto) 0.2 mg/dL 10/13/24 08:35 Leukocyte Esterase (Auto) 0 Yahaira/uL 10/13/24 08:35 Assessment & Plan Assessment & Plan (1) Radiation cystitis: Code(s): N30.40 - Irradiation cystitis without hematuria Category: Medical (2) Prostate cancer: Code(s): C61 - Malignant neoplasm of prostate Category: Medical (3) Male stress incontinence: Code(s): N39.3 - Stress incontinence (female) (male) Category: Medical Plan Male pelvic floor Orders: Orders AMB Urinalysis Automated Today R31.0 - Gross hematuria Patient Instructions: This note is constructed using voice recognition software. While every effort has been made to ensure accuracy teacher aide errors may have been included. Imaging studies, laboratory and physical exam results were discussed and reviewed in detail. No major barriers to patient understanding were identified. An opportunity to ask questions regarding the treatment plan was provided. All questions were answered. The patient expressed understanding and agreement with the above treatment plan. The patient is aware they should contact our office by phone for worsening of their current condition or the appearance of new urologic symptoms. Compliance is encouraged with any medications and followup testing that is ordered. It is a privilege to participate in the urologic care of your patient. If you have any questions or concerns regarding treatment for the above conditions, or other urologic issues, please do not hesitate to contact me. The office telephone contact is [phone]. Sincerely, Dr David Cornell MD, [facility] - Urology Compassionate Specialist Care for the Genitourinary System Coding Level of Care Code Est Pt Level 4 (01422) Complex EM visit Add On G2211 Diagnoses Radiation cystitis N30.40 Prostate cancer C61 Male stress incontinence N39.3
--- OUTSIDE RECORDS SUMMARY | 2024-10-13 08:43 | XMS_ITS ---
Author Organization [facility] Address [address] [address] Care Team Providers Care Unarmed Security Guard Name Role Phone Simon Varela MD Primary Care Provider Ivan Walsh [phone] Medications Medication SIG (Take, Route, Frequency, Duration) [...] Encounter Location Date Provider Diagnosis [facility] [address] 07/29/2023 Ivan Roberto Plan Of Treatment Medication [...] Notes * SANTA HACKETTOB:1960 (63 yo M)Acc No.[id number]:07/29/2023 Patient:?ISH HACKETT :1960???Age:63 Y???Sex:Male Address:[address] [place] [address] * Refills? Start MiraLax (colon prep) Powder, [...] true * Date:? Generated for Susan bueno/Mg/Lizzieitting on:?10/13/2024 08:43 AM EDT
--- OUTSIDE RECORDS SUMMARY | 2024-10-13 08:43 | XMS_ITS | Patient Health Record ---
Author Organization [facility] Address [address] [place] [address] Care Team Providers Care Thread Puller Name Role Phone Simon Varela MD Primary Care Provider Ivan Walsh Unavailable [phone] Allergies No Known Allergies Reason For Referral [...] Status Risk Notes Problem Colon cancer screening (159371298) Colon cancer screening (Z12.11) Active confirmed Problem Long-term current use of antiplatelet drug (situation) (849864085777403 ) Encounter for current care home use of antiplatelet drug (Z79.02) Active confirmed Plan Of Treatment Future Test Test Name Order Date COLONOSCOPY 07/29/2023 Insurance Providers Payer Name Payer Address Payer Phone Subscriber Number Group Number Insured Name Patient Relationship to Insured Coverage Start Date Coverage End Date [facility] [address] [address] [place] [address] [id number] ISH HACKETT Self - patient is the insured MEDICAID OF [facility] [address] [place] [address] [id number] ISH HACKETT Self - patient is the insured MEDICARE OF [place] [address] [place] [id number] [phone] [id number] ISH HACKETT Self - patient is the insured Medical (General) History Medical History History ICD Code Prostate cancer 2016--surgery and then X RT 2016 [place]--has 1 stent in. Chidi ximena to be seeing [facility] [place] [place] [facility] on 08/06/23 for his first OV with them Denies DM,CVA,Lung disease,renal disease Hyperlipidemia Liver cysts seen on ultrasound and CT [place] an 2020 Surgical History Surgery Date(Month/Year) Prostatectomy for cancer 2015
--- OUTSIDE RECORDS SUMMARY | 2024-10-13 08:43 | XMS_ITS ---
Author Organization [facility] Address [address] [place] [address] Care Team Providers Care Roofer Apprentice Name Role Phone Simon Varela MD Primary Care Provider Ivan Walsh [phone] REASON FOR VISIT colon screening Encounters Encounter Location Date Provider Diagnosis [facility] Out[facility] [address], [place] [id number] 10/28/2023 Ivan Roberto Plan Of Treatment No Information Progress Notes * JAY HACKETTONDOB:1960 (64 yo M)Acc No.[id number]:10/28/2023 COLON WITH MAC Patient:?ISH HACKETT Provider:?Ivan Roberto MD :1960???Age:63 Y???Sex:Male Will e:10/28/2023 Address:[address] [place], [place] [id number] Pcp:Simon Varela MD Subjective: * Chief Complaints: [...] MD Date:? 024 Generated for Printi ng/Faxing/eTransmitting on:?10/13/2024 08:43 AM EDT
--- OUTSIDE RECORDS SUMMARY | 2024-10-13 08:44 | XMS_ITS ---
Author Organization [facility] Address [address] [place] [address] Care Team Providers Care Geography Teacher Name Role Phone Simon Varela MD Primary Care Provider Ivan Walsh [phone] REASON FOR VISIT cardiac clearance Encounters Encounter Location Date Provider Diagnosis [facility] [address] [place] [address] 08/17/2023 Ivan Roberto Plan Of Treatment No Information Progress Notes * SANTA HACKETTOB:1960 (63 yo M)Acc No.[id number]:08/17/2023 Patient:?ISH HAKCETT :1960???Age:63 Y???Sex:Male Address:[address] [place] [address], [address] * true * Date:? Generated for Lului ximena/Mg/eTransmitting on:?10/13/2024 08:43 AM EDT
== END 2024-10-13 09:12 | disposition home or self-care (01) ==
LOC: HO.HUSH 08:25
PROVIDERS: PCP Internal Medicine; Visit Provider Urology
DX: N30.40 Irradiation cystitis without hematuria (principal); C61 Malignant neoplasm of prostate; N39.3 Stress incontinence (female) (male); R31.0 Gross hematuria
CPT/HCPCS: 99214; G2211

== ENCOUNTER → 2024-10-13 08:24 | Outpatient (BNVA) | payer MEDICARE, OTHER, SELFPAY | PROVIDERS: PCP Internal Medicine; Visit Provider Urology | DX: N30.40 Irradiation cystitis without hematuria (principal); C61 Malignant neoplasm of prostate; N39.3 Stress incontinence (female) (male) | CPT/HCPCS: 81003; 99212 ==

== ENCOUNTER 2025-01-10 16:05 | Outpatient (REF) | payer MEDICARE, MEDICAID, SELFPAY ==
--- NOTE | ~2025-01-10 | CT_ITS ---
CLINICAL HISTORY: F17.210 - Nicotine dependence, cigarettes, uncomplicated CT lung cancer screening (LDCT) Comparison: None provided Technique: Axial CT images of the chest using low-dose technique. Referring provider counseled the patient on shared decision-making for LDCT screening. Additional counseling was provided on smoking cessation. Effective radiation dose total: DLP 78.4 mGycm, CTDIvol 2.1 mGy. Findings: Lung: Upper lobe predominant mild paraseptal and minimal centrilobular emphysema. No acute process. No suspicious pleural disease. No pulmonary nodule is seen. Coronary artery calcifications: Severe three-vessel calcification. Limited upper abdomen: Diffuse globular thickening of the left adrenal gland, may reflect hyperplasia. Right renal punctate calculus in the upper pole and atrophy. Ill-defined hypodense mass left hepatic lobe anterior medial segment 2.3 x 2.5 cm. Other: Bilateral small gynecomastia. Impression: 1. LungRADS 1: Negative exam. Continue annual screening with low dose Chest CT in 12 months. 2. Indeterminate left hepatic hypodense mass, recommend comparison with previous exam if available or further evaluation by liver CT or MRI. 3. Severe coronary artery calcification. ##L1## Category 1: Normal; continue annual screening Category 2: Benign appearance or behavior, continue annual screening Category 3: Probably benign, [address] recommended Category 4A: Suspicious, [address] recommended; may consider PET/CT Category 4B: Suspicious, Additional diagnostics and/or tissue sampling recommended Category 4X: Suspicious, Additional diagnostics and/or tissue sampling recommended Category 0: Recalls (incomplete screen due to Incomplete coverage, Noise, Respiratory motion, Expiration, Obscured by acute abnormality) This document has been electronically signed by: Danelle Mena MD on 01/11/2025 16:54:14
--- OUTSIDE RECORDS SUMMARY | 2025-01-10 16:33 | XMS_ITS | Patient Health Record ---
Author Organization [facility] Address [address] [place] [address] Care Team Providers Care Dealer Sales Manager Name Role Phone Avery (RETIRED) Simon HALL Primary Care Provide r Unavailable Ivan Roberto Unavailable [phone] Allergies No Known Allergies Reason For Referral [...] Status Risk Notes Problem Colon cancer screening (164452736) Colon cancer screening (Z12.11) Active confirmed Problem Long-term current use of antiplatelet drug (situation) (396038596602216 ) Encounter for current half-way use of antiplatelet drug (Z79.02) Active confirmed Plan Of Treatment Future Test Test Name Order Date COLONOSCOPY 07/29/2023 Insurance Providers Payer Name Payer Address Payer Phone Subscriber Number Group Number Insured Name Patient Relationship to Insured Coverage Start Date Coverage End Date [facility] [address] [address] [place] [address] [id number] ISH HACKETT Self - patient is the insured MEDICAID OF [facility] [address] [place] [phone] [id number] ISH HACKETT Self - patient is the insured MEDICARE OF [place] [address] [place] [id number] [phone] [id number] ISH HACKETT Self - patient is the insured Medical (General) History Medical History History ICD Code Prostate cancer 2016--surgery and then X RT 2016 [place]--has 1 stent in. Neovince bueno to be seeing [facility] on 08/06/23 for his first OV with them Denies DM,CVA,Lung disease,renal disease Hyperlipidemia Liver cysts seen on ultrasound and CT sc an 2020 Surgical History Surgery Date(Month/Year) Prostatectomy for cancer 2015
== END 2025-01-10 16:06 | disposition home or self-care (01) ==
LOC: HO.CT 16:05
PROVIDERS: PCP Internal Medicine; Visit Provider Physician Assistant Medical
DX: Z12.2 Encounter for screening for malignant neoplasm of respiratory organs (principal); F17.210 Nicotine dependence, cigarettes, uncomplicated
CPT/HCPCS: 71271

== ENCOUNTER → 2025-01-10 16:07 | Outpatient (BNV) | payer MEDICARE, MEDICAID, SELFPAY | PROVIDERS: PCP Internal Medicine; Visit Provider Radiology Diagnostic Radiology | DX: F17.210 Nicotine dependence, cigarettes, uncomplicated (principal) | CPT/HCPCS: 71271 ==

== ENCOUNTER 2025-03-21 12:35 | Outpatient (AMB) | payer MEDICARE, SELFPAY ==
--- OUTSIDE RECORDS SUMMARY | 2023-10-28 05:50 | XMS_ITS ---
Author Organization [facility] Address [address] [place] [address] Care Team Providers Care Clinic Scheduler Name Role Phone Avery (RETIRED) Simon HALL Primary Care Provide Ivan Reynolds [phone] REASON FOR VISIT colon screening Encounters Encounter Location Date Provider Diagnosis [facility] [place] [address] [place] [phone] 10/28/2023 Ivan Roberto Plan Of Treatment No Information Progress Notes * SANTA HACKETTOB:1960 (64 yo M)Acc No.[id number]:10/28/2023 COLON WITH MAC Patient: ISH PULIDO Provider: Niru Roberto MD :1960 A ge:63 Y S ex:Male Date:10/28/2023 Address:[address] [place], [place] [id number] Pcp:Simon Varela (RETIRED )MD Subjective: * Chief [...] 10/28/2023 Generated for Lului ng/Famehreeng/eTransmitting on: 1 04:04 PM EDT
--- NOTE | 2025-03-21 12:54 | A.OFFVIS_ITS ---
Vital Signs 03/21/25 12:57 Height 5 ft 8 in Weight 174 lb 2.643 oz BMI 26.5 BP 110/70 Blood Pressure Location Lt brachial Position Sitting Pulse 63 Pulse Source Pulse Oximeter Intake Visit Reasons: 6 mth fu Websphere Administrator Required: No Accompanied by: Self / Same As Patient Allergies No Known Allergies (No Known Allergies*) Allergy (Verified 10/13/24 08:27) Medication List - Last Reconciled 03/21/25 by Candelario Bal MD aspirin (Adult Aspirin Regimen) 81 mg PO DAILY@1900 atorvastatin 40 mg PO DAILY@1900 cholecalciferol (vitamin D3) 25 mcg PO DAILY@1900 isosorbide mononitrate ER 30 mg PO DAILY metoprolol succinate ER (Toprol XL) 25 mg PO DAILY nitroglycerin 0.4 mg sublingual Q5M PRN ticagrelor (Brilinta) 90 mg PO Q12H HPI Comments Details: Prieto returns for follow-up regarding coronary disease. History of LAD PCI in 2015. During prior visit in May, he had mentioned about chest pain which led to another catheterization and circumflex PCI. Since then, he states he is feeling good. No new concerns. Unfortunately, still smokes. [facility] Medical History Status post coronary artery stent placement CAD (coronary artery disease) Atherosclerotic cardiovascular disease History of [place] (myocardial infarction) (~2015) Essential hypertension Liver cyst History of prostate cancer (~2015) Radiation cystitis Nicotine dependence, cigarettes, uncomplicated Surgical History History of heart artery stent (~2015) History of transurethral resection of prostate (~2015) Family History Father No problems noted. Mother No problems noted. Social History Household Members: Spouse Housing: House Do you presently have visiting nurse or other home services: No Alcohol intake: current Alcohol intake frequency: a few times a month Patient Tobacco Use Status: Current everyday Tobacco user Tobacco use type: Cigarette Cigarettes Per Day: 15 Years Smoked: (current smoker - onset 11yo, 1ppd x 51yrs, now 1/2ppd - 45+PYH) e-Cigarette/Vaping Use: Currently Using service: Yes Current occupational status: retired Cognitive needs: No Hearing needs: No Vision needs: Yes (rx glasses) Review of Systems Const Denies chills, Denies fatigue, Denies fever(s), Denies frequent falls, Denies weakness, Denies weight gain and Denies weight loss ENT Denies dizziness Card Denies chest pain, Denies leg edema, Denies lightheadedness, Denies palpitations, Denies dyspnea and Denies dyspnea on exertion Resp Denies cough, Denies dyspnea and Denies dyspnea on exertion GI Denies hematochezia Musc Denies abnormal gait, Denies muscle weakness, Denies numbness, Denies radiating pain into limb and Denies tingling Neuro Denies abnormal gait, Denies dizziness, Denies frequent falls, Denies numbness, Denies tingling and Denies weakness Endo Denies fatigue and Denies palpitations Physical Exam Vital Signs: Last Vital Signs Pulse 63 03/21/25 12:57 BP 110/70 03/21/25 12:57 BMI result Body Mass Index 26.5 Const General: comfortable and no acute distress Orientation/consciousness: patient oriented x3 HEENT Other: Unremarkable Head: Yes normal to inspection Neck Neck: Yes normal visual inspection Chest Chest palpation & inspection: normal inspection of the chest Resp Auscultation: clear to auscultation bilaterally Cardio Palpation: normal PMI Heart sounds: S1 normal heart sound present, S2 normal heart sound present, no gallops, no murmurs and no rubs GI Palpation (GI): Soft to palpation Back/Spine/Pelvis Other: unremarkable Skin General skin exam: no rashes or lesions noted Neuro General: patient oriented x3 Extrem General: Yes normal to inspection Psych Mental Status: mental status grossly normal Assessment & Plan Assessment & Plan (1) Atherosclerotic cardiovascular disease: Code(s): I25.10 - Atherosclerotic heart disease of [place] coronary artery without angina pectoris Category: Medical (2) Essential hypertension: Code(s): I10 - Essential (primary) hypertension Category: Medical (3) Smoking: Code(s): F17.200 - Nicotine dependence, unspecified, uncomplicated Category: Social Hx Plan Cardiac studies reviewed. Cardiac catheterization-05/2025-PCI to mid circumflex; patent LAD stent. In the echocardiogram 09/2023, LVEF is 50-55%. Apical inferior/apex dyskinetic. In the perfusion imaging 09/2023, apical inferior infarction without any ischemia. In the exercise stress test part, attained 8.5 METS, no chest discomfort and no EKG evidence of ischemia. Overall, he remains stable on continue current regimen of aspirin/Brilinta. He can stop Brilinta at the one year kathie. We discussed about this today. He is also on long-acting nitrates and beta-blockers and continue that. Continue statins. Again discussed about smoking cessation but I am not clear if he will actually do that. Follow up in 6 months. In the interim, call with concerns. Discussion Notes I discussed with the patient the importance of continuing aspirin and Brilinta until the end of May. We also talked about the need for lifestyle modifications, including smoking cessation and healthy eating habits, to support cardiovascular health. Patient was informed and verbally consented to the use of an ambient scribe for clinic note documentation during this visit. Patient Instructions: - Continue taking Brilinta until the end of May. - Monitor blood pressure regularly. - Reduce smoking and aim for cessation. - Maintain a healthy diet and lifestyle. Coding Level of Care Code Est Pt Level 4 (24409) Complex EM visit Add On G2211 Diagnoses Atherosclerotic cardiovascular disease I25.10 Essential hypertension I10 Smoking F17.200
[2025-03-21 12:57] VITALS: BP 110/70; PULSE 63; BMI 26.5
--- OUTSIDE RECORDS SUMMARY | 2025-03-21 16:04 | XMS_ITS | Patient Health Record ---
Author Organization [facility] Address [address] [place] [address] Care Team Providers Care Religion Instructor Name Role Phone Avery (RETIRED) Simon HALL Primary Care Provide r Unavailable Ivan Roberto Unavailable [phone] Allergies No Known Allergies Reason For Referral No Information Medications Medication SIG (Take, Route, Frequency, Duration) Notes Start Date End Date Status Metoprolol Succinate ER 25 MG TAKE 1/2 TABLET BY MOUTH EVERY DAY Oral; Duration: 90 Active Clopidogrel Bisulfate 75 MG TAKE 1 TABLE T BY MOUTH EVERY DAY Oral; Duration: 90 Active Atorvastatin Calcium 40 MG TAKE 1 TABLET BY MOUTH EVERY NIGHT Oral; Duration: 90 Active Dulcolax (colon prep) 5 MG take at 3:00 p.m and 7:00p.m. Orally two tablets twice a day for one day; Duration: 1 day 08/02/2023 Active Aspirin 81 81 MG 1 tablet Orally Once a day; Duration: 30 day(s) Active Vitamin D-3 125 MCG (5000 UT) 1 tablet Orally Once a day; Duration: 30 day(s) Active MiraLax (colon prep) 17 GM/SCOOP 1 238 Gm bottle mixed with Gatorade or Crystal Light Orally begin at 5:00 p.m. the day before the procedure; Duration: 1 day 08/02/2023 Active Immunizations Vaccine Route [...] Status Risk Notes Problem Colon cancer screening (833840852) Colon cancer screening (Z12.11) Active confirmed Problem Long-term current use of antiplatelet drug (situation) (789034939284101 ) Encounter for current manager long term care use of antiplatelet drug (Z79.02) Active confirmed Plan Of Treatment Future Test Test Name Order Date COLONOSCOPY 07/29/2023 Insurance Providers Payer Name Payer Address Payer Phone Subscriber Number Group Number Insured Name Patient Relationship to Insured Coverage Start Date Coverage End Date [facility] [address] [address] [place] [address] [id number] ISH HACKETT Self - patient is the insured MEDICAID OF [facility] [address] [place] [phone] [id number] ISH HACKETT Self - patient is the insured MEDICARE OF [place] [address] [place] [address] [id number] ISH HACKETT Self - patient is the insured Medical (General) History Medical History History ICD Code Prostate cancer 2016--surgery and then X RT 2016 [place]--has 1 stent in. Chidi ng to be seeing [facility] [place] 08/06/23 for his first OV with them Denies DM,CVA,Lung disease,renal disease Hyperlipidemia Liver cysts seen on ultrasound and CT sc an 2020 Surgical History Surgery Date(Month/Year) Prostatectomy for cancer 2015
== END 2025-03-21 13:07 | disposition home or self-care (01) ==
LOC: HO.HCS 12:36
PROVIDERS: PCP Internal Medicine; Visit Provider Internal Medicine
DX: I25.10 Atherosclerotic heart disease of native coronary artery without angina pectoris (principal); I10 Essential (primary) hypertension; F17.200 Nicotine dependence, unspecified, uncomplicated
CPT/HCPCS: 99214; G2211

== ENCOUNTER → 2025-03-21 12:35 | Outpatient (BNVA) | payer MEDICARE, SELFPAY | PROVIDERS: PCP Internal Medicine; Visit Provider Internal Medicine | DX: I25.10 Atherosclerotic heart disease of native coronary artery without angina pectoris (principal); I10 Essential (primary) hypertension; F17.210 Nicotine dependence, cigarettes, uncomplicated | CPT/HCPCS: 99212 ==

== ENCOUNTER 2025-03-22 12:45 | Outpatient (AMB) | payer MEDICARE, MEDICAID, SELFPAY ==
--- OUTSIDE RECORDS SUMMARY | 2023-10-28 05:50 | XMS_ITS ---
Author Organization [facility] Address [address] [place] [address] Care Team Providers Care Storekeeper Steward Name Role Phone Avery (RETIRED) Simon HALL Primary Care Provide Ivan Reynolds [phone] REASON FOR VISIT colon screening Encounters Encounter Location Date Provider Diagnosis [facility] [place] [facility] [address] [place] [id number] 10/28/2023 Ivan Roberto Plan Of Treatment No Information Progress Notes * SANTA HACKETTOB:1960 (64 yo M)Acc No.[id number]:10/28/2023 COLON WITH MAC Patient: ISH PULIDO Provider: Niru Roberto MD :1960 A ge:63 Y S ex:Male Date:10/28/2023 Address:[address] [place], [place] [id number] Pcp:Simon Varela (RETIRED )MD Subjective: * Chief Complaints: * 1 . Colon screening. * Medical History: Objective: * Vitals: Assessment: Plan: * Treatment: * * The named appointment provid er may or may not be the originator of this progress note, and it is not deemed complete until electronically signed by the appointment provider. Sign off status: Pending * Provider: Niru Roberto MD Date: 0 10/28/2023 Generated for Lului ng/Famehreeng/eTransmitting on: 1 05:41 PM EDT
--- NOTE | 2025-03-22 13:07 | MHC.PC.OV ---
Vital Signs 03/22/25 13:08 Height 5 ft 8 in Weight 177 lb 4 oz BMI 26.9 BP 102/60 Blood Pressure Location Lt brachial Position Sitting Respiration 16 Pulse 73 Pulse Source Pulse Oximeter Temp 98.6 F Temp Source Oral Pulse Oximetry (%) 94 Oxygen Delivery Method Room Air Intake Visit Reasons: routine - see comments Hospital Carrier Required: No Accompanied by: Self / Same As Patient Allergies No Known Allergies (No Known Allergies*) Allergy (Verified 03/22/25 13:08) Medication List - Last Reconciled 03/22/25 by Emmanuel Leigh MD aspirin (Adult Aspirin Regimen) 81 mg PO DAILY@1900 atorvastatin 40 mg PO DAILY@1900 cholecalciferol (vitamin D3) 25 mcg PO DAILY@1900 isosorbide mononitrate ER 30 mg PO DAILY metoprolol succinate ER (Toprol XL) 25 mg PO DAILY nicotine (polacrilex) 2 mg buccal Q2H nitroglycerin 0.4 mg sublingual Q5M PRN ticagrelor (Brilinta) 90 mg PO Q12H Tobacco use date assessed: 09/28/24 Dental Screening Dental Screen Date: 09/28/24 HPI HPI Comments History of Present Illness Details The patient is a 64-year-old male presenting with urinary incontinence issues. This problem began after he underwent prostatectomy for prostate cancer in 2016. He notes that the incontinence occurs particularly during increased physical activities, leading to urinary leakage despite wearing pads. The patient reports that voiding before activities does not alleviate the condition. Additionally, the patient has a history of coronary artery disease with two stents placed, the most recent being around a year ago. He continues to take a regimen of medications for cardiac health including aspirin, Brilinta, and metoprolol, alongside atorvastatin for hyperlipidemia. The patient's recent credit resolution representative assessment shows an ejection fraction of 50-55%, considered at the lower end of the normal range, and a successful stress test. Regarding lifestyle factors, the patient acknowledges smoking and notes a history of smoking since the age of 11, consuming about one pack of cigarettes every three days. He has attempted cessation with patches and pills without success. Medical History: - Prostate cancer treated with prostatectomy in 2016. - Coronary artery disease with two stents placed. - Hyperlipidemia managed pharmacologically. - Hypertension managed with medication. Surgical History: - Prostatectomy for prostate cancer in 2016. Medications: - Aspirin for coronary artery disease. - Brilinta 90 mg twice daily for coronary artery disease. - Atorvastatin for hyperlipidemia. - Metoprolol succinate 25 mg daily for hypertension. - Isosorbide mononitrate 30 mg daily for management of blood pressure. Diagnostic Results: - Cardiac ejection fraction: 50-55%. - Successful cardiac stress test. - May blood work: Normal counts, electrolytes, and cholesterol (LDL at 56). 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 - Tobacco use: Smoking since the age of 11, approximately one pack every three days. - Physical activity limited due to urinary incontinence. FOR[facility]LY [facility] Medical History (Updated 03/22/25 @ 13:24 by Emmanuel Leigh MD) Hyperlipidemia Status post coronary artery stent placement CAD (coronary artery disease) Atherosclerotic cardiovascular disease History of [place] (myocardial infarction) (~2015) Essential hypertension Liver cyst History of prostate cancer (~2015) Radiation cystitis Nicotine dependence, cigarettes, uncomplicated Surgical History History of heart artery stent (~2015) History of transurethral resection of prostate (~2015) Family History Father No problems noted. Mother No problems noted. Social History Household Members: Spouse Housing: House Do you presently have visiting nurse or other home services: No Alcohol intake: current Alcohol intake frequency: a few times a month Patient Tobacco Use Status: Current everyday Tobacco user Tobacco use type: Cigarette Cigarettes Per Day: 15 Years Smoked: (current smoker - onset 11yo, 1ppd x 51yrs, now 1/2ppd - 45+PYH) e-Cigarette/Vaping Use: Currently Using service: Yes Current occupational status: retired Cognitive needs: No Hearing needs: No Vision needs: Yes (rx glasses) Questionnaire PHQ-9 Over the last 2 weeks, how often have you been bothered by any of the following problems? 1. Little interest or pleasure in doing things: not at all 2. Feeling down, depressed, or hopeless: not at all 3. Trouble falling or staying asleep, or sleeping too much: not at all 4. Feeling tired or having little energy: not at all 5. Poor appetite or overeating: not at all 6. Feeling bad about yourself - or that you are a failure or have let yourself or your family down: not at all 7. Trouble concentrating on things, such as reading the newspaper or watching television: not at all 8. Moving or speaking so slowly that other people could have noticed. Or the opposite - being so fidgety or restless that you have been moving around a lot more than usual: not at all 9. Thoughts that you would be better off or of hurting yourself in some way: not at all Total score: 0 Depression Screening Interpretation: Negative Depression Screening Done: Yes 57349 - PHQ-9 Billing: Yes Source: Developed by Drs. Ivan Ruiz, Muna Renee, Vince Spivey and colleagues, with an educational cristian from [employer]. Thrive Questionnaire Date Thrive assessed: 03/22/25 I am a: Patient What is your living situation today?: I have a steady place to live Within the past 12 months, did the food you bought not last and you didn't have the money to get more?: Never true Within the past 12 months, did you worry whether your food would run out before you got money to buy more?: Never true Do you have trouble paying for medicines?: No Do you have trouble getting transportation to medical appointments?: No Do you have trouble paying your heating and electricity bill?: No Do you have trouble taking care of your child, family member or friend?: No Do you have trouble with day-to-day activities such as bathing, preparing meals, shopping, managing finances, etc.?: No Are you currently unemployed and looking for a job?: No Are you interested in more education?: No THRIVE Score: 0 AUDIT C Alcohol Use Questionnaire (AUDIT-C) 1. How often do you have a drink containing alcohol?: Never 2. How many drinks containing alcohol do you have on a typical day when you are drinking?: 1 or 2 3. How often do you have six or more drinks on one occasion?: Never Total Score: 0 Score Reviewed/Action Taken: No CHUCHO-7 AMB Questionnaire CHUCHO-7 Date CHUCHO - 7 assessed: 03/22/25 Feeling nervous, anxious, or on edge: 0 = Not at all Not being able to stop or control worryin = Not at all Worrying too much about different things: 0 = Not at all Trouble relaxin = Not at all Being so restless that it is hard to sit still: 0 = Not at all Becoming easily annoyed or irritable: 0 = Not at all Feeling afraid as if something awful might happen: 0 = Not at all Total CHUCHO-7 score (0-4 normal; 5-9 mild; 10-14 moderate; 15-21 severe): 0 Source: Developed by Drs. Ivan Ruiz, Muna Renee, Vince Spivey and colleagues, with an educational cristian from [employer]. CHUCHO-7 Assessment Billing CHUCHO-7 Assessment Tool: CHUCHO-7 Assessment 95338 Review of Systems Narrative - Genitourinary: Reports urinary incontinence. - Cardiovascular: Denies chest pain, shortness of breath. - Neurological: Denies headaches, vision changes. - General: Reports feeling 95% well, with fatigue related to urinary incontinence. All systems reviewed & are unremarkable except as reviewed in HPI and above Physical exam (Primary Care) Vital Signs: Last Vital Signs Temp 98.6 F 03/22/25 13:08 Pulse 73 03/22/25 13:08 Resp 16 03/22/25 13:08 BP 102/60 03/22/25 13:08 Pulse Ox 94 03/22/25 13:08 Oxygen Delivery Method Room Air 03/22/25 13:08 BMI result Body Mass Index 26.9 Tobacco/Smoking Status: Tobacco use Status Tobacco use date assessed 09/28/24 03/22/25 13:12 Patient Tobacco Use Status Current everyday Tobacco 03/22/25 13:12 Tobacco use type Cigarette 03/22/25 13:12 e-Cigarette/Vaping Use Currently Using 03/22/25 13:12 Are you ready to quit: Yes Tobacco cessation counseling provided: Yes Relapse Prevention: discussed the importance of a supportive environment and discussed extending NRT Number of minutes spent counselin CPT code: 65356 - 4-10 Minutes Depression Screening Interpretation: Negative Thrive Assessment: Date of Thrive Assessment Date Thrive assessed 09/10/23 03/22/25 13:12 Narrative General: Alert and oriented, Well nourished, No acute distress. Eye: Pupils are equal, round and reactive to light, Intact accommodation, Extraocular movements are intact, Normal conjunctiva, Vision unchanged. HENT: Normocephalic, Atraumatic, Tympanic membranes are clear, Normal hearing, Oral mucosa is moist, No pharyngeal erythema, Ear canals patent. Respiratory: Lungs CTA bilaterally, No wheeze, Respirations are non-labored. Cardiovascular: Regular rate, Regular rhythm, S1 auscultated, S2 auscultated, No murmur, Good pulses equal in all extremities, Normal peripheral perfusion, No edema. Gastrointestinal: Soft, Non-tender, Non-distended, Normal bowel sounds, No organomegaly. Musculoskeletal: Normal range of motion, Normal strength, No tenderness, No swelling, No deformity, Normal gait. Integumentary: Warm, Dry, [place], Intact. Neurologic: Alert, Oriented, Normal sensory, Normal motor function, No focal defects, Cranial Nerves II-XII are grossly intact, Normal deep tendon reflexes. Psychiatric: Cooperative, Appropriate mood & affect, Normal judgment. Coding Level of Care Code Est Pt Level 4 (89093) Complex EM visit Add On G2211 Diagnoses Essential hypertension I10 Atherosclerotic cardiovascular disease I25.10 Prostate cancer C61 Male stress incontinence N39.3 Other hyperlipidemia E78.49 Hyperlipidemia type: other hyperlipidemia Nicotine dependence, cigarettes, uncomplicated F17.210 Additional Codes PHQ-9 - 66195 - PHQ-9 Billing: Yes ([id number]) CHUCHO-7 Assessment Billing - CHUCHO-7 Assessment Tool: CHUCHO-7 Assessment 68117 ([id number]) Vital Signs *Quality* - CPT code: 49826 - 4-10 Minutes ([id number]) Assessment & Plan Assessment & Plan (1) Essential hypertension: Comment: - Continue with current antihypertensive regimen. - Blood pressure currently well-controlled. Code(s): I10 - Essential (primary) hypertension Category: Medical (2) Atherosclerotic cardiovascular disease: Comment: - Continue current regimen of aspirin and atorvastatin. - Discontinue Brilinta at the end of May as planned. - Monitor cardiovascular status with periodic stress testing. Code(s): I25.10 - Atherosclerotic heart disease of [place] coronary artery without angina pectoris Category: Medical (3) Prostate cancer: Comment: - History of prostate cancer; currently under observation. Code(s): C61 - Malignant neoplasm of prostate Category: Medical (4) Male stress incontinence: Comment: - Continue using pads for management. - Encourage continued follow-up with urology. Code(s): N39.3 - Stress incontinence (female) (male) Category: Medical (5) Hyperlipidemia: Comment: - Continue atorvastatin therapy as the LDL level is well controlled. Code(s): E78.5 - Hyperlipidemia, unspecified Category: Medical Qualifiers: Hyperlipidemia type: other hyperlipidemia Qualified Code(s): E78.49 - Other hyperlipidemia (6) Nicotine dependence, cigarettes, uncomplicated: Comment: (current smoker - onset 11yo, 1ppd x 52yrs, now 1/2ppd - 45+PYH) - Strongly advised smoking cessation; discussed potential use of nicotine gum. - Monitor and encourage continued efforts to quit, emphasizing cardiovascular risk. Code(s): F17.210 - Nicotine dependence, cigarettes, uncomplicated Category: Medical Plan: Health Maintenance: - Discussed smoking cessation and its effects on cardiovascular health. - Reviewed yearly timeline for cessation of Brilinta. Patient was informed and verbally consented to the use of an ambient scribe for clinic note documentation during this visit. Plan During the visit, I discussed with the patient his urinary incontinence and the current management with pads. We reviewed his coronary artery disease treatment, discussing the cessation of Brilinta by the end of May. I reinforced the importance of smoking cessation, suggesting nicotine gum as an option. We also covered his diabetes screening plans, noting that his cholesterol and cardiovascular evaluations were satisfactory. I suggested maintaining his current medication regimen and continued monitoring and follow-up with both cardiology and urology. The patient consented to the outlined management plans. Orders: Orders HIV Ab/Ag 6 Months Z00.00 - Encounter for general adult medical examination without abnormal findings Lipid Panel 6 Months Z00.00 - Encounter for general adult medical examination without abnormal findings Syphilis Screen 6 Months Z00.00 - Encounter for general adult medical examination without abnormal findings Complete Blood Count Auto Diff 6 Months Z00.00 - Encounter for general adult medical examination without abnormal findings Comprehensive Met. Panel 6 Months Z00.00 - Encounter for general adult medical examination without abnormal findings Hemoglobin A1c 6 Months Z00.00 - Encounter for general adult medical examination without abnormal findings Hepatitis A,B,C Profile 6 Months Z00.00 - Encounter for general adult medical examination without abnormal findings TSH reflex Free T4 6 Months Z00.00 - Encounter for general adult medical examination without abnormal findings Vitamin D 25-OH Total 6 Months Z00.00 - Encounter for general adult medical examination without abnormal findings Medications: New nicotine (polacrilex) 2 mg buccal Q2H 100 ea 4RF Patient Instructions: - Use pads for managing urinary incontinence. - Keep taking your heart medications as prescribed. - Stop taking Brilinta at the end of May. - Go for the ordered blood work a week before your next appointment in October. - Consider trying nicotine gum to assist with smoking cessation. - Keep yourself physically active and eat a healthy diet. - Follow up with urology as needed for urinary incontinence management. - Attend the next physical exam in six months.
[2025-03-22 13:08] VITALS: BP 102/60; PULSE 73; RESP 16; TEMP 37; O2SAT 94; BMI 26.9
--- OUTSIDE RECORDS SUMMARY | 2025-03-22 17:41 | XMS_ITS | Patient Health Record ---
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 (Z79.02) Active confirmed Plan Of Treatment Future Test Test Name Order Date COLONOSCOPY 07/29/2023 Insurance Providers Payer Name Payer Address Payer Phone Subscriber Number Group Number Insured Name Patient Relationship to Insured Coverage Start Date Coverage End Date [facility] [address] [address] [place] [address] [id number] ISH HACKETT Self - patient is the insured MEDICAID OF [facility] [address] [place] [address] [id number] ISH HACKETT Self - patient is the insured MEDICARE OF [place] [address] [place] [address] [id number] ISH HACKETT Self - patient is the insured Medical (General) History Medical History History ICD Code Prostate cancer 2016--surgery and then X RT 2016 CT--has 1 stent in. Chidi ng to be seeing [facility] on 08/06/23 for his first OV with them Denies DM,CVA,Lung disease,renal disease Hyperlipidemia Liver cysts seen on ultrasound and CT sc an 2020 Surgical History Surgery Date(Month/Year) Prostatectomy for cancer 2015
== END 2025-03-22 13:25 | disposition home or self-care (01) ==
LOC: HO.HMCHD 12:46
PROVIDERS: PCP Internal Medicine; Visit Provider Student in an Organized Health Care Education/Training Program
DX: I10 Essential (primary) hypertension (principal); I25.10 Atherosclerotic heart disease of native coronary artery without angina pectoris; C61 Malignant neoplasm of prostate; N39.3 Stress incontinence (female) (male); E78.49 Other hyperlipidemia; F17.210 Nicotine dependence, cigarettes, uncomplicated

== ENCOUNTER → 2025-03-22 12:45 | Outpatient (BNVA) | payer MEDICARE, MEDICAID, SELFPAY | PROVIDERS: PCP Internal Medicine; Visit Provider Student in an Organized Health Care Education/Training Program | DX: I10 Essential (primary) hypertension (principal); I25.10 Atherosclerotic heart disease of native coronary artery without angina pectoris; C61 Malignant neoplasm of prostate; N39.3 Stress incontinence (female) (male); E78.49 Other hyperlipidemia; F17.210 Nicotine dependence, cigarettes, uncomplicated; Z79.82 Long term (current) use of aspirin; Z79.899 Other long term (current) drug therapy; Z13.31 Encounter for screening for depression; Z13.39 Encounter for screening examination for other mental health and behavioral disorders | CPT/HCPCS: 96127; 99212 ==

== ENCOUNTER 2025-04-18 08:40 | Outpatient (AMB) | payer MEDICARE, MEDICAID, SELFPAY ==
--- NOTE | 2025-04-18 08:42 | A.OFFVIS_ITS ---
Intake Visit Reasons: 6M follow up Intake Note: Pt presents to the office today for a 6 mo follow up. Urology Med:None Antibiotic Allergy: None Blood Thinner: Aspirin Physical Ther Required: No Accompanied by: Self / Same As Patient Allergies No Known Allergies (No Known Allergies*) Allergy (Verified 04/18/25 08:44) HPI Comments Details: Prieto is a pleasant male. He is a patient of Dr. Varela. He is seen for the following urologic conditions - gross hematuria - radiation cystitis - prostate cancer - male stress incontinence Male stress incontinence Persistent 3-4 pads per day Pelvic floor exercises not helpful Is interested in possible sling Did discuss sling will reduce pad use to approximately 1 pad per day Plan office cystoscopy to check for urethral apposition Radiation cystitis PSA well-controlled Continue yearly surveillance Gross hematuria On aspirin and clopidogrel Episode of gross hematuria in hospital CT scan with large blood clot versus mass in bladder Prostate cancer Robotic prostatectomy 2015 [facility] Salvage radiation PSA 10/23 <0.1 PFS Medical History (Updated 03/22/25 @ 13:24 by Emmanuel Leigh MD) Hyperlipidemia Status post coronary artery stent placement CAD (coronary artery disease) Atherosclerotic cardiovascular disease History of [place] (myocardial infarction) (~2015) Essential hypertension Liver cyst History of prostate cancer (~2015) Radiation cystitis Nicotine dependence, cigarettes, uncomplicated Surgical History History of heart artery stent (~2015) History of transurethral resection of prostate (~2015) Family History Father No problems noted. Mother No problems noted. Social History Household Members: Spouse Housing: House Do you presently have visiting nurse or other home services: No Alcohol intake: current Alcohol intake frequency: a few times a month Patient Tobacco Use Status: Current everyday Tobacco user Tobacco use type: Cigarette Cigarettes Per Day: 15 Years Smoked: (current smoker - onset 11yo, 1ppd x 51yrs, now 1/2ppd - 45+PYH) e-Cigarette/Vaping Use: Currently Using service: Yes Current occupational status: retired Cognitive needs: No Hearing needs: No Vision needs: Yes (rx glasses) Review of Systems Const Denies chills and Denies fever(s) Card Reports no additional complaints and Denies syncope Resp Denies cough GI Denies abdominal pain and Denies heartburn Reports as per HPI and Denies change in libido Neuro Denies syncope Psych Denies change in libido Endo Denies change in libido Physical Exam Const General: cooperative, healthy appearing, comfortable and no acute distress Orientation/consciousness: patient oriented x3 HEENT Face and sinus: Yes normal facial exam Mouth: moist mucous membranes Neck Neck: Yes normal visual inspection, Yes full ROM and Yes trachea midline Chest Chest palpation & inspection: normal inspection of the chest Resp Effort & Inspection: normal respiratory effort, able to speak in complete sentences and no respiratory distress GI Inspection: Yes normal to inspection Back/Spine/Pelvis Cervical Spine: normal cervical lordosis Thoracic/Lumbar Spine: thoracic and lumbar spine normal to inspection Skin General skin exam: no rashes or lesions noted Neuro General: patient oriented x3, gait normal, tone normal and moves all extremities Extrem General: Yes normal to inspection and Yes capillary refill normal Assessment & Plan Assessment & Plan (1) Prostate cancer: Comment: - History of prostate cancer; currently under observation. Code(s): C61 - Malignant neoplasm of prostate Category: Medical (2) Male stress incontinence: Comment: - Continue using pads for management. - Encourage continued follow-up with urology. Code(s): N39.3 - Stress incontinence (female) (male) Category: Medical Plan Office cysto Patient Instructions: This note is constructed using voice recognition software. While every effort has been made to ensure accuracy pediatric lpn errors may have been included. Imaging studies, laboratory and physical exam results were discussed and reviewed in detail. No major barriers to patient understanding were identified. An opportunity to ask questions regarding the treatment plan was provided. All questions were answered. The patient expressed understanding and agreement with the above treatment plan. The patient is aware they should contact our office by phone for worsening of their current condition or the appearance of new urologic symptoms. Compliance is encouraged with any medications and followup testing that is ordered. It is a privilege to participate in the urologic care of your patient. If you have any questions or concerns regarding treatment for the above conditions, or other urologic issues, please do not hesitate to contact me. The office telephone contact is [phone]. Sincerely, Dr David Cornell MDNIC [facility] - Urology Compassionate Specialist Care for the Genitourinary System Coding Level of Care Code Est Pt Level 3 (33244) Complex EM visit Add On G2211 Diagnoses Prostate cancer C61 Male stress incontinence N39.3
== END 2025-04-18 09:05 | disposition home or self-care (01) ==
LOC: HO.HUSH 08:41
PROVIDERS: PCP Internal Medicine; Visit Provider Urology
DX: C61 Malignant neoplasm of prostate (principal); N39.3 Stress incontinence (female) (male)
CPT/HCPCS: 99213; G2211

== ENCOUNTER → 2025-04-18 08:40 | Outpatient (BNVA) | payer MEDICARE, MEDICAID, SELFPAY | PROVIDERS: PCP Internal Medicine; Visit Provider Urology | DX: C61 Malignant neoplasm of prostate (principal); N39.3 Stress incontinence (female) (male) | CPT/HCPCS: 99212 ==